=== PATIENT | male | born 1930 | race Caucasian/White ===

== ENCOUNTER 2016-07-13 06:27 | Day surgery (SDC) | payer OTHER ==
[~2016-07-13] VITALS: Ht 175.3 cm; Wt 78.0 kg
[~2016-07-13 06:27] MED LIST: AMLO5TAB96 PO; ASPI81 PO; FIORIC PO; LEVO.025 PO; PRAV80TA PO; VITA100017 PO; VITA10002 PO
[2016-07-13] MEDS ORDERED: NS 1000P @30 MLS/HR (KVO) IV SCH (07:00)
[2016-07-13] MEDS ORDERED: MULTTAB67 PO (07:04)
[2016-07-13 07:10] VITALS: BP 137/78; PULSE 77; RESP 18; TEMP 98.2; O2SAT 97
[2016-07-13 07:28] LABS: AUTOMATED NEUTROPHIL # 3.9 TH/MM3 (1.8-7.7); BASOPHIL % 0.6 % (0.0-2.0); EOSINOPHIL # 0.2 TH/MM3 (0-0.4); EOSINOPHIL % 2.9 % (0.0-4.0); HEMATOCRIT 43.1 % (39.0-51.0); HEMO FLAGS DIFF FINAL; LYMPH % 24.5 % (9.0-44.0); LYMPHOCYTE # 1.5 TH/MM3 (1.0-4.8); MEAN CELL VOLUME 94.3 FL (80.0-100.0); MEAN CORPUSCULAR HGB CONC 33.9 % (32.0-36.0); MONO % 8.1 % (0.0-8.0); NEUT % 63.9 % (16.0-70.0); PLATELET COUNT 183 TH/MM3 (150-450); RED BLOOD COUNT 4.57 MIL/MM3 (4.50-5.90); WHITE BLOOD COUNT 6.1 TH/MM3 (4.0-11.0)
[2016-07-13 07:39] LABS: APTT (PATIENT) 31.3 SEC (24.3-30.1); PROTHROMBIN TIME - PATIENT 10.6 SEC (9.8-11.6)
[2016-07-13 07:51] LABS: POTASSIUM 3.5 MEQ/L (3.5-5.1)
[2016-07-13] MEDS ORDERED: diphenhydrAMINE HCL 50 MG CAP ONE (07:56)
[2016-07-13] MEDS ORDERED: diphenhydrAMINE HCL 50 MG CAP PO SCH (08:30)
[2016-07-13] MEDS ORDERED: HEPARIN-NS/PF INJ 500 ML ONE (08:41)
[2016-07-13] MEDS ORDERED: MIDAZOLAM HCL 2 MG/2 ML VIAL ONE (08:54)
[2016-07-13] MEDS ORDERED: HEPARIN SODIUM - IV 10,000 UNITS/10 ML VIAL ONE (09:32)
[2016-07-13] MEDS ORDERED: IOHEXOL 350 MG/ML 100 ML BTL (for Cath Lab) OTHER ONE (10:00)
[2016-07-13] MEDS ORDERED: ATROPINE SULFATE 1 MG/10 ML SYRINGE ONE (11:49)
--- NOTE | 2016-07-13 13:14 | EC ---
Study Study Date:07/13/2016 STUDY CONCLUSIONS SUMMARY - Procedure narrative: Transthoracic echocardiography. Image quality was adequate. Scanning was performed from the parasternal, apical, and subcostal acoustic windows. - Left ventricle: The cavity size was normal. Wall thickness was at the upper limits of normal. Systolic function was normal. The estimated ejection fraction was 40%, in the range of 40% to 40%, by the Teichholz method. Wall motion was normal; there were no regional wall motion abnormalities. - Aortic valve: Trace regurgitation. Mean gradient:31mm Hg (S), suggesting moderate aortic stenosis. - Tricuspid valve: Trace to mild regurgitation. If LV function is below 40, please consider prescribing an ACEI or ARB or document rationale for non-use. PROCEDURE DATA STUDY STATUS: Elective. Procedure: Transthoracic echocardiography. Image quality was adequate. Scanning was performed from the parasternal, apical, and subcostal acoustic windows. Study completion: The patient tolerated the procedure well. Transthoracic echocardiography. M-mode, complete 2D, complete spectral Doppler, and color Doppler. Height: Height: 69in. Weight: Weight: 170.6lb. Body mass index: BMI: 25.3kg/m^2. Body surface area: BSA: 1.93m^2. Patient status: Inpatient. CARDIAC ANATOMY LEFT VENTRICLE: The cavity size was normal. Wall thickness was at the upper limits of normal. Systolic function was normal. The estimated ejection fraction was 40%, in the range of 40% to 40%, by the Teichholz method. Wall motion was normal; there were no regional wall motion abnormalities. AORTIC VALVE: Trileaflet; moderately thickened, moderately calcified leaflets. Doppler: Trace regurgitation. Valve area: 0.86cm^2 (Vmax). Indexed valve area: 0.45cm^2/m^2 (Vmax). Mean gradient:31mm Hg (S), suggesting moderate aortic stenosis. AORTA: Aortic root: The aortic root was normal in size. MITRAL VALVE: Structurally normal valve. Doppler: Transvalvular velocity was within the normal range. There was no evidence for stenosis. No regurgitation. LEFT ATRIUM: The atrium was normal in size. RIGHT VENTRICLE: The cavity size was normal. Wall thickness was normal. PULMONIC VALVE: Doppler: Transvalvular velocity was within the normal range. There was no evidence for stenosis. No regurgitation. TRICUSPID VALVE: Structurally normal valve. Doppler: Transvalvular velocity was within the normal range. Trace to mild regurgitation. PULMONARY ARTERY: The main pulmonary artery was normal-sized. Systolic pressure was within the normal range. RIGHT ATRIUM: The atrium was normal in size. PERICARDIUM: There was no pericardial effusion. SYSTEMIC VEINS: Inferior vena cava: The vessel was normal in size. Patient weight: 170.6lb _Ejection fraction:_ 65-75% _Fractional shortening:_ 32% up to 5Kg 5-11.5Kg 11.6-22.9Kg 23-45Kg 45-57Kg Aortic Root 7-13 <17 13-22 17-27 17-27 LA diam 6-13 <23 24-38 33-47 37-40 RVID 10-17 7-15 7-15 7-18 8-17 LVIDd 12-22 <32 24-38 33-47 37-40 LVPW 2-4 3-6 5-7 6-8 7-8 IVS 2-4 3-6 5-7 6-8 7-8 BASIC MEASUREMENTS ADULT NORMAL Left ventricle LV internal dimension, ED, chordal 44 mm 43-52 level, PLAX LV internal dimension, ES, chordal 37.4 mm 23-38 level, PLAX Fractional shortening, chordal level, *15 % >29 PLAX LV posterior wall thickness, ED 8.3 mm IVS/LVPW ratio, ED 0.85 <1.3 Ventricular septum Septal thickness, ED 7.03 mm Aortic valve Leaflet separation 15 mm 15-26 BASIC MEASUREMENTS ADULT NORMAL Aortic valve Leaflet separation 15 mm 15-26 Aorta Root diameter, ED 23 mm 20-37 Left atrium Anterior-posterior dimension, ES 29 mm 19-40 Anterior-posterior dimension index, ES 1.5 cm/m^2 <2.2 LA/aortic root ratio 1.26 DOPPLER MEASUREMENTS ADULT NORMAL Main pulmonary artery Pressure, S 23 mm Hg =30 Aortic valve Peak velocity, S 280 cm/s Mean velocity, S 192 cm/s VTI, S 61.9 cm Mean gradient, S 18 mm Hg Valve area, Vmax 0.86 cm^2 Valve area index, Vmax 0.45 cm^2/m^2 Mitral valve Maximal regurgitant velocity 221 cm/s Tricuspid valve Regurgitant peak velocity 195 cm/s Peak RV-RA gradient, S 15 mm Hg Maximal regurgitant velocity 195 cm/s Systemic veins Estimated CVP 10 mm Hg Right ventricle RV pressure, S *37 mm Hg <30 Pulmonic valve Peak velocity, S 186 cm/s LEGEND: Mean values are shown as u=mean value. Asterisk (*) arreola values outside specified normal range. Amended Vern Mcdonough [id number]
--- NOTE | 2016-07-13 13:24 | MA ---
cc: LUZ MARINA TIPTON DATE 07/13/2016 DATE OF 1930 PROCEDURE PERFORMED 1. Left heart catheterization 2. Right heart catheterization 3. Right common femoral artery angiography INDICATIONS Severe symptomatic aortic stenosis. PROCEDURE DESCRIPTION Consent signed. The patient was brought into the cardiac laborer syrup machine in a fasting state. The right groin was prepped and draped in a sterile fashion using 1% lidocaine for local anesthesia. A 6-Sudanese sheath was inserted into the right common femoral artery and an 8-Sudanese sheath was inserted into the right common femoral vein. Common femoral artery angiography was performed to confirm position of the sheath. Fluoroscopy guided a [place]Marielle was floated to wedge. Cardiac blood samples for cardiac outputs were taken followed by recording of pressures in the wedge PA, RV and RA. Then we proceeded to do a left heart catheterization. Then we perfomed selective right and left coronary angiography with JL-5 and a JR-4 diagnostic catheters. Angiography was taken in multiple views. A AL-2 over a straight stiff guidewire was used to cross the aortic valve. Then the catheter was exchanged over a wire with a dual angle lumen pigtail. Simultaneous aortic and LV recordings were taken. The patient tolerated the procedure well without complications. ESTIMATED BLOOD LOSS Less than 30 cc. The right arterial access site was closed with a Perclose device. The vein access site was closed with manual pressure. ANGIOGRAPHIC RESULTS The left ventricular pressure was 141/4 with an LVEDP of 6. The aortic pressure was 170/55 with a mean of 85 which was 20/4 with a mean of 11. RV 22/ 1 with a mean of 2. RA 3/3 with a mean of 1. ANGIOGRAPHIC RESULTS 1. The right coronary artery has anterior takeoff, is a dominant vessel, has minimal luminal irregularities, however, nonobstructive coronary artery disease and TARAS-3 flow. 2. The left main is patent with no obstructive coronary artery disease. 3. The LAD and a transapical vessel. It has a significant 90% lesion after S2. There is one big diagonal that bifurcates. The takeoff is right before the second septal. The lower branch of that diagonal has a 70% lesion. 4. The left circumflex artery is a small vessel. It gave off an OM-1 that is a OM-1 that has two side branches which are patent with nonobstructive coronary artery disease. CONCLUSION 1. Moderate to severe aortic stenosis 2. Two two-vessel coronary artery disease, the diagonal and the LAD. RECOMMENDATIONS Continue aggressive medical management for coronary artery disease. Patient has low EF will need to schedule for Dobutamine Stress Echocardiogram to better assess severity of the Aortic Stenosis (Low Flow Low Gradient ). If severe will coordinate with CT surgery for AVR and bypass evaluation. MD RACHELE Moncada/HAYES /12:49 PM /1:08 PM TOSHIA
--- NOTE | 2016-07-13 22:45 | EKG ---
Date Performed: 07/13/2016 Time Performed: 07:34:14 PTAGE: 86 years EKG: Sinus rhythm with PVC(s) with 1st degree A-V block Leftward axis Right bundle branch block Abnormal ECG PREVIOUS TRACING : 06/27/2015 23.36 DOCTOR: Yaritza Martinez Interpretating Date/Time 07/13/2016 22:44:00
== END 2016-07-13 17:15 | disposition home or self-care (01) ==
LOC: HDOC 06:27 → HDIC 06:28 → HDOC 17:15
PROVIDERS: ATTEND Radiology Vascular & Interventional Radiology
DX: I35.0 Nonrheumatic aortic (valve) stenosis (principal); I25.10 Atherosclerotic heart disease of native coronary artery without angina pectoris; I05.9 Rheumatic mitral valve disease, unspecified; I11.9 Hypertensive heart disease without heart failure; I45.2 Bifascicular block; I47.1 Supraventricular tachycardia; I27.2 Other secondary pulmonary hypertension; E78.5 Hyperlipidemia, unspecified
CPT/HCPCS: 80048; 82810; 85025; 85610; 85730; 93005; 93306; 93308; 93456; C1760; C1769; C1893; G0269; J0461; J1644; J2250; J3010; Q0163; Q9967

== ENCOUNTER 2016-08-15 07:44 | Outpatient (CLI) | payer OTHER ==
[~2016-08-15] VITALS: Ht 175.3 cm; Wt 78.5 kg
[~2016-08-15 07:44] MED LIST changes: -FIORIC PO; +MULTTAB67 PO
[2016-08-15] MEDS ORDERED: DOBUTamine 250 MG/D5W 250 ML PREMIX DRIP IV SCH (09:00)
[2016-08-15] MEDS ORDERED: SODIUM CHLOR 0.9% 1000 ML INJ 1,000 ML IV SCH (09:00)
[2016-08-15 09:02] VITALS: BP 129/81; PULSE 78; RESP 18; TEMP 98.3; O2SAT 96
[2016-08-15] MEDS ORDERED: METOPROLOL TARTRATE 5 MG/5 ML VIAL ONE (09:50)
--- NOTE | 2016-08-15 12:09 | MB ---
cc: MISTY LAFLEUR DATE OF CONSULTATION: 08/15/2016 DATE OF : 1930 HISTORY OF PRESENT ILLNESS This is a very pleasant 86-year-old patient of Dr. Lu, Dr. Goyal and Dr. Bret Vergara, with a history of aortic stenosis, chest pain and hyperlipidemia. He has had symptoms of just feeling tired and fatigued, some occasional shortness of breath with heavy exertion. He had a chest pain episode about 7-8 months ago but then was worked up and found that he had gastroesophageal reflux disease. He also had complained of some nonspecific left arm pain around the antecubital area. He denies any palpitations. No syncope. No edema. He is very active. He is on the treadmill 30 minutes a day. He kayaks. He drives. Denies having any orthopnea, coughing, bleeding or hemoptysis. The patient underwent a heart catheterization back in June and was found to have moderate to severe aortic stenosis. The left main was patent, no disease. There was 90% lesion in the LAD after the ____. There was a 70% lesion in the diagonal. Ejection fraction was 40%. The mean gradient was 31 mmHg by echo on 07/13/2016. There was no evidence of mitral stenosis or regurgitation. There was trace to mild tricuspid valve regurgitation. We were consulted to evaluate for aortic valve replacement, possible coronary artery bypass x2. PAST MEDICAL HISTORY 1. Aortic stenosis with a mean gradient of 31 mmHg, EF of 40%. 2. Benign prostatic hypertrophy. 3. Hyperlipidemia. 4. Hypertension. 5. History of paroxysmal ventricular tachycardia back in 2016 by Holter. They felt it was exacerbated by metoprolol. No need for Eliquis. PAST SURGICAL HISTORY Transurethral resection of the prostate. ALLERGIES PENICILLIN. MEDICATIONS Home meds include: 1. Amlodipine. 2. Aspirin. 3. Levothyroxine. 4. Pravachol. FAMILY HISTORY Mother at 76 from an GA. Father at age 35 with an GA. SOCIAL HISTORY Patient . Remote history of tobacco abuse, quit in 1966. Rare alcohol. Has two children. 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 REVIEW OF SYSTEMS GENERAL: In general no night sweats, fever, heat or cold intolerance. SKIN: No psoriasis, itching or hives. HEENT: No blurred vision, hearing loss. RESPIRATORY: Occasional shortness of breath with heavy exertion. CARDIOVASCULAR: No chest pain. No paroxysmal nocturnal dyspnea. No orthopnea. GASTROINTESTINAL: No diarrhea or vomiting. GENITOURINARY: No burning, frequency, urgency. ELASTIC TAPE INSERTER: No history of TIA, CVA, seizure disorder. ENDOCRINE: Positive for hypothyroidism. PHYSICAL EXAMINATION VITAL SIGNS: Blood pressure 130/80, heart rate 78, afebrile. GENERAL: Patient is awake, alert, in no acute distress. HEENT: Head is normocephalic, atraumatic. Pupils equal and reactive. Oral mucosa pink and moist. NECK: Supple. No JVD. HEART: Heart sounds S1, S2, regular rate and rhythm with a grade 2/6 systolic murmur. LUNGS: Clear to auscultation. No wheezes, rales or rhonchi. ABDOMEN: Soft, nontender. No masses or organomegaly. EXTREMITIES: No cyanosis, clubbing or edema. LABORATORY DATA There is no lab work at this time. Dobutamine stress will be resulted. Echo as above in the HPI. IMPRESSION AND PLAN This is an 86-year-old male fairly active with history of severe aortic stenosis, also two-vessel disease. The coronary films will be evaluated by Dr. Misty Lafleur and evaluation for possible surgery and planning as per Dr. Misty Lafleur. The patient has an outpatient appointment on August 18 at 3:30 p.m. Dictated by: ALIN Phillips MD CHLOE Gonzalez/MYRIAM /11:29 AM /12:09 PM
--- NOTE | 2016-08-16 10:38 | EKG ---
Date Performed: 08/15/2016 Time Performed: 09:55:04 PTAGE: 86 years EKG: Sinus rhythm with frequent PVCs with 1st degree A-V block. Leftward axis Right bundle branch block Abnormal ECG PREVIOUS TRACING : 07/13/2016 07.34 DOCTOR: Vern Mcdonough Interpretating Date/Time 08/16/2016 10:37:53
--- NOTE | 2016-08-16 10:38 | EKG ---
Date Performed: 08/15/2016 Time Performed: 10:20:52 PTAGE: 86 years EKG: Sinus rhythm with 1st degree A-V block. Leftward axis Right bundle branch block Lateral ST-T changes are nonspeci fic Abnormal ECG PREVIOUS TRACING : 08/15/2016 09.55 DOCTOR: Vern Mcdonough Interpretating Date/Time 08/16/2016 10:37:26
--- NOTE | 2016-08-17 10:11 | E2DS ---
Study Study Date:08/15/2016 STUDY CONCLUSIONS SUMMARY - Left ventricle: The cavity size was normal. Wall thickness was normal. Systolic function was mildly to moderately reduced. The estimated ejection fraction was in the range of 40% to 45%. Wall motion was normal; there were no regional wall motion abnormalities. - Aortic valve: Transvalvular velocity was increased more than expected, due to stenosis. There was severe stenosis. Valve area: 0.83cm^2(VTI). Valve area: 0.81cm^2 (Vmax). If LV function is below 40, please consider prescribing an ACEI or ARB or document rationale for non-use. PROCEDURE DATA STUDY STATUS: Elective. Procedure: Transthoracic echocardiography. Image quality was good. Scanning was performed from the parasternal, apical, and subcostal acoustic windows. Study completion: The patient tolerated the procedure well. Transthoracic echocardiography. M-mode, complete 2D, complete spectral Doppler, and color Doppler. Height: Height: 69in. Weight: Weight: 172.6lb. Body mass index: BMI: 25.5kg/m^2. Body surface area: BSA: 1.94m^2. Patient status: Inpatient. CARDIAC ANATOMY LEFT VENTRICLE: The cavity size was normal. Wall thickness was normal. Systolic function was mildly to moderately reduced. The estimated ejection fraction was in the range of 40% to 45%. Wall motion was normal; there were no regional wall motion abnormalities. AORTIC VALVE: Trileaflet; normal thickness leaflets. Doppler: Transvalvular velocity was increased more than expected, due to stenosis. There was severe stenosis. No regurgitation. Valve area: 0.83cm^2(VTI). Indexed valve area: 0.43cm^2/m^2 (VTI). Valve area: 0.81cm^2 (Vmax). Indexed valve area: 0.42cm^2/m^2 (Vmax). Mean gradient: 35mm Hg (S). Peak gradient: 55mm Hg (S). AORTA: Aortic root: The aortic root was normal in size. MITRAL VALVE: Structurally normal valve. Doppler: Transvalvular velocity was within the normal range. There was no evidence for stenosis. No regurgitation. LEFT ATRIUM: The atrium was normal in size. RIGHT VENTRICLE: The cavity size was normal. Wall thickness was normal. PULMONIC VALVE: Doppler: Transvalvular velocity was within the normal range. There was no evidence for stenosis. No regurgitation. TRICUSPID VALVE: Structurally normal valve. Doppler: Transvalvular velocity was within the normal range. No regurgitation. PULMONARY ARTERY: The main pulmonary artery was normal-sized. Systolic pressure was within the normal range. RIGHT ATRIUM: The atrium was normal in size. PERICARDIUM: There was no pericardial effusion. SYSTEMIC VEINS: Inferior vena cava: The vessel was normal in size. Patient weight: 172.6lb _Ejection fraction:_ 65-75% _Fractional shortening:_ 32% up to 5Kg 5-11.5Kg 11.6-22.9Kg 23-45Kg 45-57Kg Aortic Root 7-13 <17 13-22 17-27 17-27 LA diam 6-13 <23 24-38 33-47 37-40 RVID 10-17 7-15 7-15 7-18 8-17 LVIDd 12-22 <32 24-38 33-47 37-40 LVPW 2-4 3-6 5-7 6-8 7-8 IVS 2-4 3-6 5-7 6-8 7-8 BASIC MEASUREMENTS ADULT NORMAL Left ventricle Volume, ED, MOD, 1-plane 128 ml Volume, ES, MOD, 1-plane 67 ml Ejection fraction, MOD, 1-plane 48 % Stroke volume, MOD, 1-plane 61 ml Volume index, ED, MOD, 1-plane 66 ml/m^2 Volume index, ES, MOD, 1-plane 35 ml/m^2 Stroke index, MOD, 1-plane 31.4 ml/m^2 Volume, ED, MOD, 2-plane 117 ml Volume, ES, MOD, 2-plane 66 ml Ejection fraction, MOD, 2-plane 44 % Stroke volume, MOD, 2-plane 51 ml Volume index, ED, MOD, 2-plane 60 ml/m^2 Volume index, ES, MOD, 2-plane 34 ml/m^2 Stroke index, MOD, 2-plane 26.3 ml/m^2 Aorta Root diameter, ED 36 mm DOPPLER MEASUREMENTS ADULT NORMAL Aortic valve Peak velocity, S 370 cm/s Mean velocity, S 276 cm/s VTI, S 84.9 cm Mean gradient, S 35 mm Hg Peak gradient, S 55 mm Hg Valve area, VTI 0.83 cm^2 Valve area index, VTI 0.43 cm^2/m^2 Valve area, Vmax 0.81 cm^2 Valve area index, Vmax 0.42 cm^2/m^2 LEGEND: Mean values are shown as u=mean value. Asterisk (*) arreola values outside specified normal range. Prepared and signed by Vern Mcdonough [id number]
== END 2016-08-15 11:30 | disposition home or self-care (01) ==
LOC: HCAV 07:44 → HDIC 07:51 → HCAV 11:30
PROVIDERS: ATTEND Radiology Vascular & Interventional Radiology
DX: I11.9 Hypertensive heart disease without heart failure (principal); I35.0 Nonrheumatic aortic (valve) stenosis; I44.1 Atrioventricular block, second degree; I45.10 Unspecified right bundle-branch block
CPT/HCPCS: 93005; 93350

== ENCOUNTER 2016-08-23 13:15 | Inpatient (IN) | payer OTHER, MEDICARE ==
[~2016-08-23] VITALS: Ht 175.3 cm; Wt 80.6 kg
[~2016-08-23 13:15] MED LIST changes: -AMLO5TAB96 PO; -ASPI81 PO; -LEVO.025 PO; -PRAV80TA PO; -VITA100017 PO; -VITA10002 PO
[2016-09-06] MEDS ORDERED: LEVO25TA4 PO (11:33)
[2016-09-06] MEDS ORDERED: PRAV80TA2 PO (11:33)
[2016-09-06] MEDS ORDERED: AMLO10TA2 PO (11:33)
[2016-09-06] MEDS ORDERED: ASPI1TAB69 PO (11:33)
[2016-09-06] MEDS ORDERED: VITA500T PO (11:33)
[2016-09-06] MEDS ORDERED: VITA10002 PO (11:33)
[2016-09-08] VITALS (15 sets, daily range): BP systolic 76–131; BP diastolic 42–87; PULSE 57–75; RESP 10–24; TEMP 96.6–98; O2SAT 94–98
[2016-09-08] MEDS ORDERED: HEPARIN SODIUM - SQ 10,000 UNITS/ML VIAL SQ ONE (05:00)
[2016-09-08] MEDS ORDERED: PROTAMINE SULFATE 250 MG/25 ML VIAL IV ONE (05:00)
[2016-09-08] MEDS ORDERED: MAGNESIUM SULFATE 1000 MG/2 ML VIAL (PED) IV ONE (05:00)
[2016-09-08] MEDS ORDERED: DEXMEDETOMIDINE INJ 50 ML IV ONE (05:00)
[2016-09-08] MEDS ORDERED: CALCIUM CHLORIDE 10% SOLN 1 GRAM/10 ML SYR IV ONE (05:00)
[2016-09-08] MEDS ORDERED: NITROGLYCERIN-DEXTROSE INJ 250 ML IV ONE (05:00)
[2016-09-08] MEDS ORDERED: VECURONIUM BROMIDE 10 MG VIAL IV ONE (05:00)
[2016-09-08] MEDS ORDERED: ESMOLOL HCL 100 MG/10 ML VIAL IV ONE (05:00)
[2016-09-08] MEDS ORDERED: AMINOCAPROIC ACID INJ 250 MG/ML 20 ML VIAL IV ONE (05:00)
[2016-09-08] MEDS ORDERED: ACETAMINOPHEN 1000 MG/100 ML VIAL IV ONE (05:00)
[2016-09-08] MEDS ORDERED: PHENYLEPHRINE HCL 10 MG/ML VIAL IV ONE (05:00)
[2016-09-08] MEDS ORDERED: GLYCOPYRROLATE 0.2 MG/ML VIAL IV ONE (05:00)
[2016-09-08] MEDS ORDERED: CHLORHEXIDINE GLUCONATE 2 % 1 PACK (2 CLOTHS) TOPICAL PRN (06:15)
[2016-09-08] MEDS ORDERED: POVIDONE IODINE 5% (ANTISEPSIS KIT) 4 APPLICATIONS EACH NARE PRN (06:15)
[2016-09-08] MEDS ORDERED: LACTATED RINGER'S 1000 ML IV PRN (06:15)
[2016-09-08] MEDS ORDERED: SODIUM CHLORID 0.9% 500 ML IV PRN (06:15)
[2016-09-08] MEDS ORDERED: INSULIN HUMAN REGULAR 1,000 UNITS/10 ML VIAL SQ PRN (06:15)
[2016-09-08] MEDS ORDERED: METOPROLOL TARTRATE 25 MG TAB PO PRN (06:15)
[2016-09-08] MEDS ORDERED: SODIUM CHLORIDE 0.9% FLUSH 10 ML FLUSH IV FLUSH PRN (06:15)
[2016-09-08] MEDS ORDERED: VANCOMYCIN 1000 MG in NS IRR BTL 1000 ML IRRIGATION SCH (06:30)
[2016-09-08] MEDS ORDERED: CHLORHEXIDINE GLUCONATE 4% SOLN 120 ML BTL TOPICAL SCH (06:30)
[2016-09-08] MEDS ORDERED: VANCOMYCIN 1000 MG/NS 250 ML IV SCH ×2 (06:30)
[2016-09-08] MEDS ORDERED: INSULIN REGULAR 100 UNITS in NS 100 ML IV SCH (06:30)
[2016-09-08] MEDS ORDERED: METOPROLOL TARTRATE 25 MG TAB PO SCH (06:30)
[2016-09-08] MEDS ORDERED: PAPAVERINE 60 MG-NITROGLYCERIN 100 MCG-DILTIAZEM 100 MG in NS 100 ML IRRIGATION SCH ×4 (06:30)
[2016-09-08] MEDS ORDERED: HEPARIN SODIUM - SQ 10,000 UNITS/ML VIAL ONE (06:35)
[2016-09-08] MEDS ORDERED: VANCOMYCIN HCL 1000 MG VIAL ONE ×2 (06:35→11:52)
[2016-09-08] MEDS ORDERED: methylPREDNISolone SOD SUCC 125 MG/2 ML VIAL ONE (06:36)
[2016-09-08] MEDS ORDERED: CUSTODIOL HTK IRR SOLN 1,000 ML ONE (07:44)
[2016-09-08] MEDS ORDERED: POTASSIUM CHLORIDE 20 MEQ/10 ML VIAL ONE (07:44)
[2016-09-08] MEDS ORDERED: ALBUMIN HUMAN 25% 12.5 GM/50 ML BAGP IV ONE (07:44)
[2016-09-08] MEDS ORDERED: SODIUM BICARBONATE 8.4% INJ 50 ML ONE (07:45)
[2016-09-08] MEDS ORDERED: MANNITOL INJ 50 ML ONE (07:46)
[2016-09-08] MEDS ORDERED: HEPARIN SODIUM - IV 10,000 UNITS/10 ML VIAL ONE (07:46)
[2016-09-08] MEDS: MUPIROCIN 2% OINT 22 GM TUBE EACH NARE SCH ×2 (09:00→22:29)
[2016-09-08] MEDS ORDERED: DEXTROSE 5% IN WATER INJ 500 ML IV ONE (09:24)
[2016-09-08] MEDS ORDERED: LACTATED RINGER'S 1000 ML INJ 2,000 ML IV ONE (09:25)
[2016-09-08] MEDS ORDERED: NORMOSOL R INJ 1,000 ML IV ONE (09:25)
[2016-09-08] MEDS ORDERED: SODIUM CHLORID 0.9% 500 ML INJ 500 ML IV ONE (09:25)
[2016-09-08] MEDS ORDERED: LACTATED RINGER'S 1000 ML INJ 500 ML IV PRN (12:12)
[2016-09-08] MEDS ORDERED: oxyCODONE/ACETAMINOPHEN 5 MG/325 MG TAB PO PRN (12:15)
[2016-09-08] MEDS ORDERED: DEXTROSE 50% IN WATER 50 ML VIAL(D50) IV PUSH PRN (12:15)
[2016-09-08] MEDS ORDERED: MAGNESIUM SULFATE INJ 2 GM in SODIUM CHLORIDE 0.9% INJ 100 ML IV PRN ×4 (12:15)
[2016-09-08] MEDS ORDERED: POTASSIUM CHLOR 20 MEQ PREMIX 100 ML IV PRN ×3 (12:15)
[2016-09-08] MEDS ORDERED: ACETAMINOPHEN 325 MG TAB PO PRN (12:15)
[2016-09-08] MEDS ORDERED: METOPROLOL TARTRATE 5 MG/5 ML VIAL IV PUSH PRN (12:15)
[2016-09-08] MEDS ORDERED: CALCIUM CHLORIDE 10% 1 GRAM/10 ML VIAL IV PRN (12:15)
[2016-09-08] MEDS ORDERED: ACETAMINOPHEN 650 MG SUPP RECTAL PRN (12:15)
[2016-09-08] MEDS ORDERED: hydrALAZINE HCL 20 MG/ML VIAL IV PRN (12:15)
--- NOTE | 2016-09-08 12:28 | PD.OP ---
cc: Vern Mcdonough MD; Misty Lafleur MD Operative Report Date of Surgery: Sep 08, 2016 Preoperative Diagnosis: (1) Aortic stenosis (2) CAD (coronary artery disease) (3) Diastolic heart failure Postoperative Diagnosis: same Procedure: AVR with a 25 Intuity tissue valve CABG x 1 BORRERO to LAD - good JANETTE Anesthesia: Dr. Ryan Surgeon: Misty Lafleur Manager Of Business(s): Jose Maria Ko Operation and Findings: Cross-clamp time 54 minutes Cardiopulmonary bypass time 76 minutes Drains 36 Portuguese mediastinum and 32 Portuguese left pleural chest tubes Findings: The patient had a moderately calcified trileaflet aortic valve with fusion of the right and left cusps. The LAD target was good. At the conclusion of the procedure, intraoperative JANETTE showed a well-seated aortic valve with no perivalvular leaks. Left ventricular function was normal. Disposition: The patient was transferred to the CVICU in stable, but guarded condition. Operation in detail: After adequate general anesthesia, the patient was prepped and draped in the usual manner. A median sternotomy was performed and electrocautery was used to obtain hemostasis. Left internal mammary artery was procured as a pedicle from the 7th ribs to the 1st rib in the usual manner. The pericardium was opened and the distal mammary artery was instrumented for anastomosis after adequate heparinization for cardiopulmonary bypass. The heart was instrumented for cardiopulmonary bypass in the usual manner. Antegrade Custodiol cardioplegia were used. The left ventricle was vented through the right superior pulmonary vein. The patient was placed on cardiopulmonary bypass and target vessel was identified. An aortic cross-clamp was applied and the heart was arrest is using cold antegrade cardioplegia. After adequate arrest, the distal LAD was opened with a [place] blade and found to be a 1-1/2 millimeters good target. The left internal mammary artery was approximated to the LAD using a running 7 0 Prolene suture. The pedicle was tacked to the epicardium using interrupted 5 0 silk suture. Antegrade cardioplegia was administered following which the aorta was vented and opened above the sinotubular ridge. The valve was found to be trileaflet with partial fusion of the right and left coronary cusp. There was moderate calcification. Aortic valve was excised sharply and the annulus was decalcified using rongeurs. The LV was copiously irrigated with cold saline. The annulus was sized to a 25 Intuity bioprosthetic valve which was seated using 3 2-0 Tycron sutures. After seating the valve and deploying it with the balloon at 5 YASMANI, the aorta was repaired in 2 layers using running 4-0 Prolene suture. The patient was placed in steep Trendelenburg. The aorta and left ventricle were vented and the aortic cross-clamp was removed for a total cross-clamp time of 54 minutes. The heart resumed a bradycardic rhythm which eventually converted to a sinus rhythm after several minutes. The heart was filled allowed to eject. The aortic valve replacement was then assessed by intraoperative JANETTE. The valve was found to be well seated with no perivalvular leak. Left ventricular function was noted to be normal. The patient was weaned from cardiopulmonary bypass for total bypass run of 76 minutes. Protamine was administered to reverse the heparin and all cannulae were removed without incident. A 36 Portuguese mediastinal/ 32 Portuguese left pleural chest tubes were positioned and each was secured to the skin with a 0 silk suture. The operative field was then examined again for hemostasis which was obtained using electrocautery. The wound was then closed in layers by approximating the sternal tables with interrupted number 6 stainless steel wires following which the presternal fashion was approximately around a 1. PDS suture. The wound was copiously irrigated. The subcutaneous tissue was approximated using a running 2-0 Vicryl suture and the skin was approximated with running 4-0 Monocryl subcuticular stitch. All sponge and instrument counts were correct at the close of the procedure and the patient was transported the CVICU in stable, but guarded condition. Misty Lafleur M.D., F.A.C.C., F.A.C.S. Misty Lafleur MD Sep 08, 2016 12:28
[2016-09-08] MEDS ORDERED: Post-op Orders (for Pharmacy) MISC OTHER ONE (12:55)
[2016-09-08] MEDS ORDERED: MIDAZOLAM HCL 5 MG/5 ML VIAL ONE (13:52)
[2016-09-08] MEDS ORDERED: fentaNYL CITRATE 250 MCG/5 ML AMP ONE (13:52)
[2016-09-08] MEDS ORDERED: fentaNYL CITRATE 1000 MCG/20 ML VIAL ONE (13:52)
[2016-09-08] MEDS ORDERED: CLEVIDIPINE INJ 50 ML IV SCH (14:00)
[2016-09-08] MEDS ORDERED: INSULIN REGULAR (IV INFUSION) 100 UNITS in SODIUM CHLORIDE 0.9% INJ 99 ML IV SCH (14:00)
[2016-09-08] MEDS ORDERED: POTASSIUM CHLORIDE 20 MEQ CONTROLLED RELEASE TAB PO PRN ×2 (14:00)
[2016-09-08] MEDS: CALCIUM CHLORIDE INJ 1 GM in SODIUM CHLORIDE 0.9% INJ 100 ML IV PRN ×2 (14:05→18:42)
--- NOTE | 2016-09-08 14:32 | RADRPT ---
EXAM DATE/TIME: 09/08/2016 13:11 [facility] COMPARISON: No previous studies available for comparison. INDICATIONS : Post CABG. MEDICAL HISTORY : Hypertension. Aortic stenosis. SURGICAL HISTORY : Cardiac cauterization. TURP. ENCOUNTER: Initial ACUITY: 1 day PAIN SCORE: Non-responsive. LOCATION: Bilateral chest FINDINGS: Single view of the chest demonstrates the patient has an endotracheal tube, left chest tube and left subclavian central line all in good position. There is no visible pneumothorax. No significant infi ltrate or mass. Mediastinal drain is in place. CONCLUSION: Tubes and catheters as described above. The lungs are grossly clear. Jerome Connor MD on September 08, 2016 at 14:11 Board Certified Radiologist. This report was verified electronically.
[2016-09-08] MEDS ORDERED: ACETAMINOPHEN 1000 MG/100 ML VIAL IV SCH (15:00)
[2016-09-08] MEDS ORDERED: RESP: RACEPINEPHRINE 2.25% 0.5 ML NEB NEB PRN (18:15)
[2016-09-08] MEDS ORDERED: RESP: ALBUTEROL 2.5 MG/IPRATROPIUM 0.5 MG NEB (PRN) NEB (18:15)
[2016-09-08] MEDS: ACETAMINOPHEN 1000 MG/100 ML VIAL IV SCH ×2 (18:38→23:44)
[2016-09-08] MEDS: ONDANSETRON HCL 4 MG/2 ML VIAL IV PUSH PRN (18:52)
[2016-09-08] MEDS: RESP: ALBUTEROL 2.5 MG/IPRATROPIUM 0.5 MG NEB (SCH) NEB (21:40)
[2016-09-08] MEDS: VANCOMYCIN INJ 1,000 MG in SODIUM CHLOR 0.9% 250 ML INJ 250 ML IV SCH (22:31)
[2016-09-08] MEDS: AMIODARONE 200 MG TAB PO SCH (22:32)
[2016-09-08] MEDS: PRAVASTATIN SOD 80 MG TAB PO SCH (22:32)
[2016-09-09] VITALS (10 sets, daily range): BP systolic 87–150; BP diastolic 41–85; PULSE 63–90; RESP 18–26; TEMP 98–98.9; O2SAT 90–98
[2016-09-09] MEDS: RESP: ALBUTEROL 2.5 MG/IPRATROPIUM 0.5 MG NEB (SCH) NEB ×2 (04:19→14:28)
[2016-09-09] MEDS: ONDANSETRON HCL 4 MG/2 ML VIAL IV PUSH PRN (04:32)
[2016-09-09 05:59] LABS: MEAN CELL VOLUME 94.5 FL (80.0-100.0); MEAN CORPUSCULAR HEMOGLOBIN 32.1 PG (27.0-34.0); MEAN CORPUSCULAR HGB CONC 33.9 % (32.0-36.0); PLATELET COUNT 103 TH/MM3 (150-450); RED CELL DISTRIBUTION WIDTH 13.1 % (11.6-17.2); REVIEW FLAG FINAL; WHITE BLOOD COUNT 13.1 TH/MM3 (4.0-11.0)
[2016-09-09] MEDS: PANTOPRAZOLE SOD 40 MG DELAYED RELEASE TAB PO SCH (06:04)
[2016-09-09] MEDS: ACETAMINOPHEN 1000 MG/100 ML VIAL IV SCH ×2 (06:04→13:09)
[2016-09-09] MEDS: LEVOTHYROXINE SODIUM 25 MCG TAB PO SCH (06:04)
[2016-09-09 06:40] LABS: BICARBONATE 23.2 MEQ/L (21.0-32.0); MAGNESIUM 2.2 MG/DL (1.5-2.5); POTASSIUM 4.2 MEQ/L (3.5-5.1)
--- NOTE | 2016-09-09 07:02 | RADRPT ---
EXAM DATE/TIME: 09/09/2016 04:33 [facility] COMPARISON: CHEST SINGLE AP, September 08, 2016, 13:11. INDICATIONS : Post CABG. MEDICAL HISTORY : Hypertension. Aortic stenosis. SURGICAL HISTORY : None. Cardiac cath. ENCOUNTER: Subsequent ACUITY: 4 - 6 days PAIN SCORE: Non-responsive. LOCATION: Bilateral chest FINDINGS: The ET tube has been removed. There is no pneumothorax. Left chest tube remains in place. There is so me atelectasis in the lung bases, left greater than right. Otherwise no significant changes compared to the prior study. CONCLUSION: Bibasilar atelectasis, left greater than right. Gurinder German MD on September 09, 2016 at 6:59 Board Certified Radiologist. This report was verified electronically.
[2016-09-09] MEDS ORDERED: ALBUMIN HUMAN 5% 12.5 GM/250 ML BOTTLE IV ONE (08:47)
[2016-09-09] MEDS: CYANOCOBALAMIN 1,000 MCG TAB PO SCH (08:49)
[2016-09-09] MEDS: VANCOMYCIN INJ 1,000 MG in SODIUM CHLOR 0.9% 250 ML INJ 250 ML IV SCH ×2 (08:49→21:38)
[2016-09-09] MEDS: AMIODARONE 200 MG TAB PO SCH (08:49)
[2016-09-09] MEDS: ASCORBIC ACID 500 MG TAB PO SCH (08:49)
[2016-09-09] MEDS: ASPIRIN 81 MG CHEW TAB PO SCH (08:49)
[2016-09-09] MEDS: MUPIROCIN 2% OINT 22 GM TUBE EACH NARE SCH ×2 (08:49→21:00)
[2016-09-09] MEDS ORDERED: MULTIVITAMIN TAB PO SCH (09:00)
[2016-09-09] MEDS ORDERED: GLUCAGON 1 MG/ML VIAL OTHER PRN (09:15)
[2016-09-09] MEDS ORDERED: DEXTROSE 50% IN WATER 50 ML VIAL(D50) IV PRN (09:15)
[2016-09-09] MEDS ORDERED: BISACODYL 10 MG SUPP RECTAL PRN (09:15)
[2016-09-09] MEDS ORDERED: KETOROLAC TROMETHAMINE 30 MG/ML (IVP) VIAL IV PUSH ONE (09:15)
[2016-09-09] MEDS ORDERED: SOD PHOSPHATE/SOD BIPHOSPHATE (ADULT) ENEMA 133ML RECTAL PRN (09:15)
--- NOTE | 2016-09-09 09:37 | EKG ---
Date Performed: 09/09/2016 Time Performed: 04:32:40 PTAGE: 86 years EKG: Sinus rhythm with borderline 1st degree A-V block Right bundle branch block Abnormal ECG PREVIOUS TRACING : 08/15/2016 10.20 Compared to previous tracing, PVCs are no longer present. DOCTOR: Lizandro Vargas Interpretating Date/Time 09/09/2016 09:36:56
[2016-09-09] MEDS: MAGNESIUM HYDROXIDE SUSP 30 ML CUP PO SCH (10:07)
[2016-09-09] MEDS: INSULIN ASPART SUPPLEMENTAL SCALE SQ SCH ×4 (10:15→21:41)
--- NOTE | 2016-09-09 15:06 | PD.CAR.PN ---
CVT Progress Note Subjective/Hospital Course: 86/ m hx of Aortic stenosis , chest pain / underwent elective cath by Dr Goyal/ found to have moderate to sever , 2 vessel CAD diagonal and LAD / EF 40% PMH: , BPH, HLP, CAD, HTN, RBBB, SVT, Wenckebach block, surgery : 09/08 AVR with a 25 Intuity tissue valve, CABG x 1, BORRERO to LAD - good + steroid intraop, 1500cc crystalloid, 1000cc cellsaver, EBL 2000 09/09 extubated after surgery, BP on labile side, HX of preop wenkebach, will dc amiodarone will need low dose TIANA when BP tolerates no pressors, weaned off insulin gtt stable for transfer to stepdown unit Objective: GENERAL: SKIN: Warm and dry.prevena to chest HEAD: Normocephalic. EYES: No scleral icterus. No injection or drainage. NECK: Supple, trachea midline. No JVD or lymphadenopathy. CARDIOVASCULAR: slightly irregular rhythm without murmurs, + rubs. RESPIRATORY: diminished in bases/ chest tube to wall suction/ drained 360cc/ 12 hours, no air leak Breath sounds equal bilaterally. No accessory muscle use. GASTROINTESTINAL: Abdomen soft, non-tender, nondistended. MUSCULOSKELETAL: No cyanosis, or edema. BACK: Nontender without obvious deformity. No CVA tenderness. Vital Signs Date Time Temp Pulse Resp B/P Pulse Ox O2 Delivery O2 Flow Rate FiO2 09/09/16 12:00 98.4 77 18 96/56 94 Arterial Line 09/09/16 12:00 76 09/09/16 10:48 16 09/09/16 08:10 95 Nasal Cannula 4.00 09/09/16 07:00 76 09/09/16 07:00 95 Nasal Cannula 4.00 09/09/16 07:00 98.4 76 18 87/48 95 109/52 09/09/16 04:00 98.4 74 20 104/57 98 126/56 09/09/16 04:00 66 09/09/16 00:15 20 09/09/16 00:15 20 09/09/16 00:00 66 09/09/16 00:00 98.7 66 20 87/51 95 99/41 09/08/16 22:02 97 Nasal Cannula 4.00 09/08/16 22:00 96 Nasal Cannula 4.00 09/08/16 21:45 95 09/08/16 21:45 96 Nasal Cannula 4 09/08/16 21:35 97.3 09/08/16 21:22 96 30 09/08/16 20:00 30 09/08/16 20:00 95 Mechanical Ventilator 30 09/08/16 20:00 97.0 61 16 97/58 95 108/46 09/08/16 19:45 96 Mechanical Ventilator 30 09/08/16 19:40 59 09/08/16 19:34 96 30 09/08/16 18:08 96.8 09/08/16 16:25 98 40 09/08/16 16:19 96.6 09/08/16 16:00 40 09/08/16 15:00 57 09/08/16 15:00 97.4 57 12 94/49 98 96/42 Labs: Laboratory Tests Test 09/09/16 05:40 White Blood Count 13.1 TH/MM3 (4.0-11.0) Red Blood Count 3.50 MIL/MM3 (4.50-5.90) Hemoglobin 11.2 GM/DL (13.0-17.0) Hematocrit 33.0 % (39.0-51.0) Mean Corpuscular Volume 94.5 FL (80.0-100.0) Mean Corpuscular Hemoglobin 32.1 PG (27.0-34.0) Mean Corpuscular Hemoglobin 33.9 % Concent (32.0-36.0) Red Cell Distribution Width 13.1 % (11.6-17.2) Platelet Count 103 TH/MM3 (150-450) Mean Platelet Volume 8.8 FL (7.0-11.0) Sodium Level 143 MEQ/L (136-145) Potassium Level 4.2 MEQ/L (3.5-5.1) Chloride Level 111 MEQ/L (98-107) Carbon Dioxide Level 23.2 MEQ/L (21.0-32.0) Anion Gap 9 MEQ/L (5-15) Blood Urea Nitrogen 18 MG/DL (7-18) Creatinine 0.68 MG/DL (0.60-1.30) Estimat Glomerular Filtration 111 ML/MIN Rate (>89) Random Glucose 141 MG/DL (74-106) Calcium Level 8.1 MG/DL (8.5-10.1) Magnesium Level 2.2 MG/DL (1.5-2.5) Result Diagram: 09/09/16 0540 09/09/1640 Telemetry: Sinus arrhythmia, some evidence 2 degree HB (1) Aortic stenosis (2) CAD (coronary artery disease) Plan: start BB in am , on statin and ASA stop amiodarone consider diuresis OOB/ pulm toileting (3) S/P AVR (aortic valve replacement) (4) AV block Plan: stop amiodarone (5) S/P CABG x 1 (6) HTN (hypertension) Plan: BP labile (7) Diastolic heart failure Plan: start TIANA when BP allows Karen Redman Sep 09, 2016 15:06
--- NOTE | 2016-09-09 15:08 | HHI.FF ---
Face to Face Verification Diagnosis: (1) Aortic stenosis (2) CAD (coronary artery disease) (3) S/P AVR (aortic valve replacement) (4) S/P CABG x 1 (5) Diastolic heart failure (6) AV block (7) HTN (hypertension) Physical Therapy Order: Evaluate and Treat Home Health Nursing Order: Signs/symptoms of disease process CHF education Wound care and dressing changes Nursing assessment with vital signs Instructions: PREVENA Single Use Negative Wound Therapy System Caregiver Instruction Sheet 1. A Prevena dressing system was applied to the chest incision during surgery , to promote wound healing. It works via a suction device (negative pressure wound therapy) to remove low to moderate levels of exudate (drainage) and infectious materials. We recommend that the device stay in place for up to seven days, from day of surgery. 2. Day of Surgery_09/08/16 Day of Removal ____/ 3. The dressing should only be removed by a health career resource specialist. Please arrange removal of device to coincide with Home Health visit and or with Nursing staff at Rehab 4. If skin reddening or irritation of skin occurs, or excessive drainage, please notify the Cardiovascular Surgeons office at [phone]. 5. Light showering is permissible; however the pump should be disconnected and placed in safe location, where it will not get wet. The dressing should not be exposed to direct spray or submerged in water. No bath tub / shower only. Ensure the end of the tubing attached to the dressing is facing down so that water does not enter the top of the tube. 6. To remove Prevena dressing: press purple button to turn off device / remove the suction. Then disconnect the tubing from the pump. The fixation strips should be stretched away from the skin and the dressing lifted at one corner and peeled back until it has been fully removed. 7. After removal, it is ok to shower daily using liquid dial soap and clean wash cloth, rinse and pat dry, and leave incision open to air dry. For any concerns regarding Prevena dressing, and or wounds, please contact Calli Burns, patient navigator at [phone] or notify the Cardiovascular Surgeons office at [phone]. Heart and Vascular Surgery patients *Special attention to sternal dressing Mandatory frequency Assess and evaluation, 4 days in a row The next week 3X week 2 times a week for 4 weeks 1 time a week for 5 weeks Schedule Heart and Vascular patients for full 60 day certification period Initial visit Review Open Heart Surgery Discharge Instructions (Sternal precautions, Activity, Elastic hose, Incision care, Driving, Incentive spirometry, Smoking, Adell, Work and other) Need Betadine to paint incision Medication reconciliation Importance of follow up care/ check on appointments Make calendar record temperature daily When to call [facility] at Home nurse, review instructions, phone list Incentive Spirometry, demonstration Visit 1- Begin discharge instruction for patient family and/ or caregiver using teach back method- Signs and symptoms of infection Disease characteristics Medicines and side effects Foods and nutrition/ appetite Infection control/ hand washing/ hygiene Visit 2- Continue teaching Discharge instructions- include additional information on smoking cessation , sternal dressing (sternal vac) Visit 3- Continue teaching- Cough and deep breathing, incision monitoring. Choose my plate Visit 4- Continue teaching- Discuss limitations Discuss how they are feeling Discuss progress toward goals Remaining visits- continue teaching and monitoring Incentive spirometry Q1 hr x 10, while awake, also use acapella device hourly whole awake Sternal Breast Bone Precautions: NO pushing or pulling, ( pt must use sternal pillow to support chest with all activities and with coughing ( takes up to 3 months breast bone to heal ) Daily incision care: ok to shower daily, no tub bath. Wash all incisions with liquid dial soap, clean wash cloth to each site, rinse and pat dry. Observe for any signs of infection, such as drainage which is dark yellow, stewart, green or foul smelling. Immediately report to the surgeon any drainage from the chest incision, or legs, and for any abnormal drainage from the chest tube sites. Notify surgeon if any temp >101.5 degrees F. When specialty dressing removed/ or if you do not have one, continue to shower daily as above, then rinse and pat incision dry and paint with betadine daily x 5 days. Allow steri strips to fall off if you have any. Avoid lotions, creams, salves, oils, etc. for the first month Please see attached forms for additional instructions regarding post Open Heart specialty wound vacuum dressings. ROMULO or Prevena , Dressing to be removed by Nursing staff on _09/15/[address] Lafleur patients , please obtain CBC, BMP, PA & Lat CXR in 2 weeks, results to Dr. Lafleur ( prescription will be given) ( ) (Tele: [phone]) , Valve replacement pts will need 2decho in 2 weeks with results to Dr. Lafleur . Please obtain 2 d echo at your laborer electroplating office if possible F/U appointment: as per DC instructions: PCP in 2 weeks, CV surgeon 2 weeks, Real Estate Operations Manager 3-4 weeks For any questions regarding incisions/ dressing / meds / post op care or above Symptoms, Monday 8am-5pm Heart & Vascular Surgery Office ( Dr. Erazo & Dr. Lafleur), After Hours / Nights (5pm -8am) Weekends and Holidays Please call [facility] ([facility]) Charge Nurse I have seen patient Raymundo Tanner on 09/09/16. My clinical findings support the need for the requested home health care services because: Deconditioned w/ increased weakness I certify that my clinical findings support that this patient is homebound because: Post-op weakness Karen Redman Sep 09, 2016 15:08
[2016-09-09] MEDS ORDERED: PILL SPLITTER OTHER PRN (15:30)
[2016-09-09] MEDS: ACETAMINOPHEN/HYDROcodone 325 MG/5 MG TAB PO PRN ×2 (17:21→23:56)
[2016-09-09] MEDS ORDERED: METOPROLOL TARTRATE 25 MG TAB PO SCH (21:00)
[2016-09-09] MEDS: PRAVASTATIN SOD 80 MG TAB PO SCH (21:37)
[2016-09-09] MEDS: DOCUSATE SODIUM 100 MG CAP PO SCH (21:37)
[2016-09-09] MEDS: SENNOSIDES 8.6 MG TAB PO SCH (21:37)
[2016-09-10] VITALS (26 sets, daily range): BP systolic 102–137; BP diastolic 57–69; PULSE 62–93; RESP 22–26; TEMP 98–99.6; O2SAT 90–94
[2016-09-10] MEDS: INSULIN ASPART SUPPLEMENTAL SCALE SQ SCH ×6 (03:56→21:00)
[2016-09-10] MEDS: LEVOTHYROXINE SODIUM 25 MCG TAB PO SCH (06:05)
[2016-09-10] MEDS: PANTOPRAZOLE SOD 40 MG DELAYED RELEASE TAB PO SCH (06:05)
[2016-09-10 06:53] LABS: HEMATOCRIT 29.6 % (39.0-51.0); LYMPH % 6.1 % (9.0-44.0); LYMPHOCYTE # 0.9 TH/MM3 (1.0-4.8); MEAN CELL VOLUME 94.5 FL (80.0-100.0); MEAN CORPUSCULAR HEMOGLOBIN 32.7 PG (27.0-34.0); MEAN CORPUSCULAR HGB CONC 34.5 % (32.0-36.0); MONO % 8.6 % (0.0-8.0); NEUT % 85.3 % (16.0-70.0); PLATELET COUNT 78 TH/MM3 (150-450); RED BLOOD COUNT 3.13 MIL/MM3 (4.50-5.90); RED CELL DISTRIBUTION WIDTH 13.4 % (11.6-17.2); WHITE BLOOD COUNT 14.1 TH/MM3 (4.0-11.0)
[2016-09-10 06:59] LABS: HEMO FLAGS AUTO DIFF
[2016-09-10 07:20] LABS: BICARBONATE 28.8 MEQ/L (21.0-32.0); MAGNESIUM 2.6 MG/DL (1.5-2.5); POTASSIUM 4.7 MEQ/L (3.5-5.1)
[2016-09-10] MEDS: RESP: ALBUTEROL 2.5 MG/IPRATROPIUM 0.5 MG NEB (SCH) NEB ×3 (08:09→20:44)
[2016-09-10 08:34] LABS: PLATELET ESTIMATE SMEAR LOW (NORMAL); PLATELET MORPHOLOGY NORMAL (NORMAL); SCAN/DIFF AUTO DIFF CONFIRMED
[2016-09-10] MEDS: ASPIRIN 81 MG CHEW TAB PO SCH (09:00)
[2016-09-10] MEDS: MUPIROCIN 2% OINT 22 GM TUBE EACH NARE SCH ×2 (09:00→21:00)
[2016-09-10] MEDS: DOCUSATE SODIUM 100 MG CAP PO SCH ×2 (09:46→21:00)
[2016-09-10] MEDS: ASCORBIC ACID 500 MG TAB PO SCH (09:46)
[2016-09-10] MEDS: MULTIVITAMINS/MINERALS THERAPEUTIC TAB PO SCH (09:46)
[2016-09-10] MEDS: MAGNESIUM HYDROXIDE SUSP 30 ML CUP PO SCH (09:46)
[2016-09-10] MEDS: POLYETHYLENE GLYCOL 17 GM PKG PO SCH (09:46)
[2016-09-10] MEDS: CYANOCOBALAMIN 1,000 MCG TAB PO SCH (09:47)
[2016-09-10] MEDS: METOPROLOL TARTRATE 25 MG TAB PO SCH ×2 (09:47→21:00)
[2016-09-10] MEDS: ONDANSETRON HCL 4 MG/2 ML VIAL IV PUSH PRN (10:33)
[2016-09-10] MEDS: ACETAMINOPHEN/HYDROcodone 325 MG/5 MG TAB PO PRN ×2 (11:17→21:15)
--- NOTE | 2016-09-10 12:35 | PD.CAR.PN ---
CVT Progress Note CVT: POD #: 2 Subjective/Hospital Course: 86/ m hx of Aortic stenosis , chest pain / underwent elective cath by Dr Goyal/ found to have moderate to sever , 2 vessel CAD diagonal and LAD / EF 40% PMH: , BPH, HLP, CAD, HTN, RBBB, SVT, Wenckebach block, surgery : 09/08 AVR with a 25 Intuity tissue valve, CABG x 1, BORRERO to LAD - good + steroid intraop, 1500cc crystalloid, 1000cc cellsaver, EBL 2000 09/09 extubated after surgery, BP on labile side, HX of preop wenkebach, will dc amiodarone will need low dose TIANA when BP tolerates no pressors, weaned off insulin gtt stable for transfer to stepdown unit 09/10/16 doing well, c/o incisional pain Objective: Vital Signs Date Time Temp Pulse Resp B/P Pulse Ox O2 Delivery O2 Flow Rate FiO2 09/10/16 12:00 72 09/10/16 10:00 80 09/10/16 09:00 88 09/10/16 09:00 98.5 88 26 109/66 93 09/10/16 09:00 93 Nasal Cannula 4.00 09/10/16 08:14 92 Nasal Cannula 4.00 09/10/16 08:00 80 09/10/16 07:10 71 09/10/16 06:00 72 09/10/16 05:00 81 09/10/16 04:00 82 09/10/16 04:00 98.0 91 24 137/69 90 09/10/16 03:00 88 09/10/16 02:00 88 09/10/16 01:00 90 09/10/16 00:00 98.5 78 22 117/68 90 09/10/16 00:00 79 09/09/16 23:00 85 09/09/16 22:00 88 09/09/16 21:00 88 09/09/16 20:00 98.7 90 26 119/67 90 09/09/16 20:00 90 09/09/16 19:00 90 Nasal Cannula 4.00 09/09/16 16:00 76 09/09/16 16:00 98.9 84 18 97/85 95 Labs: Laboratory Tests Test 09/10/16 05:00 White Blood Count 14.1 TH/MM3 (4.0-11.0) Red Blood Count 3.13 MIL/MM3 (4.50-5.90) Hemoglobin 10.2 GM/DL (13.0-17.0) Hematocrit 29.6 % (39.0-51.0) Mean Corpuscular Volume 94.5 FL (80.0-100.0) Mean Corpuscular Hemoglobin 32.7 PG (27.0-34.0) Mean Corpuscular Hemoglobin 34.5 % Concent (32.0-36.0) Red Cell Distribution Width 13.4 % (11.6-17.2) Platelet Count 78 TH/MM3 (150-450) Mean Platelet Volume 9.3 FL (7.0-11.0) Neutrophils (%) (Auto) 85.3 % (16.0-70.0) Lymphocytes (%) (Auto) 6.1 % (9.0-44.0) Monocytes (%) (Auto) 8.6 % (0.0-8.0) Eosinophils (%) (Auto) 0.0 % (0.0-4.0) Basophils (%) (Auto) 0.0 % (0.0-2.0) Neutrophils # (Auto) 12.0 TH/MM3 (1.8-7.7) Lymphocytes # (Auto) 0.9 TH/MM3 (1.0-4.8) Monocytes # (Auto) 1.2 TH/MM3 (0-0.9) Eosinophils # (Auto) 0.0 TH/MM3 (0-0.4) Basophils # (Auto) 0.0 TH/MM3 (0-0.2) CBC Comment AUTO DIFF Differential Comment AUTO DIFF CONFIRMED Platelet Estimate LOW (NORMAL) Platelet Morphology Comment NORMAL (NORMAL) Sodium Level 143 MEQ/L (136-145) Potassium Level 4.7 MEQ/L (3.5-5.1) Chloride Level 108 MEQ/L (98-107) Carbon Dioxide Level 28.8 MEQ/L (21.0-32.0) Anion Gap 6 MEQ/L (5-15) Blood Urea Nitrogen 26 MG/DL (7-18) Creatinine 0.76 MG/DL (0.60-1.30) Estimat Glomerular Filtration 98 ML/MIN (>89) Rate Random Glucose 113 MG/DL (74-106) Calcium Level 8.0 MG/DL (8.5-10.1) Magnesium Level 2.6 MG/DL (1.5-2.5) Result Diagram: 09/10/16 0500 09/10/16 0500 Cardiovascular: RRR Telemetry: NSR Pulmonary: CTA GI/: NABS, NT Incision: dry and intact CT: ~350ml/12 hrs Plan: Progressing well. chest tube output too much to remove today. Encourage ambulation, PO intake. Will hold BB secondary to low BP. (1) Aortic stenosis (2) CAD (coronary artery disease) Plan: start BB in am , on statin and ASA stop amiodarone consider diuresis OOB/ pulm toileting (3) S/P AVR (aortic valve replacement) (4) AV block Plan: stop amiodarone (5) S/P CABG x 1 (6) HTN (hypertension) Plan: BP labile (7) Diastolic heart failure Plan: start TIANA when BP allows Misty Lafleur MD Sep 10, 2016 12:35
[2016-09-10] MEDS: PRAVASTATIN SOD 80 MG TAB PO SCH (21:00)
[2016-09-10] MEDS: SENNOSIDES 8.6 MG TAB PO SCH (21:00)
[2016-09-11] VITALS (28 sets, daily range): BP systolic 101–126; BP diastolic 56–69; PULSE 57–85; RESP 16–22; TEMP 97.8–99.1; O2SAT 90–97
[2016-09-11] MEDS: LEVOTHYROXINE SODIUM 25 MCG TAB PO SCH (06:00)
[2016-09-11] MEDS: PANTOPRAZOLE SOD 40 MG DELAYED RELEASE TAB PO SCH (06:14)
[2016-09-11] MEDS: INSULIN ASPART SUPPLEMENTAL SCALE SQ SCH ×4 (06:14→21:00)
[2016-09-11] MEDS: RESP: ALBUTEROL 2.5 MG/IPRATROPIUM 0.5 MG NEB (SCH) NEB (08:22)
[2016-09-11] MEDS: MUPIROCIN 2% OINT 22 GM TUBE EACH NARE SCH ×2 (08:51→21:00)
[2016-09-11] MEDS: MULTIVITAMINS/MINERALS THERAPEUTIC TAB PO SCH (08:53)
[2016-09-11] MEDS: DOCUSATE SODIUM 100 MG CAP PO SCH ×2 (08:53→21:54)
[2016-09-11] MEDS: ASPIRIN 81 MG CHEW TAB PO SCH (08:53)
[2016-09-11] MEDS: METOPROLOL TARTRATE 25 MG TAB PO SCH ×2 (08:53→21:54)
[2016-09-11] MEDS: ASCORBIC ACID 500 MG TAB PO SCH (08:53)
[2016-09-11] MEDS: MAGNESIUM HYDROXIDE SUSP 30 ML CUP PO SCH (08:54)
[2016-09-11] MEDS: POLYETHYLENE GLYCOL 17 GM PKG PO SCH (08:54)
[2016-09-11] MEDS: SODIUM CHLORIDE 0.9% FLUSH 10 ML FLUSH IV FLUSH PRN ×2 (08:54→21:56)
[2016-09-11] MEDS: ACETAMINOPHEN/HYDROcodone 325 MG/5 MG TAB PO PRN (08:58)
[2016-09-11] MEDS: CYANOCOBALAMIN 1,000 MCG TAB PO SCH (09:00)
--- NOTE | 2016-09-11 10:16 | PD.CAR.PN ---
CVT Progress Note CVT: POD #: 3 Subjective/Hospital Course: 86/ m hx of Aortic stenosis , chest pain / underwent elective cath by Dr Goyal/ found to have moderate to sever , 2 vessel CAD diagonal and LAD / EF 40% PMH: , BPH, HLP, CAD, HTN, RBBB, SVT, Wenckebach block, surgery : 09/08 AVR with a 25 Intuity tissue valve, CABG x 1, BORRERO to LAD - good + steroid intraop, 1500cc crystalloid, 1000cc cellsaver, EBL 2000 09/09 extubated after surgery, BP on labile side, HX of preop wenkebach, will dc amiodarone will need low dose TIANA when BP tolerates no pressors, weaned off insulin gtt stable for transfer to stepdown unit 09/10/16 doing well, c/o incisional pain 09/11/16 No complaints, doing well Objective: Vital Signs Date Time Temp Pulse Resp B/P Pulse Ox O2 Delivery O2 Flow Rate FiO2 09/11/16 08:28 90 Nasal Cannula 4.00 09/11/16 08:00 97.8 85 18 126/56 94 09/11/16 08:00 61 09/11/16 07:29 Nasal Cannula 4.00 09/11/16 06:00 66 09/11/16 05:00 64 09/11/16 04:00 97.9 57 20 104/69 91 09/11/16 04:00 63 09/11/16 03:00 64 09/11/16 02:00 62 09/11/16 01:00 60 09/11/16 00:00 66 09/11/16 00:00 98.9 80 22 101/58 90 09/10/16 23:00 64 09/10/16 22:00 62 09/10/16 21:00 74 09/10/16 20:44 94 Nasal Cannula 4.00 09/10/16 20:00 98.7 73 22 106/57 93 09/10/16 20:00 65 09/10/16 20:00 Nasal Cannula 4.00 09/10/16 19:00 72 09/10/16 18:00 72 09/10/16 17:00 70 09/10/16 16:00 68 09/10/16 15:00 94 Nasal Cannula 4.00 09/10/16 15:00 99.6 93 22 102/60 94 09/10/16 14:00 65 09/10/16 13:00 74 09/10/16 12:00 72 09/10/16 11:00 99.6 80 26 107/64 94 09/10/16 11:00 94 Nasal Cannula 4.00 Result Diagram: 09/10/16 0500 09/10/16 0500 Cardiovascular: IRR, Wenckebach Pulmonary: CTA GI/: NABS, NT Incision: dry and intact CT: 40ml/12 hrs Plan: Remove chest tubes Diurese encourage ambulation x 6 wean oxygen Possible d/c tomorrow. (1) Aortic stenosis (2) CAD (coronary artery disease) Plan: start BB in am , on statin and ASA stop amiodarone consider diuresis OOB/ pulm toileting (3) S/P AVR (aortic valve replacement) (4) AV block Plan: stop amiodarone (5) S/P CABG x 1 (6) HTN (hypertension) Plan: BP labile (7) Diastolic heart failure Plan: start TIANA when BP allows Misty Lafleur MD Sep 11, 2016 10:16
[2016-09-11] MEDS: FUROSEMIDE 40 MG/4 ML VIAL IV PUSH SCH (11:27)
[2016-09-11] MEDS: SENNOSIDES 8.6 MG TAB PO SCH (21:54)
[2016-09-11] MEDS: PRAVASTATIN SOD 80 MG TAB PO SCH (21:54)
[2016-09-12] VITALS (28 sets, daily range): BP systolic 101–122; BP diastolic 58–79; PULSE 63–84; RESP 16–18; TEMP 98.5–99.7; O2SAT 91–95
[2016-09-12] MEDS: INSULIN ASPART SUPPLEMENTAL SCALE SQ SCH ×4 (05:43→20:44)
[2016-09-12] MEDS: LEVOTHYROXINE SODIUM 25 MCG TAB PO SCH (06:08)
[2016-09-12] MEDS: PANTOPRAZOLE SOD 40 MG DELAYED RELEASE TAB PO SCH (06:08)
[2016-09-12] MEDS: ASPIRIN 81 MG CHEW TAB PO SCH (09:00)
[2016-09-12] MEDS: ASCORBIC ACID 500 MG TAB PO SCH (10:30)
[2016-09-12] MEDS: CYANOCOBALAMIN 1,000 MCG TAB PO SCH (10:30)
[2016-09-12] MEDS: MULTIVITAMINS/MINERALS THERAPEUTIC TAB PO SCH (10:30)
[2016-09-12] MEDS: METOPROLOL TARTRATE 25 MG TAB PO SCH ×2 (10:30→20:41)
[2016-09-12] MEDS: DOCUSATE SODIUM 100 MG CAP PO SCH ×2 (10:30→20:41)
[2016-09-12] MEDS: MAGNESIUM HYDROXIDE SUSP 30 ML CUP PO SCH (10:31)
[2016-09-12] MEDS: POLYETHYLENE GLYCOL 17 GM PKG PO SCH (10:31)
[2016-09-12] MEDS: FUROSEMIDE 40 MG/4 ML VIAL IV PUSH SCH (10:31)
[2016-09-12] MEDS ORDERED: POTASSIUM CHLORIDE 8 MEQ CONTROLLED RELEASE TAB PO ONE (11:30)
[2016-09-12] MEDS ORDERED: FUROSEMIDE 40 MG/4 ML VIAL IV PUSH ONE (11:30)
--- NOTE | 2016-09-12 11:33 | PD.CAR.PN ---
CVT Progress Note Subjective/Hospital Course: 86/ m hx of Aortic stenosis , chest pain / underwent elective cath by Dr Goyal/ found to have moderate to sever , 2 vessel CAD diagonal and LAD / EF 40% PMH: , BPH, HLP, CAD, HTN, RBBB, SVT, Wenckebach block, surgery : 09/08 AVR with a 25 Intuity tissue valve, CABG x 1, BORRERO to LAD - good + steroid intraop, 1500cc crystalloid, 1000cc cellsaver, EBL 2000 09/09 extubated after surgery, BP on labile side, HX of preop wenkebach, will dc amiodarone will need low dose TIANA when BP tolerates no pressors, weaned off insulin gtt stable for transfer to stepdown unit 09/10/16 doing well, c/o incisional pain 09/11/16 No complaints, doing well 09/12 pt still requiring 2 liters 02 lives alone, will need rehab placement continue diuresis SR with occasional arrhythmia/ 1st degree AV block Objective: GENERAL: SKIN: Warm and dry.prevena dressing to chest HEAD: Normocephalic. EYES: No scleral icterus. No injection or drainage. NECK: Supple, trachea midline. No JVD or lymphadenopathy. CARDIOVASCULAR: slightly irregular Regular rate and rhythm without murmurs, gallops, or rubs. RESPIRATORY:Bibasiliar crackles Breath sounds equal bilaterally. No accessory muscle use. GASTROINTESTINAL: Abdomen soft, non-tender, nondistended. MUSCULOSKELETAL: No cyanosis, or edema. BACK: Nontender without obvious deformity. No CVA tenderness. Vital Signs Date Time Temp Pulse Resp B/P Pulse Ox O2 Delivery O2 Flow Rate FiO2 09/12/16 10:00 74 09/12/16 09:00 74 09/12/16 08:00 74 09/12/16 07:50 95 Nasal Cannula 3.00 09/12/16 07:45 99.5 76 18 103/64 95 09/12/16 07:45 95 Nasal Cannula 4.00 09/12/16 07:00 80 09/12/16 06:00 76 09/12/16 05:00 68 09/12/16 04:17 93 Nasal Cannula 4.00 09/12/16 04:15 72 18 101/58 93 09/12/16 04:00 70 09/12/16 03:00 74 09/12/16 02:00 68 09/12/16 01:00 74 09/12/16 00:00 70 09/11/16 23:44 93 Nasal Cannula 4.00 09/11/16 23:42 98.7 66 18 102/56 93 09/11/16 23:00 76 09/11/16 22:00 76 09/11/16 21:00 74 09/11/16 20:14 92 Nasal Cannula 3.50 09/11/16 20:00 68 09/11/16 19:30 94 Nasal Cannula 4.00 09/11/16 19:30 99.1 71 18 103/59 94 09/11/16 19:00 75 09/11/16 18:00 70 09/11/16 17:00 58 09/11/16 16:00 98.4 58 16 107/56 97 09/11/16 16:00 59 09/11/16 15:00 62 09/11/16 14:00 62 09/11/16 13:00 68 09/11/16 12:00 98.6 76 16 101/60 93 09/11/16 12:00 57 Result Diagram: 09/10/16 0500 09/10/16 0500 (1) Aortic stenosis (2) CAD (coronary artery disease) Plan: BB in , on statin and ASA stop amiodarone continue diuresis OOB/ pulm toileting additional GI motility meds (3) S/P AVR (aortic valve replacement) (4) AV block Plan: stop amiodarone (5) S/P CABG x 1 (6) HTN (hypertension) Plan: BP labile (7) Diastolic heart failure Plan: start TIANA when BP allows still labile Karen Redman Sep 12, 2016 11:33
[2016-09-12] MEDS ORDERED: BISACODYL 10 MG SUPP RECTAL ONE (12:00)
--- NOTE | 2016-09-12 12:06 | RADRPT ---
EXAM DATE/TIME: 09/12/2016 11:30 [facility] COMPARISON: CHEST SINGLE AP, September 09, 2016, 4:33. INDICATIONS : Post chest tube removal. MEDICAL HISTORY : Hypertension. Aortic stenosis SURGICAL HISTORY : CABG. Cardiac catherization ENCOUNTER: Subsequent ACUITY: 1 week PAIN SCORE: 0/10 LOCATION: Bilateral chest FINDINGS: Bibasilar consolidation and probable pleural effusion are present slightly worse on the right and not changed on the left. The rest of the examination has not changed. CONCLUSION: Slight worsening of right basilar opacity and the left side has not changed. Nicole Stein MD on September 12, 2016 at 12:03 Board Certified Radiologist. This report was verified electronically.
[2016-09-12] MEDS ORDERED: DOCU1CAP39 PO (15:40)
[2016-09-12] MEDS ORDERED: METO25TA3 PO (15:40)
[2016-09-12] MEDS ORDERED: FURO1TAB60 PO (15:44)
[2016-09-12] MEDS ORDERED: POTA-163 PO (15:44)
--- NOTE | 2016-09-12 15:48 | HHI.DS ---
Discharge Summary Admission Date Sep 08, 2016 at 05:51 Discharge Date: Sep 12, 2016 Admitting Diagnosis dyspnea, aortic stenosis (1) Aortic stenosis Diagnosis: Principal (2) CAD (coronary artery disease) Diagnosis: Principal (3) Diastolic heart failure Diagnosis: Secondary (4) AV block Diagnosis: Secondary (5) HTN (hypertension) Diagnosis: Principal (6) S/P AVR (aortic valve replacement) Diagnosis: Secondary (7) S/P CABG x 1 Diagnosis: Secondary Procedures AVR with a 25 Intuity tissue valve 09/08 CABG x 1 BORRERO to LAD - good JANETTE Brief History 86/ m hx of Aortic stenosis , chest pain / underwent elective cath by Dr Goyal/ found to have moderate to sever , 2 vessel CAD diagonal and LAD / EF 40% PMH: , BPH, HLP, CAD, HTN, RBBB, SVT, Wenckebach block, surgery : 09/08 AVR with a 25 Intuity tissue valve, CABG x 1, BORRERO to LAD - good + steroid intraop, 1500cc crystalloid, 1000cc cellsaver, EBL 2000 CBC/BMP: 09/10/16 0500 09/10/16 0500 Significant Findings Laboratory Tests Test 09/10/16 05:00 White Blood Count 14.1 TH/MM3 (4.0-11.0) Red Blood Count 3.13 MIL/MM3 (4.50-5.90) Hemoglobin 10.2 GM/DL (13.0-17.0) Hematocrit 29.6 % (39.0-51.0) Platelet Count 78 TH/MM3 (150-450) Neutrophils (%) (Auto) 85.3 % (16.0-70.0) Lymphocytes (%) (Auto) 6.1 % (9.0-44.0) Monocytes (%) (Auto) 8.6 % (0.0-8.0) Neutrophils # (Auto) 12.0 TH/MM3 (1.8-7.7) Lymphocytes # (Auto) 0.9 TH/MM3 (1.0-4.8) Monocytes # (Auto) 1.2 TH/MM3 (0-0.9) Platelet Estimate LOW (NORMAL) Chloride Level 108 MEQ/L (98-107) Blood Urea Nitrogen 26 MG/DL (7-18) Random Glucose 113 MG/DL (74-106) Calcium Level 8.0 MG/DL (8.5-10.1) Magnesium Level 2.6 MG/DL (1.5-2.5) Imaging Last Impressions Chest X-Ray 09/12/16 0000 Signed Impressions: Service Date/Time: Monday, September 12, 2016 11:30 - CONCLUSION: Slight worsening of right basilar opacity and the left side has not changed. Nicole Stein MD PE at Discharge GENERAL: SKIN: Warm and dry.prevena to chest HEAD: Normocephalic. EYES: No scleral icterus. No injection or drainage. NECK: Supple, trachea midline. No JVD or lymphadenopathy. CARDIOVASCULAR: Regular rate and rhythm without murmurs, gallops, or rubs. +1 edema lower ext RESPIRATORY: Breath sounds equal bilaterally. No accessory muscle use. diminished in bases GASTROINTESTINAL: Abdomen soft, non-tender, nondistended. MUSCULOSKELETAL: No cyanosis, or edema. BACK: Nontender without obvious deformity. No CVA tenderness. Pt Condition on Discharge: Good Discharge Disposition: Discharge to SNF Discharge Instructions DIET: Follow Instructions for: Heart Healthy Diet Additional Diet Instructions: Incentive spirometry Q1 hr x 10, while awake, also use acapella device hourly whole awake Sternal Breast Bone Precautions: NO pushing or pulling, ( pt must use sternal pillow to support chest with all activities and with coughing ( takes up to 3 months breast bone to heal ) Daily incision care: ok to shower daily, no tub bath. Wash all incisions with liquid dial soap, clean wash cloth to each site, rinse and pat dry. Observe for any signs of infection, such as drainage which is dark yellow, stewart, green or foul smelling. Immediately report to the surgeon any drainage from the chest incision, or legs, and for any abnormal drainage from the chest tube sites. Notify surgeon if any temp >101.5 degrees F. When specialty dressing removed/ or if you do not have one, continue to shower daily as above, then rinse and pat incision dry and paint with betadine daily x 5 days. Allow steri strips to fall off if you have any. Avoid lotions, creams, salves, oils, etc. for the first month Please see attached forms for additional instructions regarding post Open Heart specialty wound vacuum dressings. ROMULO or Prevena , Dressing to be removed by Nursing staff on ___09/15/16____ For Dr. Lafleur patients , please obtain CBC, BMP, PA & Lat CXR in 2 weeks, results to Dr. Lafleur ( prescription will be given) ( ) (Tele: [phone]) , Valve replacement pts will need 2decho in 2 weeks with results to Dr. Lafleur . Please obtain 2 d echo at your drum maker office if possible F/U appointment: as per DC instructions: PCP in 2 weeks, CV surgeon 2 weeks, Mental Health Program Manager 3-4 weeks For any questions regarding incisions/ dressing / meds / post op care or above Symptoms, Monday -Monday 8am-5pm Heart & Vascular Surgery Office ( Dr. Erazo & Dr. Lafleur), [phone] After Hours / Nights (5pm -8am) Weekends and Holidays Please call [facility] Cardiac Intermediate Care Unit (CIC) Charge Nurse Activities you can perform: Full Weight Bearing, Shower Only-No Bath Activities to avoid: Lifting/Bending, Strenuous Activity, Driving Additional Activity Instructio: PREVENA Single Use Negative Wound Therapy System Caregiver Instruction Sheet 1. A Prevena dressing system was applied to the chest incision during surgery, to promote wound healing. It works via a suction device (negative pressure wound therapy) to remove low to moderate levels of exudate (drainage) and infectious materials. We recommend that the device stay in place for up to seven days, from day of surgery. 2. Day of Surgery__09/08/16 Day of Removal __09/15/16 3. The dressing should only be removed by a health assistant child care teacher. Please arrange removal of device to coincide with Home Health visit and or with Nursing staff at Rehab 4. If skin reddening or irritation of skin occurs, or excessive drainage, please notify the Cardiovascular Surgeons office at [phone]. 5. Light showering is permissible; however the pump should be disconnected and placed in safe location, where it will not get wet. The dressing should not be exposed to direct spray or submerged in water. No bath tub / shower only. Ensure the end of the tubing attached to the dressing is facing down so that water does not enter the top of the tube. 6. To remove Prevena dressing: press purple button to turn off device / remove the suction. Then disconnect the tubing from the pump. The fixation strips should be stretched away from the skin and the dressing lifted at one corner and peeled back until it has been fully removed. 7. After removal, it is ok to shower daily using liquid dial soap and clean wash cloth, rinse and pat dry, and leave incision open to air dry. For any concerns regarding Prevena dressing, and or wounds, please contact Calli Burns, patient navigator at [phone] or notify the Cardiovascular Surgeons office at [phone]. Follow up Referrals: Cardiology with Vern Mcdonough MD PCP Follow-up with Bret Vergara MD PCP Follow-up Surgical with Misty Lafleur MD New Orders: 2D ECHO - 2 Weeks BASIC METABOLIC PROF - 2 Weeks CBC NO DIFF - 2 Weeks X-RAY CHEST PA & LAT - 2 Weeks New Medications: Furosemide (Lasix) 40 Mg Tab 40 MG PO DAILY edema #14 Ref 0 TAB Potassium Chloride ER (Potassium Chloride ER) 20 Meq Tab 20 MEQ PO DAILY Electrolyte Replacement #14 Ref 0 TAB Docusate Sodium (Dok) 100 Mg Cap 100 MG PO BID Constipation #60 CAP Metoprolol Tartrate (Metoprolol Tartrate) 25 Mg Tab 12.5 MG PO BID Blood Pressure Management #60 Ref 2 TAB Continued Medications: Ascorbic Acid (Vitamin C) 500 Mg Tab 500 MG PO DAILY Nutritional Supplement Ref 0 TAB Aspirin (Aspirin) 81 Mg Tabdr 81 MG PO DAILY TAB Cyanocobalamin (Vitamin B-12) 1,000 Mcg Tab 1000 MCG PO DAILY Nutritional Supplement #1 Ref 0 BOTTLE Levothyroxine (Levothyroxine) 25 Mcg Tab 25 MCG PO MON, THUR Thyroid #30 Ref 0 TAB Multiple Vitamin (Multiple Vitamin) 1 Tab 1 TAB PO DAILY Nutritional Supplement Ref 0 TAB Pravastatin (Pravastatin) 80 Mg Tab 80 MG PO HS Cholesterol Management #30 Ref 0 TAB Discontinued Medications: Amlodipine (Amlodipine) 10 Mg Tab 10 MG PO DAILY Blood Pressure Management #30 Ref 0 TAB Karen Redman Sep 12, 2016 15:48
[2016-09-12] MEDS: SENNOSIDES 8.6 MG TAB PO SCH (20:42)
[2016-09-12] MEDS: PRAVASTATIN SOD 80 MG TAB PO SCH (20:42)
[2016-09-13] VITALS (21 sets, daily range): BP systolic 102–129; BP diastolic 62–71; PULSE 59–78; RESP 16–18; TEMP 98.3–98.9; O2SAT 75–94
[2016-09-13] MEDS: PANTOPRAZOLE SOD 40 MG DELAYED RELEASE TAB PO SCH (06:05)
[2016-09-13] MEDS: INSULIN ASPART SUPPLEMENTAL SCALE SQ SCH ×3 (06:05→16:47)
[2016-09-13] MEDS: LEVOTHYROXINE SODIUM 25 MCG TAB PO SCH (06:05)
[2016-09-13] MEDS: ASCORBIC ACID 500 MG TAB PO SCH (08:08)
[2016-09-13] MEDS: ASPIRIN 81 MG CHEW TAB PO SCH (08:08)
[2016-09-13] MEDS: CYANOCOBALAMIN 1,000 MCG TAB PO SCH (08:08)
[2016-09-13] MEDS: MULTIVITAMINS/MINERALS THERAPEUTIC TAB PO SCH (08:08)
[2016-09-13] MEDS: FUROSEMIDE 40 MG/4 ML VIAL IV PUSH SCH (08:09)
[2016-09-13] MEDS: DOCUSATE SODIUM 100 MG CAP PO SCH (08:09)
[2016-09-13] MEDS: METOPROLOL TARTRATE 25 MG TAB PO SCH (08:10)
[2016-09-13] MEDS: POLYETHYLENE GLYCOL 17 GM PKG PO SCH (08:10)
[2016-09-13] MEDS: MAGNESIUM HYDROXIDE SUSP 30 ML CUP PO SCH (08:10)
--- NOTE | 2016-09-13 17:59 | PD.CAR.PN ---
CVT Progress Note Subjective/Hospital Course: 86/ m hx of Aortic stenosis , chest pain / underwent elective cath by Dr Goyal/ found to have moderate to sever , 2 vessel CAD diagonal and LAD / EF 40% PMH: , BPH, HLP, CAD, HTN, RBBB, SVT, Wenckebach block, surgery : 09/08 AVR with a 25 Intuity tissue valve, CABG x 1, BORRERO to LAD - good + steroid intraop, 1500cc crystalloid, 1000cc cellsaver, EBL 2000 09/09 extubated after surgery, BP on labile side, HX of preop wenkebach, will dc amiodarone will need low dose TIANA when BP tolerates no pressors, weaned off insulin gtt stable for transfer to stepdown unit 09/10/16 doing well, c/o incisional pain 09/11/16 No complaints, doing well 09/12 pt still requiring 2 liters 02 lives alone, will need rehab placement continue diuresis SR with occasional arrhythmia/ 1st degree AV block 09/13 waiting on rehab bed, on room air , doing well Objective: GENERAL: SKIN: Warm and dry.sternal incision intact and healing well HEAD: Normocephalic. EYES: No scleral icterus. No injection or drainage. NECK: Supple, trachea midline. No JVD or lymphadenopathy. CARDIOVASCULAR: Regular rate and rhythm without murmurs, gallops, or rubs. RESPIRATORY: slightly diminsihed left lower lobe Breath sounds equal bilaterally. No accessory muscle use. GASTROINTESTINAL: Abdomen soft, non-tender, nondistended. MUSCULOSKELETAL: No cyanosis, or edema. BACK: Nontender without obvious deformity. No CVA tenderness. Vital Signs Date Time Temp Pulse Resp B/P Pulse Ox O2 Delivery O2 Flow Rate FiO2 09/13/16 16:00 98.3 64 18 129/62 92 09/13/16 16:00 93 Nasal Cannula 2.00 09/13/16 13:00 69 09/13/16 12:00 67 09/13/16 11:00 66 09/13/16 11:00 92 Room Air 09/13/16 11:00 98.9 75 16 102/65 75 09/13/16 10:14 94 21 09/13/16 10:00 64 09/13/16 09:46 74 09/13/16 08:01 68 09/13/16 07:57 94 Nasal Cannula 3.00 09/13/16 07:56 98.4 64 18 119/71 94 09/13/16 07:36 59 09/13/16 06:21 74 09/13/16 05:27 59 09/13/16 04:03 62 09/13/16 03:30 91 Nasal Cannula 3.00 09/13/16 03:30 98.8 72 18 119/66 91 09/13/16 03:14 66 09/13/16 02:13 78 09/13/16 01:02 76 09/13/16 00:06 70 09/12/16 23:15 98.6 74 18 109/67 92 09/12/16 23:15 92 Nasal Cannula 3.00 09/12/16 23:15 83 09/12/16 22:08 77 09/12/16 21:52 93 Nasal Cannula 2.00 09/12/16 21:13 63 09/12/16 20:00 68 09/12/16 19:30 91 Nasal Cannula 2.00 09/12/16 19:30 98.5 81 18 116/79 91 09/12/16 19:30 76 09/12/16 18:00 76 Result Diagram: 09/10/16 0500 09/10/16 0500 (1) Aortic stenosis (2) CAD (coronary artery disease) Plan: BB in , on statin and ASA stop amiodarone continue diuresis OOB/ pulm toileting additional GI motility meds dc to rehab (3) S/P AVR (aortic valve replacement) (4) AV block Plan: stop amiodarone (5) S/P CABG x 1 (6) HTN (hypertension) Plan: BP labile (7) Diastolic heart failure Plan: start TIANA when BP allows still labile Karen Redman Sep 13, 2016 17:59
== END 2016-09-13 21:00 | DRG 220 ==
LOC: HSDI 09-08 05:51 → HCVR 09-08 13:04 → HCIN 09-09 14:47
PROVIDERS: ADMIT Thoracic Surgery (Cardiothoracic Vascular Surgery); ATTEND Thoracic Surgery (Cardiothoracic Vascular Surgery)
PROC: B246ZZ4 Ultrasonography of Right and Left Heart, Transesophageal (ICD-10-PCS; 2016-09-08)
PROC: 5A1221Z Performance of Cardiac Output, Continuous (ICD-10-PCS; 2016-09-08)
PROC: 02RF08Z Replacement of Aortic Valve with Zooplastic Tissue, Open Approach (ICD-10-PCS; principal; 2016-09-08 08:34)
PROC: 02100Z9 Bypass Coronary Artery, One Artery from Left Internal Mammary, Open Approach (ICD-10-PCS; 2016-09-08 08:34)
DX: I35.0 Nonrheumatic aortic (valve) stenosis (principal); I50.30 Unspecified diastolic (congestive) heart failure; I11.0 Hypertensive heart disease with heart failure; I45.10 Unspecified right bundle-branch block; I47.1 Supraventricular tachycardia; I25.10 Atherosclerotic heart disease of native coronary artery without angina pectoris; E78.5 Hyperlipidemia, unspecified; N40.0 Benign prostatic hyperplasia without lower urinary tract symptoms; I44.1 Atrioventricular block, second degree; I44.30 Unspecified atrioventricular block; Z87.891 Personal history of nicotine dependence
CPT/HCPCS: 36415; 71010; 71020; 76937; 80048; 81001; 82948; 83735; 85014; 85025; 85027; 85610; 85730; 86850; 86900; 86901; 86920; 87640; 87641; 88305; 88311; 93005; 93318; 93880; 93970; 93998; 94002; 94010; 94150; 94640; 94664; 94667; 94668; C9399; J0131; J1644; J1815; J1885; J1940; J2150; J2250; J2370; J2405; J2720; J2930; J3010; J3370; J3475; J3480; J7040; J7050; J7060; J7120; P9045; P9047

== ENCOUNTER → 2016-09-06 | Outpatient (CLI) | payer OTHER ==
[~2016-09-06] MED LIST changes: +AMLO10TA2 PO; +AMLO5TAB96 PO; +ASPI1TAB69 PO; +ASPI81 PO; +ASPI81CH CHEW; +BUTA1CAP PO; +DOCU1CAP39 PO; +FURO1TAB60 PO; +LEVO.025 PO; +LEVO25TA4 PO; +METO25TA3 PO; +POTA-163 PO; +PRAV80TA PO; +PRAV80TA2 PO; +VITA100017 PO; +VITA10002 PO; +VITA250C3 CHEW; +VITA500T PO
[2016-09-06 12:23] LABS: BASOPHIL % 0.4 % (0.0-2.0); EOSINOPHIL # 0.1 TH/MM3 (0-0.4); HEMATOCRIT 43.1 % (39.0-51.0); HEMO FLAGS DIFF FINAL; LYMPH % 24.7 % (9.0-44.0); LYMPHOCYTE # 1.5 TH/MM3 (1.0-4.8); MEAN CELL VOLUME 95.1 FL (80.0-100.0); MEAN CORPUSCULAR HEMOGLOBIN 31.5 PG (27.0-34.0); MEAN CORPUSCULAR HGB CONC 33.1 % (32.0-36.0); MONO % 8.6 % (0.0-8.0); NEUT % 64.3 % (16.0-70.0); PLATELET COUNT 176 TH/MM3 (150-450); RED BLOOD COUNT 4.53 MIL/MM3 (4.50-5.90); RED CELL DISTRIBUTION WIDTH 13.2 % (11.6-17.2); WHITE BLOOD COUNT 6.3 TH/MM3 (4.0-11.0)
[2016-09-06 12:29] LABS: APTT (PATIENT) 29.2 SEC (24.3-30.1); PROTHROMBIN TIME - PATIENT 10.6 SEC (9.8-11.6)
[2016-09-06 12:45] LABS: BICARBONATE 32.9 MEQ/L (21.0-32.0); POTASSIUM 4.7 MEQ/L (3.5-5.1)
[2016-09-06 12:55] LABS: BLOOD, URINE NEG (NEG); GLUCOSE,URINE NEG (NEG); KETONE, URINE NEG (NEG); NITRITE,URINE NEG (NEG); URINE COLOR LIGHT-YELLOW (YELLW/STRAW)
[2016-09-06 13:06] LABS: COMMENT (UR) CULT NOT INDICATED; CULTURE IF INDICATED CULT NOT INDICATED
--- NOTE | 2016-09-06 14:27 | RADRPT ---
EXAM DATE/TIME: 09/06/2016 13:02 [facility] COMPARISON: No previous studies available for comparison. INDICATIONS : Pre op CABG. MEDICAL HISTORY : Hypercholesterolemia. Hypertension.Aortic stenosis SURGICAL HISTORY : TURP surgery. Heart cath. ENCOUNTER: Initial ACUITY: 1 day PAIN SCORE: 0/10 LOCATION: Bilateral legs. TECHNIQUE: Venous ultrasound of the left and right leg was performed from the inguinal ligament to the proximal calf. Real-time, color Doppler and spectral tracing, compression and augmentation techniques were us ed. FINDINGS: RIGHT LEG: There is normal compressibility of the deep venous system from the inguinal region to the proximal ca lf. No echogenic clot is seen in the lumen of the common femoral, femoral, popliteal, and posterior tibial veins. There is a normal response of the venous system to proximal and distal augmentation an d respiration. LEFT LEG: There is normal compressibility of the deep venous system from the inguinal region to the proximal ca lf. No echogenic clot is seen in the lumen of the common femoral, femoral, popliteal, and posterior tibial veins. There is a normal response of the venous system to proximal and distal augmentation an d respiration. CONCLUSION: Normal examination. Joseph De Oliveira MD on September 06, 2016 at 14:25 Board Certified Radiologist. This report was verified electronically.
--- NOTE | 2016-09-06 14:36 | RADRPT ---
EXAM DATE/TIME: 09/06/2016 13:22 [facility] COMPARISON: No previous studies available for comparison. INDICATIONS : Pre op CABG. MEDICAL HISTORY : Hypercholesterolemia. Hypertension.Aortic stenosis. SURGICAL HISTORY : TURP surgery. Heart cath. ENCOUNTER: Initial ACUITY: 1 day PAIN SCORE: 0/10 LOCATION: Bilateral Legs. GREATER SAPHENOUS VEIN THIGH: PROXIMAL: Right 4 mm Left 3 mm MID: Right 3 mm Left 3 mm DISTAL: Right 3 mm Left 3 mm CALF: PROXIMAL: Right 2 mm Left 3 mm MID: Right 2 mm Left 1 mm DISTAL: Right 1 mm Left 2 mm FINDINGS: The venous system of the lower extremities are patent by color Doppler imaging. Measurements of the leg veins (in mm) are listed above. CONCLUSION: Venous mapping as above. Mild wall thickening of the saphenous vein is identified bilaterally. Joseph De Oliveira MD on September 06, 2016 at 14:34 Board Certified Radiologist. This report was verified electronically.
--- NOTE | 2016-09-06 14:46 | RADRPT ---
EXAM DATE/TIME: 09/06/2016 14:32 [facility] COMPARISON: No previous studies available for comparison. INDICATIONS : Evaluate for pneumothorax, pneumonia or communicable disease. Preop chest for CABG MEDICAL HISTORY : Hypertension. aortic stenosis SURGICAL HISTORY : cardiac cath, TURP surgery ENCOUNTER: Initial ACUITY: 1 day PAIN SCORE: 0/10 LOCATION: Bilateral chest FINDINGS: Aorta is tortuous. Mild interstitial prominence. No evidence for consolidation or pneumothorax. Heart size upper limits normal. Degenerative changes of the spine. CONCLUSION: Mild interstitial prominence again seen. Joseph De Oliveira MD on September 06, 2016 at 14:45 Board Certified Radiologist. This report was verified electronically.
--- NOTE | 2016-09-06 14:57 | RADRPT ---
EXAM DATE/TIME: 09/06/2016 12:43 [facility] COMPARISON: No previous studies available for comparison. INDICATIONS : Pre op CABG. MEDICAL HISTORY : Hypercholesterolemia. Hypertension.Aortic stenosis. SURGICAL HISTORY : TURP surgery. Heart cath. ENCOUNTER: Initial ACUITY: 1 day PAIN SCORE: 0/10 LOCATION: Bilateral neck PEAK SYSTOLIC VELOCITIES (cm/sec): ICA/CCA RATIO: Right: 0.7 Left: 1.0 ICA: Right: 45.5 Left: 49.6 CCA: Right: 66.1 Left: 48.8 ECA: Right: 42.6 Left: 40.5 VERTEBRAL: Right: 28.4 antegrade Left: 34.8 antegrade Elevated flow velocities and ICA/CCA ratios have been found to correlate with increased degrees of vessel stenosis, calculated as percentage of diameter relative to a normal segment of distal ICA/CCA FINDINGS: RIGHT CAROTID: No significant stenosis is visualized. The waveforms are within normal limits. LEFT CAROTID: There is mild noncalcified plaque in the carotid bulb. No significant stenosis is visualized. The wa veforms are within normal limits. VERTEBRAL ARTERIES: Antegrade flow is seen in both vertebral arteries. MISCELLANEOUS: None. CONCLUSION: 1. Mild atherosclerotic disease. No significant stenosis is identified within either internal carotid artery. 2. There is antegrade flow in both vertebral arteries. Bishop Barnhart MD on September 06, 2016 at 14:55 Board Certified Radiologist. This report was verified electronically.
[2016-09-06 15:20] LABS: MRSA PCR NEGATIVE (NEGATIVE); STAPH AUREUS PCR NEGATIVE (NEGATIVE)
--- NOTE | 2016-09-23 17:13 | PD.CAR.PN ---
CVT Progress Note Subjective/Hospital Course: sts data discussed with pt3 RISK SCORES About the STS Risk Calculator Procedure: AV Replacement + CAB Risk of Mortality: 2.525% Morbidity or Mortality: 17.79% Long Length of Stay: 7.894% Short Length of Stay: 26.837% Permanent Stroke: 1.929% Prolonged Ventilation: 9.802% DSW Infection: 0.329% Renal Failure: 4.421% Reoperation: 9.087% Karen Redman Sep 23, 2016 17:13
--- NOTE | 2016-10-21 08:50 | RSPPFT ---
DATE OF PROCEDURE: 09/06/16 COMMENTS: Spirometry is within the predicted range with FVC of 3.9 predicted 3.7, FEV1 of 3.1 predicted 2.8. There is some flattening of the flow volume loop and, if clinically indicated, variable extrathoracic obstruction should be evaluated. IMPRESSION:
== END ==
LOC: CPRE 11:01
PROVIDERS: ATTEND Thoracic Surgery (Cardiothoracic Vascular Surgery)
DX: Z01.812 Encounter for preprocedural laboratory examination (principal); Z01.811 Encounter for preprocedural respiratory examination
CPT/HCPCS: 36415; 71020; 80048; 81001; 85025; 85610; 85730; 86850; 86900; 86901; 87640; 87641; 93880; 93970; 93998; 94010

== ENCOUNTER 2016-10-29 11:50 | Emergency (ER) | payer OTHER ==
[~2016-10-29] VITALS: Ht 175.3 cm; Wt 76.0 kg
[~2016-10-29 11:50] MED LIST changes: -AMLO10TA2 PO; -AMLO5TAB96 PO; -ASPI81 PO; -ASPI81CH CHEW; -BUTA1CAP PO; -LEVO.025 PO; -PRAV80TA PO; -VITA100017 PO; -VITA250C3 CHEW
[2016-10-29 11:57] VITALS: BP 131/88; PULSE 82; RESP 15; TEMP 98; O2SAT 98
[2016-10-29] MEDS ORDERED: VITA250C3 CHEW (12:11)
[2016-10-29] MEDS ORDERED: AMLO10TA2 PO (12:11)
[2016-10-29] MEDS ORDERED: ASPI81CH CHEW (12:11)
--- NOTE | 2016-10-29 12:49 | PD ---
HPI Chief Complaint: Headache Time Seen by Provider: 12:20 Travel History International Travel<30 days: No Contact w/Intl Traveler<30days: No Traveled to known affect area: No History of Present Illness HPI 86-year-old male presents to emergency department for evaluation of headache. He reports he sustained a mechanical trip and fall hitting his forehead approximately 2 weeks ago. No loss of consciousness. Not anticoagulated. He reports he's had a frontal tension type headache for the last 4 days. He has a history of such. He reports the headache onset was gradual in nature he can't specifically recall when it started. The pain is throbbing, nonradiating, intermittent, slightly improved with [id number] Motrin. He reports he came in today for evaluation of the headache because Motrin did not improve it. He denies nausea, vomiting, fever, visual changes. EMR reviewed patient was seen last year for similar complaint. PFSH Past Medical History Heart Rhythm Problems: Yes Cancer: No Cardiac Catheterization: No Cardiovascular Problems: Yes (CO, hyperlipidemia, SEVERE AORTIC STENOSIS) High Cholesterol: Yes Congestive Heart Failure: No Diabetes: No Diminished Hearing: Yes Endocrine: Yes Gastrointestinal Disorders: Yes (GERD) GERD: Yes Genitourinary: Yes (ENLARGED PROSTATE) Hepatitis: No Hiatal Hernia: No Hypertension: Yes Immune Disorder: No Musculoskeletal: No Neurologic: No Psychiatric: No Respiratory: No Immunizations Current: Yes Myocardial Infarction: No Thyroid Disease: Yes Ulcer: No ?: Not Past Surgical History Abdominal Surgery: No AICD: No Cardiac Surgery: Yes (HEART CATH) Coronary Artery Bypass Graft: No Ear Surgery: No Endocrine Surgery: No Eye Surgery: No Genitourinary Surgery: Yes (TURP) Joint Replacement: No Oral Surgery: No Pacemaker: No Thoracic Surgery: No Other Surgery: Yes Family History Family Myocardial Infarction: Yes Social History Alcohol Use: Yes (3-4 DRINKS A WEEK WINE) Tobacco Use: No (QUIT 1966) Substance Use: No Allergies-Medications (Allergen,Severity, Reaction): Coded Allergies: Penicillin (Verified Allergy, Severe, Swelling, 10/29/16) Reported Meds & Prescriptions Reported Meds & Active Scripts Active Fioricet (Isqrnoaafa-Ijpubzbfrgxfy-Lkbnxbfd) 50-300-40 Mg Cap 1 Cap PO Q4H PRN Metoprolol Tartrate 25 Mg Tab 12.5 Mg PO BID Reported Vitamin C (Ascorbic Acid) 250 Mg Chew 500 Mg CHEW DAILY Aspirin 81 Mg Chew 81 Mg CHEW DAILY Amlodipine (Amlodipine Besylate) 10 Mg Tab 10 Mg PO DAILY Vitamin C (Ascorbic Acid) 500 Mg Tab 500 Mg PO DAILY Vitamin B-12 (Cyanocobalamin) 1,000 Mcg Tab 1,000 Mcg PO DAILY Levothyroxine (Levothyroxine Sodium) 25 Mcg Tab 25 Mcg PO MON, THUR Aspirin 81 Mg Tabdr 81 Mg PO DAILY Pravastatin 80 Mg Tab 80 Mg PO HS Multiple Vitamin 1 Tab 1 Tab PO DAILY Review of Systems Except as stated in HPI: all other systems reviewed are Neg Physical Exam Narrative GENERAL: Alert, well-appearing elderly male. No acute distress. Appears comfortable. SKIN: Focused skin assessment warm/dry. HEAD: Atraumatic. Normocephalic. EYES: Pupils equal and round. No scleral icterus. No injection or drainage. No nystagmus. ENT: No nasal bleeding or discharge. Mucous membranes pink and moist. NECK: Trachea midline. No JVD. No meningismus. No cervical spine tenderness. CARDIOVASCULAR: Regular rate and rhythm. No murmur appreciated. RESPIRATORY: No accessory muscle use. Clear to auscultation. Breath sounds equal bilaterally. GASTROINTESTINAL: Abdomen soft, non-tender, nondistended. Hepatic and splenic margins not palpable. MUSCULOSKELETAL: No obvious deformities. No clubbing. No cyanosis. No edema. NEUROLOGICAL: Awake and alert. No obvious cranial nerve deficits. Motor grossly within normal limits. Normal speech. PSYCHIATRIC: Appropriate mood and affect; insight and judgment normal. Data Data Last Documented VS Vital Signs Date Time Temp Pulse Resp B/P Pulse Ox O2 Delivery O2 Flow Rate FiO2 10/29/16 11:57 98.0 82 15 131/[address] Brain W/O Iv Contrast(Rout) (10/29/16 ) Ketorolac Inj (Toradol Inj) (10/29/16 13:30) MDM Medical Decision Making Medical Screen Exam Complete: Yes Emergency Medical Condition: Yes Medical Record Reviewed: Yes Differential Diagnosis Tension Headache, subdural hematoma, migraine Narrative Course 86-year-old male presents to the emergency department for evaluation of a gradual onset headache for the last 4 days. He reports a history of headaches similar to this one. He does report that he sustained a mechanical fall hitting his forehead 2 weeks ago. There was no loss of consciousness. Patient appears well and reports the pain is actually relieved at the time of the exam. Brain CT pending. CT of the brain: No acute intracranial findings. Findings discussed with patient. Patient reports headache remains to be mild to 10 severity. He reports that he has used Fioricet for headaches in the past. Patient will be discharged home with a prescription. Patient was instructed to return to the emergency department if he developed increasing severe headache, change in vision, confusion, nausea or vomiting. He agrees to this plan Diagnosis Primary Impression: Headache Qualified Code: R51 - Nonintractable headache, unspecified chronicity pattern , unspecified headache type Referrals: Primary Care Physician Scripts Pfmizxeqna-Wqapuloczyenf-Xaekebgu (Fioricet)50-300-40 Mg Cap1 Cap PO Q4H PRN ( HEADACHE) #12 CAP Ref 0 Prov:Rosemary Rhodes 10/29/16 Disposition: 01 DISCHARGE HOME Condition: Stable Rosemary Rhodes Oct 29, 2016 12:49
--- NOTE | 2016-10-29 13:16 | RADHPO ---
EXAM DATE/TIME: 10/29/2016 12:17 [facility] COMPARISON: CT BRAIN W/O CONTRAST, June 20, 2015, 20:15. INDICATIONS : Patient has a headache that won't go away and some dizziness. RADIATION DOSE: 67.35 CTDIvol (mGy) MEDICAL HISTORY : Cardiovascular disease. Hyperlipedema, Aortic stenosis SURGICAL HISTORY : None. ENCOUNTER: Initial ACUITY: 3 days PAIN SCALE: 5/10 LOCATION: cranial TECHNIQUE: Multiple contiguous axial images were obtained of the head. Using automated exposure control and adj ustment of the mA and/or kV according to patient size, radiation dose was kept as low as reasonably a chievable to obtain optimal diagnostic quality images. FINDINGS: CEREBRUM: The ventricles are normal for age. No evidence of midline shift, mass lesion, hemorrhage or acute in farction. No extra-axial fluid collections are seen. POSTERIOR FOSSA: The cerebellum and brainstem are intact. The 4th ventricle is midline. The cerebellopontine angle i s unremarkable. EXTRACRANIAL: The visualized portion of the orbits is intact. SKULL: The calvaria is intact. No evidence of skull fracture. CONCLUSION: No acute intracranial findings. Arie Chisholm MD on October 29, 2016 at 13:13 Board Certified Radiologist. This report was verified electronically.
[2016-10-29] MEDS ORDERED: KETOROLAC TROMETHAMINE 60 MG/2 ML (IM) VIAL IM ONE (13:30)
[2016-10-29] MEDS ORDERED: BUTA1CAP PO (13:35)
== END 2016-10-29 13:43 | disposition home or self-care (01) ==
LOC: PHEFT 11:50
DX: R51 Headache (principal); E78.00 Pure hypercholesterolemia, unspecified; K21.9 Gastro-esophageal reflux disease without esophagitis; I10 Essential (primary) hypertension; N40.0 Benign prostatic hyperplasia without lower urinary tract symptoms; Z87.891 Personal history of nicotine dependence; E07.9 Disorder of thyroid, unspecified; E78.5 Hyperlipidemia, unspecified; W18.09XA Striking against other object with subsequent fall, initial encounter; Y93.9 Activity, unspecified; Y92.9 Unspecified place or not applicable; Y99.8 Other external cause status
CPT/HCPCS: 70450; 96372; 99284; J1885

== ENCOUNTER 2017-06-14 18:30 | Observation (INO) | payer OTHER ==
[~2017-06-14] VITALS: Ht 172.7 cm; Wt 75.0 kg
[~2017-06-14 18:30] MED LIST changes: +AMLO10TA2 PO; +ASPI-516 CHEW; +BUTA1CAP PO; -DOCU1CAP39 PO; -FURO1TAB60 PO; -POTA-163 PO; +VITA250C3 CHEW
[2017-06-14 18:33] VITALS: BP 188/90; PULSE 99; RESP 14; TEMP 98.4; O2SAT 96
[2017-06-14] MEDS ORDERED: SODIUM CHLORIDE 0.9% FLUSH 10 ML FLUSH IVF PRN (19:15)
[2017-06-14 20:21] LABS: AUTOMATED NEUTROPHIL # 4.2 TH/MM3 (1.8-7.7); BASOPHIL % 0.4 % (0.0-2.0); EOSINOPHIL # 0.1 TH/MM3 (0-0.4); EOSINOPHIL % 1.8 % (0.0-4.0); HEMATOCRIT 43.3 % (39.0-51.0); HEMOGLOBIN 14.7 GM/DL (13.0-17.0); LYMPH % 18.2 % (9.0-44.0); LYMPHOCYTE # 1.1 TH/MM3 (1.0-4.8); MEAN CELL VOLUME 95.2 FL (80.0-100.0); MEAN CORPUSCULAR HEMOGLOBIN 32.3 PG (27.0-34.0); MEAN CORPUSCULAR HGB CONC 33.9 % (32.0-36.0); MEAN PLATELET VOLUME 8.3 FL (7.0-11.0); MONO % 7.6 % (0.0-8.0); MONOCYTE # 0.4 TH/MM3 (0-0.9); PLATELET COUNT 178 TH/MM3 (150-450); RED BLOOD COUNT 4.55 MIL/MM3 (4.50-5.90); RED CELL DISTRIBUTION WIDTH 13.2 % (11.6-17.2); WHITE BLOOD COUNT 5.8 TH/MM3 (4.0-11.0)
[2017-06-14 20:41] LABS: PROTHROMBIN TIME - PATIENT 10.5 SEC (9.8-11.6)
[2017-06-14 20:51] LABS: ALBUMIN 3.9 GM/DL (3.4-5.0); AST (GOT) 16 U/L (15-37); BICARBONATE 27.9 MEQ/L (21.0-32.0); BLOOD UREA NITROGEN 14 MG/DL (7-18); CALCIUM 8.8 MG/DL (8.5-10.1); CHLORIDE 104 MEQ/L (98-107); CREATININE 1.12 MG/DL (0.60-1.30); GLOMERULAR FILTRATION RATE 62 ML/MIN (>89); GLUCOSE,RANDOM 102 MG/DL (74-106); MAGNESIUM 2.3 MG/DL (1.5-2.5); SODIUM (NA) 139 MEQ/L (136-145)
[2017-06-14 20:52] LABS: ALT (GPT) 19 U/L (12-78)
[2017-06-14 20:56] LABS: ALKALINE PHOSPHATASE 81 U/L (45-117); TOTAL BILIRUBIN ADULT 0.5 MG/DL (0.2-1.0); TOTAL PROTEIN 7.7 GM/DL (6.4-8.2); TROPONIN I LESS THAN 0.02 NG/ML (0.02-0.05)
--- NOTE | 2017-06-14 20:57 | RADRPT ---
EXAM DATE/TIME: 06/14/2017 20:11 [facility] COMPARISON: CHEST PA & LAT, September 06, 2016, 14:32. INDICATIONS : Chest pain on and off for several days. MEDICAL HISTORY : Cardiovascular disease. Hyperlipedema. Aortic stenosis. SURGICAL HISTORY : Aortic valve replacement. ENCOUNTER: Initial ACUITY: 4 - 6 days PAIN SCORE: 5/10 LOCATION: Bilateral chest FINDINGS: PA and lateral views of the chest demonstrate the lungs to be symmetrically aerated without evidence of mass, infiltrate or effusion. The cardiomediastinal contours are unremarkable. Prosthetic heart v alve. Median sternotomy wires. Osseous structures are intact. CONCLUSION: No acute disease. Adolfo Martínez Jr., MD on June 14, 2017 at 20:54 Board Certified Radiologist. This report was verified electronically.
[2017-06-14] MEDS ORDERED: ACETAMINOPHEN 500 MG CPLT PO PRN (21:15)
[2017-06-14] MEDS ORDERED: ONDANSETRON HCL 4 MG/2 ML VIAL IV PUSH PRN (21:15)
[2017-06-14] MEDS ORDERED: SODIUM CHLORIDE 0.9% FLUSH 10 ML FLUSH IV FLUSH PRN (21:15)
[2017-06-14] MEDS ORDERED: NITROGLYCERIN 0.4 MG SL 25 TABS/BTL SL PRN (21:15)
[2017-06-14] MEDS ORDERED: MORPHINE SULFATE 4 MG/ML INJ IV PUSH PRN (21:15)
--- NOTE | 2017-06-14 21:27 | PD ---
HPI Chief Complaint: Chest Pain Time Seen by Provider: 18:57 Travel History International Travel<30 days: No Contact w/Intl Traveler<30days: No Traveled to known affect area: No History of Present Illness HPI Patient is a 87-year-old male presenting to emergency for evaluation of chest pain. Patient states it started last night, it radiates from the right anterior chest to the left and down his left arm. Patient states the pain is intermittent and sharp in nature. Initially it started out as a 1 out of 10, it had gotten progressively worse throughout the night and he rated his pain a 4 out of 10 on arrival. The pain is not related to any activity. He denies any shortness of breath, nausea, headache, abdominal pain. He does state that he gets dizzy when he changes positions. Pain is not alleviated or exacerbated by anything. Patient is followed by Dr. Barbie Lu. [facility] Past Medical History Heart Rhythm Problems: Yes Cardiovascular Problems: Yes (CABG, HTN) High Cholesterol: Yes Diabetes: Yes Diminished Hearing: Yes Endocrine: Yes Gastrointestinal Disorders: Yes (GERD) GERD: Yes Genitourinary: Yes (ENLARGED PROSTATE) Hypertension: Yes Immunizations Current: Yes Thyroid Disease: Yes Ulcer: No Past Surgical History Abdominal Surgery: No AICD: No Cardiac Surgery: Yes (HEART CATH) Coronary Artery Bypass Graft: No Ear Surgery: No Endocrine Surgery: No Eye Surgery: No Genitourinary Surgery: Yes (TURP) Joint Replacement: No Oral Surgery: No Pacemaker: No Thoracic Surgery: No Other Surgery: Yes Social History Alcohol Use: Yes (3-4 DRINKS A WEEK WINE) Tobacco Use: No (QUIT 1966) Substance Use: No Allergies-Medications (Allergen,Severity, Reaction): Coded Allergies: penicillin G (Unverified Allergy, Severe, Swelling, 01/10/17) Reported Meds & Prescriptions Reported Meds & Active Scripts Active Fioricet (Serimjoufs-Ieekoqpgbkdji-Dnqllqhu) 50-300-40 Mg Cap 1 Cap PO Q4H PRN Metoprolol Tartrate 25 Mg Tab 12.5 Mg PO BID Reported Vitamin C (Ascorbic Acid) 250 Mg Chew 500 Mg CHEW DAILY Aspirin 81 Mg Chew 81 Mg CHEW DAILY Amlodipine (Amlodipine Besylate) 10 Mg Tab 10 Mg PO DAILY Vitamin C (Ascorbic Acid) 500 Mg Tab 500 Mg PO DAILY Vitamin B-12 (Cyanocobalamin) 1,000 Mcg Tab 1,000 Mcg PO DAILY Levothyroxine (Levothyroxine Sodium) 25 Mcg Tab 25 Mcg PO NICOLE ARCHER Aspirin 81 Mg Tabdr 81 Mg PO DAILY Pravastatin 80 Mg Tab 80 Mg PO HS Multiple Vitamin 1 Tab 1 Tab PO DAILY Review of Systems Except as stated in HPI: all other systems reviewed are Neg Cardiovascular: Positive: Chest Pain or Discomfort Respiratory: Positive: Cough Neurologic: Positive: Dizziness Physical Exam Narrative GENERAL: Well-developed, well-nourished, alert elderly [place]. Resting comfortably in no acute distress. SKIN: Warm and dry. HEAD: Atraumatic. Normocephalic. EYES: Pupils equal and round. No scleral icterus. No injection or drainage. ENT: No nasal bleeding or discharge. Mucous membranes pink and moist. NECK: Trachea midline. No JVD. CARDIOVASCULAR: Regular rate and rhythm. RESPIRATORY: No accessory muscle use. Clear to auscultation. Breath sounds equal bilaterally. GASTROINTESTINAL: Abdomen soft, non-tender, nondistended. Hepatic and splenic margins not palpable. MUSCULOSKELETAL: Extremities without clubbing, cyanosis, or edema. No obvious deformities. NEUROLOGICAL: Awake and alert. No obvious cranial nerve deficits. Motor grossly within normal limits. Five out of 5 muscle strength in the arms and legs. Normal speech. PSYCHIATRIC: Appropriate mood and affect; insight and judgment normal. Data Data Last Documented VS Vital Signs Date Time Temp Pulse Resp B/P (MAP) Pulse Ox O2 Delivery O2 Flow Rate FiO2 06/14/17 18:33 98.4 99 14 188/90 (122) 96 Orders Orders Electrocardiogram (06/14/17 18:39) Ckmb (Isoenzyme) Profile (06/14/17 18:39) Complete Blood Count With Diff (06/14/17 18:39) Magnesium (Mg) (06/14/17 18:39) Prothrombin Time / Inr (Pt) (06/14/17 18:39) Act Partial Throm Time (Ptt) (06/14/17 18:39) Troponin I (06/14/17 18:39) Chest, Pa & Lat (06/14/17 18:39) Ecg Monitoring (06/14/17 19:07) Iv Access Insert/Monitor (06/14/17 19:07) Oximetry (06/14/17 19:07) Oxygen Administration (06/14/17 19:07) Sodium Chloride 0.9% Flush (Ns Flush) (06/14/17 19:15) Comprehensive Metabolic Panel (06/14/17 19:15) Activity Bed Rest With Brp (06/14/17 21:04) Vital Signs (Adult) Q4H (06/14/17 21:04) Cardiac Rhythm .As Directed (06/14/17 21:04) Notify Dr: Other .PRN (06/14/17 21:04) Notify Dr. Parameters (06/14/17 21:04) Resp Oxygen Nasal Cannula (06/14/17 ) Diet Npo (06/15/17 Breakfast) Ckmb (Isoenzyme) Profile (06/14/17 21:04) Ckmb (Isoenzyme) Profile (06/15/17 00:04) Troponin I (06/14/17 21:04) Troponin I (06/15/17 00:04) Electrocardiogram (06/14/17 21:04) Electrocardiogram (06/15/17 00:04) ^ Obtain (06/14/17 21:04) Sodium Chloride 0.9% Flush (Ns Flush) (06/14/17 21:15) Sodium Chloride 0.9% Flush (Ns Flush) (06/15/17 09:00) Acetaminophen (Tylenol) (06/14/17 21:15) Morphine Inj (Morphine Inj) (06/14/17 21:15) Ondansetron Inj (Zofran Inj) (06/14/17 21:15) Nitroglycerin Sl (Nitrostat Sl) (06/14/17 21:15) Cardboard Inserter / Telemetry ALL.Q8H (06/14/17 21:04) Admit Order (Ed Use Only) (06/14/17 21:04) Labs Laboratory Tests Test 06/14/17 19:15 White Blood Count 5.8 TH/MM3 Red Blood Count 4.55 MIL/MM3 Hemoglobin 14.7 GM/DL Hematocrit 43.3 % Mean Corpuscular Volume 95.2 FL Mean Corpuscular Hemoglobin 32.3 PG Mean Corpuscular Hemoglobin Concent 33.9 % Red Cell Distribution Width 13.2 % Platelet Count 178 TH/MM3 Mean Platelet Volume 8.3 FL Neutrophils (%) (Auto) 72.0 % Lymphocytes (%) (Auto) 18.2 % Monocytes (%) (Auto) 7.6 % Eosinophils (%) (Auto) 1.8 % Basophils (%) (Auto) 0.4 % Neutrophils # (Auto) 4.2 TH/MM3 Lymphocytes # (Auto) 1.1 TH/MM3 Monocytes # (Auto) 0.4 TH/MM3 Eosinophils # (Auto) 0.1 TH/MM3 Basophils # (Auto) 0.0 TH/MM3 CBC Comment DIFF FINAL Differential Comment Prothrombin Time 10.5 SEC Prothromb Time International Ratio 1.0 RATIO Activated Partial Thromboplast Time 28.2 SEC Blood Urea Nitrogen 14 MG/DL Creatinine 1.12 MG/DL Random Glucose 102 MG/DL Total Protein 7.7 GM/DL Albumin 3.9 GM/DL Calcium Level 8.8 MG/DL Magnesium Level 2.3 MG/DL Alkaline Phosphatase 81 U/L Aspartate Amino Transf (AST/SGOT) 16 U/L Alanine Aminotransferase (ALT/SGPT) 19 U/L Total Bilirubin 0.5 MG/DL Sodium Level 139 MEQ/L Potassium Level 4.3 MEQ/L Chloride Level 104 MEQ/L Carbon Dioxide Level 27.9 MEQ/L Anion Gap 7 MEQ/L Estimat Glomerular Filtration Rate 62 ML/MIN Total Creatine Kinase 77 U/L Troponin I LESS THAN 0.02 NG/ML MDM Medical Decision Making Medical Screen Exam Complete: Yes Emergency Medical Condition: Yes Medical Record Reviewed: Yes Interpretation(s) Vital Signs Date Time Temp Pulse Resp B/P (MAP) Pulse Ox O2 Delivery O2 Flow Rate FiO2 06/14/17 18:33 98.4 99 14 188/90 (122) 96 Differential Diagnosis ACS vs USA vs NSTEMI VS OTHER Narrative Course Patient is a 87-year-old male presenting to the evaluation of chest pain and started approximately 24 hours prior to arrival. Patient is well-appearing, his blood pressure is slightly elevated on arrival. Labs and imaging ordered and pending. EKG shows sinus rhythm with first-degree AV block, this was reviewed by Dr. Marcano. CBC, chemistry, cardiac enzymes reviewed, no acute findings identified. Chest x -ray shows no acute disease. Patient is resting comfortably, due to patient's prior cardiac history and presenting complaint he will be placed in the chest pain Center overnight for further evaluation and management. Patient is agreeable to plan. Admit orders placed. Diagnosis Primary Impression: Chest pain Qualified Codes: R07.9 - Chest pain, unspecified Admitting Information Admitting Physician Requests: Observation Condition: Stable Nitza Funez Jun 14, 2017 21:27
[2017-06-14 21:41] VITALS: BP 134/74; PULSE 71; RESP 16; O2SAT 95
[2017-06-14 22:11] VITALS: BP 134/74
[2017-06-14] MEDS ORDERED: ALEN1TAB48 PO (22:16)
[2017-06-14 22:54] VITALS: BP 131/79; PULSE 66; RESP 18; TEMP 98; O2SAT 95
[2017-06-14 23:44] LABS: TROPONIN I 0.02 NG/ML (0.02-0.05)
[2017-06-15] VITALS: BP 135/63; PULSE 70; RESP 20; TEMP 98.2; O2SAT 94
[2017-06-15 02:41] LABS: TROPONIN I 0.02 NG/ML (0.02-0.05)
[2017-06-15 04:00] VITALS: BP 120/74; PULSE 74; RESP 20; TEMP 98.4; O2SAT 94
[2017-06-15 04:52] VITALS: PULSE 63
[2017-06-15 07:37] VITALS: PULSE 71
[2017-06-15 08:08] VITALS: BP 125/73; PULSE 75; RESP 18; TEMP 96.3; O2SAT 93
[2017-06-15] MEDS ORDERED: SODIUM CHLORIDE 0.9% FLUSH 10 ML FLUSH IV FLUSH SCH (09:00)
[2017-06-15] MEDS ORDERED: METO25TA3 PO (09:08)
--- NOTE | 2017-06-15 09:31 | HHI.HP ---
HPI Service [facility] Primary Care Physician Unknown Chief Complaint Chest pain History of Present Illness Chest pain in a patient with known CAD S/P CABG and AVR Aug 2016. Onset yesterday new pain unlike any prior. Pain is mid low chest with radiation to both upper arms in the bicipital area. The pain was episodic lasting 1-3 minutes with about twelve episodes described as sharp up to 4/10 severity. There were no precipitating or relieving factors and no associated symptoms other than one very mild episode of nausea. He is pain free now and has been since arrival in ED. "Is I had known this was going away i would've have come. " He is followed by Dr. Lu and I contacted her after evaluation to discuss this patient. Past Family Social History Allergies: Coded Allergies: penicillin G (Unverified Allergy, Severe, Swelling, 01/10/17) Past Medical History Thyroid (Dr. Vergara) Hyperlipidemia Hx GERD HTN Past Surgical History TURP (Natalie) AVR AND CABG (Ciarra) Reported Medications Reported Meds & Active Scripts Active Fioricet (Lnadtsjwar-Iprcgulflryzr-Gscchvtl) 50-300-40 Mg Cap 1 Cap PO Q4H PRN Metoprolol Tartrate 25 Mg Tab 12.5 Mg PO BID Reported Alendronate (Alendronate Sodium) 70 Mg Tab 70 Mg PO Q7D Vitamin C (Ascorbic Acid) 250 Mg Chew 500 Mg CHEW DAILY Aspirin 81 Mg Chew 81 Mg CHEW DAILY Amlodipine (Amlodipine Besylate) 10 Mg Tab 10 Mg PO DAILY Vitamin B-12 (Cyanocobalamin) 1,000 Mcg Tab 1,000 Mcg PO DAILY Levothyroxine (Levothyroxine Sodium) 25 Mcg Tab 25 Mcg PO Pravastatin 80 Mg Tab 80 Mg PO HS Multiple Vitamin 1 Tab 1 Tab PO DAILY Active Ordered Medications Current Medications Medications (Trade) Dose Ordered Sig/Mandie Route Start Time Stop Time Status Last Admin (NS Flush) 2 ml UNSCH PRN IVF 06/14/17 19:15 (NS Flush) 2 ml UNSCH PRN IV FLUSH 06/14/17 21:15 (NS Flush) 2 ml BID IV FLUSH 06/15/17 09:00 (Tylenol) 500 mg Q4H PRN PO 06/14/17 21:15 (Morphine Inj) 2 mg Q4H PRN IV PUSH 06/14/17 21:15 (Zofran Inj) 4 mg Q6H PRN IV PUSH 06/14/17 21:15 (Nitrostat Sl) 0.4 mg Q5M PRN SL 06/14/17 21:15 (Norvasc) 10 mg DAILY PO 06/15/17 09:15 UNV (Pravachol) 80 mg HS PO 06/15/17 21:00 UNV Family History Not contributory at age 87 Social History Stopped smoking '67 ETOH wine probably about 4 times a week No illicit substances Independent living and remains active. [place] with a friend several times a week. Physical Exam Vital Signs Vital Signs Date Time Temp Pulse Resp B/P (MAP) Pulse Ox O2 Delivery O2 Flow Rate FiO2 06/15/17 08:08 96.3 75 18 125/73 (90) 93 06/15/17 07:37 71 06/15/17 04:52 63 06/15/17 04:00 98.4 74 20 120/74 (89) 94 06/15/17 00:00 98.2 70 20 135/63 (87) 94 06/14/17 22:54 98.0 66 18 131/79 (96) 95 06/14/17 22:11 68 16 134/74 (94) 95 06/14/17 22:07 74 06/14/17 21:41 71 16 134/74 (94) 95 Room Air 06/14/17 18:33 98.4 99 14 188/90 (122) 96 Physical Exam WNWD white male resting comfortably in bed. Head NCAT balding with some actinic changes Eyes CHOCO EOMI mild cataracts Mouth MM moist, upper plate, no lesions, tongue midline Neck No JVD, masses nodes or bruits Chest Clear to auscultation with fine bibasilar crackles that clear mostly with coughing CV Midline sternal scar, RSR, no gallop, 2/6 systolic M radiating along aortic distribution Abd Non tender, no GR or masses Ext No CCE Neuro Cranial intact, motor equal Psych Alert oriented with good affect Laboratory Laboratory Tests Test 06/14/17 19:15 06/14/17 22:45 06/15/17 01:45 White Blood Count 5.8 Red Blood Count 4.55 Hemoglobin 14.7 Hematocrit 43.3 Mean Corpuscular Volume 95.2 Mean Corpuscular Hemoglobin 32.3 Mean Corpuscular Hemoglobin Concent 33.9 Red Cell Distribution Width 13.2 Platelet Count 178 Mean Platelet Volume 8.3 Neutrophils (%) (Auto) 72.0 Lymphocytes (%) (Auto) 18.2 Monocytes (%) (Auto) 7.6 Eosinophils (%) (Auto) 1.8 Basophils (%) (Auto) 0.4 Neutrophils # (Auto) 4.2 Lymphocytes # (Auto) 1.1 Monocytes # (Auto) 0.4 Eosinophils # (Auto) 0.1 Basophils # (Auto) 0.0 CBC Comment DIFF FINAL Differential Comment Prothrombin Time 10.5 Prothromb Time International Ratio 1.0 Activated Partial Thromboplast Time 28.2 Blood Urea Nitrogen 14 Creatinine 1.12 Random Glucose 102 Total Protein 7.7 Albumin 3.9 Calcium Level 8.8 Magnesium Level 2.3 Alkaline Phosphatase 81 Aspartate Amino Transf (AST/SGOT) 16 Alanine Aminotransferase (ALT/SGPT) 19 Total Bilirubin 0.5 Sodium Level 139 Potassium Level 4.3 Chloride Level 104 Carbon Dioxide Level 27.9 Anion Gap 7 Estimat Glomerular Filtration Rate 62 Total Creatine Kinase 77 67 58 Troponin I LESS THAN 0.02 0.02 0.02 Result Diagram: 06/14/17191406/14/171914 Imaging Unremarkable Course Remains pain free. Has RO for ACS. After discussion with Dr. Lu will obtain nuclear stress test (RBBB on resting EKG). If negative will discharge to follow as OP with Dr. Tabitha Campos VTE Risk Assessment Andres VTE Risk Assessment: No/Low Risk (score <= 1) Caprini Risk Assessment Model Point Value = 1 Point Value = 2 Point Value = 3 Point Value = 5 Age 41-60 Minor surgery BMI > 25 kg/m2 Swollen legs Varicose veins or History of unexplained or recurrent spontaneous Oral contraceptives or hormone replacement Sepsis (< 1 month) Serious lung disease, including pneumonia (< 1 month) Abnormal pulmonary function Acute myocardial infarction Congestive heart failure (< 1 month) History of inflammatory bowel disease Medical patient at bed rest Age 61-74 Arthroscopic surgery Major open surgery (> 45 min) Laparoscopic surgery (> 45 min) Malignancy Confined to bed (> 72 hours) Immobilizing plaster cast Central venous access Age >= 75 History of VTE Family history of VTE Factor V Leiden Prothrombin [id number] Lupus anticoagulant Anticardiolipin antibodies Elevated serum homocysteine Heparin-induced thrombocytopenia Other congenital or acquired thrombophilia Stroke (< 1 month) Elective arthroplasty Hip, pelvis, or leg fracture Acute spinal cord injury (< 1 month) Prophylaxis Regimen Total Risk Factor Score Risk Level Prophylaxis Regimen 0-1 Low Early ambulation 2 Moderate Order ONE of the following: *Sequential Compression Device (SCD) *Heparin 5000 units SQ BID 3-4 Higher Order ONE of the following medications: *Heparin 5000 units SQ TID *Enoxaparin/Lovenox 40 mg SQ daily (WT < 150 kg, CrCl > 30 mL/min) *Enoxaparin/Lovenox 30 mg SQ daily (WT < 150 kg, CrCl > 10-29 mL/min) *Enoxaparin/Lovenox 30 mg SQ BID (WT < 150 kg, CrCl > 30 mL/min) AND/OR *Sequential Compression Device (SCD) 5 or more Highest Order ONE of the following medications: *Heparin 5000 units SQ TID (Preferred with Epidurals) *Enoxaparin/Lovenox 40 mg SQ daily (WT < 150 kg, CrCl > 30 mL/min) *Enoxaparin/Lovenox 30 mg SQ daily (WT < 150 kg, CrCl > 10-29 mL/min) *Enoxaparin/Lovenox 30 mg SQ BID (WT < 150 kg, CrCl > 30 mL/min) AND *Sequential Compression Device (SCD) Assessment and Plan Problem List: (1) Thyroid condition ICD Codes: E07.9 - Disorder of thyroid, unspecified Status: Chronic (2) AV block, Mobitz 1 ICD Codes: I44.1 - Atrioventricular block, second degree Status: Chronic (3) Aortic stenosis ICD Codes: Q25.3 - Supravalvular aortic stenosis Status: Acute (4) CAD (coronary artery disease) ICD Codes: I25.10 - Atherosclerotic heart disease of viejas coronary artery without angina pectoris Status: Acute (5) HTN (hypertension) ICD Codes: I10 - Essential (primary) hypertension Status: Acute (6) Chest pain ICD Codes: R07.9 - Chest pain, unspecified Status: Acute (7) S/P AVR (aortic valve replacement) ICD Codes: Z95.2 - Presence of prosthetic heart valve Status: Acute (8) S/P CABG x 1 ICD Codes: Z95.1 - Presence of aortocoronary bypass graft Status: Acute Problem Qualifiers (1) Chest pain: Qualified Codes: R07.9 - Chest pain, unspecified Jarocho Lincoln MD Jun 15, 2017 09:31
[2017-06-15 10:20] VITALS: O2SAT 94
[2017-06-15] MEDS ORDERED: REGADENOSON INJ 0.4 MG/5 ML SYR ONE (11:04)
--- NOTE | 2017-06-15 12:20 | RADRPT ---
EXAM DATE/TIME: 06/15/2017 10:56 [place] COMPARISON: No previous studies available for comparison. INDICATIONS : Anterior chest pain for one day. Angina. DOSE: 25.7 mCi Tc99m Myoview at stress. 8.4 mCi Tc99m Myoview at rest. 0.4 mg Lexiscan STRESS SYMPTOMS: Chest pressure, facial flush. EJECTION FRACTION: 52% MEDICAL HISTORY : Cardiovascular disease. Hypertension. Diabetes mellitus type 2. SURGICAL HISTORY : CABG ENCOUNTER: Initial ACUITY: 1 day PAIN SCALE: 4/10 LOCATION: Midsternal chest TECHNIQUE: The patient underwent pharmacologic stress with infusion of prescribed dose. Continuous ECG tracing was monitored during stress. Gated SPECT imaging was performed after stress and conventional SPECT i maging was performed at rest. The examination was performed on a SPECT/CT scanner, both attenuation and non-corrected datasets were reviewed. FINDINGS: DISTRIBUTION: The maximum perfused segment at stress is in the anterior wall. PERFUSION STUDY: There is a summed stress score of 9. There is a moderate size fixed inferior septal wall defect with no definite reversibility. GATED STUDY: There is intact wall motion and thickening without hypokinetic or dyskinetic segments. CONCLUSION: 1. Moderate-sized fixed inferior lateral wall defect with no definite wall motion abnormality in this region. No evidence of ischemia. 2. Normal calculated ejection fraction of 52%. RISK CATEGORY: Intermediate (1-3% Annual Mortality Rate) Omar William MD on June 15, 2017 at 12:06 Board Certified Radiologist. This report was verified electronically.
--- NOTE | 2017-06-15 12:55 | EKG ---
Date Performed: 06/15/2017 Time Performed: 01:29:50 PTAGE: 87 years EKG: SINUS BRADYCARDIA WITH 2ND DEGREE AV BLOCK, MOBITZ TYPE II BORDERLINE LEFT AXIS DEVIATION R IGHT BUNDLE BRANCH BLOCK ABNORMAL ECG NO SIG CHANGE PREVIOUS TRACING : 06/14/2017 22.51 DOCTOR: Jarocho Lincoln Interpretating Date/Time 06/15/2017 12:53:54
--- NOTE | 2017-06-15 12:57 | EKG ---
Date Performed: 06/14/2017 Time Performed: 22:51:12 PTAGE: 87 years EKG: Sinus rhythm WITH 2ND DEGREE AV BLOCK, MOBITZ TYPE I (W[place]KEBACH) MARKED LEFT AXIS DEVIATION RIGHT BUNDLE BRANCH BLOCK ABNORMAL ECG NO SIG CHANGE PREVIOUS TRACING : 06/14/2017 19.02 DOCTOR: Jarocho Lincoln Interpretating Date/Time 06/15/2017 12:55:55
--- NOTE | 2017-06-15 13:00 | EKG ---
Date Performed: 06/14/2017 Time Performed: 19:02:40 PTAGE: 87 years EKG: Sinus rhythm WITH FIRST DEGREE AV BLOCK WITH MARKED RHYTHM IRREGULARITY, POSSIBLE NON-CONDUCTED PAC, SA BLOCK, AV BLOCK, OR SINUS PAUSE BORDERLINE LEFT AXIS DEVIATION RIGHT BUNDLE BRANCH BLOCK ABNORMAL ECG ANTERIOR ST DEPRESSION IS NEW PREVIOUS TRACING : 09/09/2016 04.32 DOCTOR: Jarocho Lincoln Interpretating Date/Time 06/15/2017 12:58:27
--- NOTE | 2017-06-15 13:03 | TR ---
Date Performed: 06/15/2017 Time Performed: 11:17:51 DOCTOR: Jarocho Lincoln DRUG LIST: CLINICAL HISTORY: ANGINA REASON FOR TEST: REASON FOR ENDING: OBSERVATION: CONCLUSION: Lexiscan stress test was performed under standard four minute protocol. Radionuclide was injected one minute prior to ending the test. No electrocardiographic abormalities were present to suggest ischemia. Nuclear imaging and interpretation are pending. COMMENTS:
--- NOTE | 2017-06-15 13:07 | HHI.DCPOC ---
Discharge Care Plan Diagnosis: (1) Chest pain (2) HTN (hypertension) (3) CAD (coronary artery disease) (4) S/P CABG x 1 (5) Aortic stenosis (6) S/P AVR (aortic valve replacement) (7) AV block, Mobitz 1 Goals to Promote Your Health * To prevent worsening of your condition and complications * To maintain your health at the optimal level Directions to Meet Your Goals Take your medications as prescribed Follow your dietary instruction Follow activity as directed Keep your appointments as scheduled Take your immunizations and boosters as scheduled If your symptoms worsen call your PCP, if no PCP go to Urgent Care Center or Emergency Room Smoking is Dangerous to Your Health. Avoid second hand smoke Call the 24-hour hour crisis hotline for domestic abuse at Zoltan Miles Jun 15, 2017 13:07
[2017-06-15] MEDS ORDERED: PRAVASTATIN SOD 80 MG TAB PO SCH (21:00)
== END 2017-06-15 14:19 | disposition home or self-care (01) ==
LOC: NEPC 18:30 → NEDA 21:08 → NEPHCDU 22:22
PROVIDERS: ADMIT Internal Medicine Cardiovascular Disease; ATTEND Internal Medicine Cardiovascular Disease
DX: R07.9 Chest pain, unspecified (principal); I10 Essential (primary) hypertension; I25.10 Atherosclerotic heart disease of native coronary artery without angina pectoris; I44.1 Atrioventricular block, second degree; I35.0 Nonrheumatic aortic (valve) stenosis; R42 Dizziness and giddiness; E78.00 Pure hypercholesterolemia, unspecified; E11.9 Type 2 diabetes mellitus without complications; K21.9 Gastro-esophageal reflux disease without esophagitis; N40.0 Benign prostatic hyperplasia without lower urinary tract symptoms; E07.9 Disorder of thyroid, unspecified; R11.0 Nausea; H91.90 Unspecified hearing loss, unspecified ear; Z95.1 Presence of aortocoronary bypass graft; Z95.2 Presence of prosthetic heart valve; Z87.891 Personal history of nicotine dependence
CPT/HCPCS: 71046; 78452; 80053; 82550; 83735; 84484; 85025; 85610; 85730; 93005; 93017; 99285; A9502; G0378; J2785

== ENCOUNTER 2017-07-20 10:06 | Emergency (ER) | payer OTHER ==
[~2017-07-20] VITALS: Ht 172.7 cm; Wt 80.0 kg
[~2017-07-20 10:06] MED LIST changes: +ALEN1TAB48 PO; -ASPI1TAB69 PO; -VITA500T PO
[2017-07-20 10:09] VITALS: BP 181/98; PULSE 96; RESP 18; TEMP 98.8; O2SAT 99
[2017-07-20] MEDS ORDERED: SODIUM CHLORIDE 0.9% FLUSH 10 ML FLUSH IVF PRN (10:30)
--- NOTE | 2017-07-20 10:33 | PD ---
HPI Chief Complaint: Chest Pain Time Seen by Provider: 10:21 Travel History International Travel<30 days: No Contact w/Intl Traveler<30days: No Traveled to known affect area: No History of Present Illness HPI This patient complains of chest pain. Location is left upper chest and right upper chest and also epigastrium. He is getting brief spots of pain in all 3 locations. There is like a sharp stabbing type of pain. Lasts about 3 minutes and resolves. Not exertional. Been going on for 3-4 days. He is currently pain-free. Denies fever cough or shortness of breath. He does have history of CAD and aortic valve replacement. He takes aspirin daily. he had a stress test 1 month ago which was negative for acute ischemia. Symptom severity is moderate. No alleviating factors. No exacerbating factors PFSH Past Medical History Heart Rhythm Problems: Yes Cardiac Catheterization: Yes (2016) Cardiovascular Problems: Yes (CABG (August 2016) ) High Cholesterol: Yes Congestive Heart Failure: No Diabetes: No Diminished Hearing: Yes Endocrine: Yes Gastrointestinal Disorders: Yes (GERD) GERD: Yes Genitourinary: Yes (ENLARGED PROSTATE) Hypertension: Yes Immunizations Current: Yes Thyroid Disease: Yes Ulcer: No Influenza Vaccination: Yes Past Surgical History Abdominal Surgery: No AICD: No Cardiac Surgery: Yes (OPEN HEART, AORTIC VALVE REPLACED) Coronary Artery Bypass Graft: Yes Ear Surgery: No Endocrine Surgery: No Eye Surgery: No Genitourinary Surgery: Yes (TURP) Joint Replacement: No Oral Surgery: No Pacemaker: No Thoracic Surgery: No Other Surgery: Yes (TURP) Social History Alcohol Use: No Tobacco Use: No Substance Use: No Allergies-Medications (Allergen,Severity, Reaction): Coded Allergies: penicillin G (Unverified Allergy, Severe, Swelling, 07/20/17) Reported Meds & Prescriptions Reported Meds & Active Scripts Active Reported Metoprolol Tartrate 25 Mg Tab 12.5 Mg PO HS Vitamin C (Ascorbic Acid) 250 Mg Chew 500 Mg CHEW DAILY Aspirin 81 Mg Chew 81 Mg CHEW DAILY Amlodipine (Amlodipine Besylate) 10 Mg Tab 10 Mg PO DAILY Vitamin B-12 (Cyanocobalamin) 1,000 Mcg Tab 1,000 Mcg PO DAILY Levothyroxine (Levothyroxine Sodium) 25 Mcg Tab 25 Mcg PO MON, Pravastatin 80 Mg Tab 80 Mg PO HS Multiple Vitamin 1 Tab 1 Tab PO DAILY Review of Systems General / Constitutional: No: Fever Eyes: No: Visual changes HENT: No: Headaches Cardiovascular: Positive: Chest Pain or Discomfort Respiratory: No: Shortness of Breath Gastrointestinal: No: Abdominal Pain Genitourinary: No: Dysuria Musculoskeletal: No: Pain Skin: No Rash Neurologic: No: Weakness Psychiatric: No: Depression Endocrine: No: Polydipsia Hematologic/Lymphatic: No: Easy Bruising Physical Exam Narrative GENERAL: Well-nourished, well-developed patient in no apparent distress. SKIN: Focused skin assessment reveals no rash and nodules. Skin is Warm and dry. HEAD: Atraumatic. Normocephalic. EYES: Pupils equal and round. No scleral icterus. No injection or drainage. ENT: No nasal bleeding or discharge. Mucous membranes pink and moist. NECK: Trachea midline. No JVD. CARDIOVASCULAR: Regular rate and rhythm. 2 out of 6 systolic murmur appreciated. RESPIRATORY: No accessory muscle use. Clear to auscultation. Breath sounds equal bilaterally. GASTROINTESTINAL: Abdomen soft, non-tender, nondistended. Hepatic and splenic margins not palpable. MUSCULOSKELETAL: No obvious deformities. No clubbing. No cyanosis. No edema. NEUROLOGICAL: Awake and alert. No obvious cranial nerve deficits. Motor grossly within normal limits. Normal speech. PSYCHIATRIC: Appropriate mood and affect; insight and judgment normal. Data Data Last Documented VS Vital Signs Date Time Temp Pulse Resp B/P (MAP) Pulse Ox O2 Delivery O2 Flow Rate FiO2 07/20/17 11:07 95 Room Air 07/20/17 10:09 98.8 96 18 Orders Orders Electrocardiogram (07/20/17 10:28) Basic Metabolic Panel (Bmp) (07/20/17 10:28) Ckmb (Isoenzyme) Profile (07/20/17 10:28) Complete Blood Count With Diff (07/20/17 10:28) Prothrombin Time / Inr (Pt) (07/20/17 10:28) Act Partial Throm Time (Ptt) (07/20/17 10:28) Troponin I (07/20/17 10:28) Chest, Single Ap (07/20/17 10:28) Ecg Monitoring (07/20/17 10:28) Iv Access Insert/Monitor (07/20/17 10:28) Oximetry (07/20/17 10:28) Sodium Chloride 0.9% Flush (Ns Flush) (07/20/17 10:30) Labs Laboratory Tests Test 07/20/17 11:00 White Blood Count 7.0 TH/MM3 Red Blood Count 4.56 MIL/MM3 Hemoglobin 14.9 GM/DL Hematocrit 43.0 % Mean Corpuscular Volume 94.2 FL Mean Corpuscular Hemoglobin 32.7 PG Mean Corpuscular Hemoglobin Concent 34.7 % Red Cell Distribution Width 13.2 % Platelet Count 161 TH/MM3 Mean Platelet Volume 8.4 FL Neutrophils (%) (Auto) 75.1 % Lymphocytes (%) (Auto) 17.0 % Monocytes (%) (Auto) 6.1 % Eosinophils (%) (Auto) 1.5 % Basophils (%) (Auto) 0.3 % Neutrophils # (Auto) 5.3 TH/MM3 Lymphocytes # (Auto) 1.2 TH/MM3 Monocytes # (Auto) 0.4 TH/MM3 Eosinophils # (Auto) 0.1 TH/MM3 Basophils # (Auto) 0.0 TH/MM3 CBC Comment DIFF FINAL Differential Comment Prothrombin Time 10.5 SEC Prothromb Time International Ratio 1.0 RATIO Activated Partial Thromboplast Time 26.1 SEC Blood Urea Nitrogen 10 MG/DL Creatinine 0.73 MG/DL Random Glucose 99 MG/DL Calcium Level 8.8 MG/DL Sodium Level 137 MEQ/L Potassium Level 4.1 MEQ/L Chloride Level 103 MEQ/L Carbon Dioxide Level 29.1 MEQ/L Anion Gap 5 MEQ/L Estimat Glomerular Filtration Rate 102 ML/MIN Total Creatine Kinase 65 U/L Troponin I LESS THAN 0.02 NG/ML MDM Medical Decision Making Medical Screen Exam Complete: Yes Emergency Medical Condition: Yes Medical Record Reviewed: Yes Differential Diagnosis Differential diagnosis includes NC, angina, pericarditis, pleurisy, GERD, anxiety. Narrative Course I have reviewed the patient's electronic medical record. I reviewed his chest pain center admission from last month including stress testing IV placed I reviewed the EKG which shows no ST elevation I reviewed the chest x-ray which is normal Extended cardiac monitoring shows sinus rhythm without ectopy Cardiac enzymes are normal General blood counts are normal Recheck he is doing well and is pain-free. This pain is noncardiac. 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 Med/Other Pt SpecificInfo: Other Disposition: 01 DISCHARGE HOME Condition: Stable Sunil Burks MD Jul 20, 2017 10:33
[2017-07-20 11:07] VITALS: O2SAT 95
[2017-07-20 11:16] LABS: AUTOMATED NEUTROPHIL # 5.3 TH/MM3 (1.8-7.7); BASOPHIL % 0.3 % (0.0-2.0); EOSINOPHIL # 0.1 TH/MM3 (0-0.4); EOSINOPHIL % 1.5 % (0.0-4.0); HEMOGLOBIN 14.9 GM/DL (13.0-17.0); LYMPHOCYTE # 1.2 TH/MM3 (1.0-4.8); MEAN CELL VOLUME 94.2 FL (80.0-100.0); MEAN CORPUSCULAR HEMOGLOBIN 32.7 PG (27.0-34.0); MEAN CORPUSCULAR HGB CONC 34.7 % (32.0-36.0); MEAN PLATELET VOLUME 8.4 FL (7.0-11.0); MONO % 6.1 % (0.0-8.0); MONOCYTE # 0.4 TH/MM3 (0-0.9); NEUT % 75.1 % (16.0-70.0); PLATELET COUNT 161 TH/MM3 (150-450); RED BLOOD COUNT 4.56 MIL/MM3 (4.50-5.90); RED CELL DISTRIBUTION WIDTH 13.2 % (11.6-17.2)
[2017-07-20 11:22] LABS: PROTHROMBIN TIME - PATIENT 10.5 SEC (9.8-11.6)
[2017-07-20 11:26] LABS: BICARBONATE 29.1 MEQ/L (21.0-32.0); BLOOD UREA NITROGEN 10 MG/DL (7-18); CALCIUM 8.8 MG/DL (8.5-10.1); CHLORIDE 103 MEQ/L (98-107); CREATININE 0.73 MG/DL (0.60-1.30); GLOMERULAR FILTRATION RATE 102 ML/MIN (>89); GLUCOSE,RANDOM 99 MG/DL (74-106); SODIUM (NA) 137 MEQ/L (136-145)
[2017-07-20 11:30] LABS: TROPONIN I LESS THAN 0.02 NG/ML (0.02-0.05)
--- NOTE | 2017-07-20 11:41 | RADRPT ---
EXAM DATE/TIME: 07/20/2017 10:44 [facility] COMPARISON: CHEST SINGLE AP, September 12, 2016, 11:30. INDICATIONS : Chest pain. MEDICAL HISTORY : Cardiovascular disease. Hyperlipedema. Aortic stenosis. SURGICAL HISTORY : Aortic Valve Replacement ENCOUNTER: Initial ACUITY: 1 week PAIN SCORE: 3/10 LOCATION: Bilateral chest FINDINGS: A single view of the chest demonstrates the lungs to be symmetrically aerated without evidence of mas s, infiltrate or effusion. The heart is mildly enlarged, stable from prior. Degenerative changes of the thoracic spine with right-sided paravertebral ossification. Prior median sternotomy and valve r eplacement. CONCLUSION: 1. No infiltrate seen. 2. Stable cardiomegaly. Adolfo Levine MD on July 20, 2017 at 11:38 Board Certified Radiologist. This report was verified electronically.
--- NOTE | 2017-07-21 14:04 | EKG ---
Date Performed: 07/20/2017 Time Performed: 10:53:22 PTAGE: 87 years EKG: Sinus rhythm WITH FIRST DEGREE AV BLOCK BORDERLINE LEFT AXIS DEVIATION RIGHT BUNDLE BRANCH BLOCK ABNORMAL ECG PREVIOUS TRACING : 06/15/2017 01.29 Since the prior tracing, there has been some increase in th e WI interval, but the 2:1 conduction is no longer evident. The electrocardiogram is otherwise withou t significant change, but overall there is some improvement in the AV node conduction defect. DOCTOR: Malaika Samuels Interpretating Date/Time 07/21/2017 14:02:29
== END 2017-07-20 15:43 | disposition home or self-care (01) ==
LOC: NEPC 10:06
DX: R07.89 Other chest pain (principal); I25.10 Atherosclerotic heart disease of native coronary artery without angina pectoris; I25.84 Coronary atherosclerosis due to calcified coronary lesion; E78.00 Pure hypercholesterolemia, unspecified; Z79.82 Long term (current) use of aspirin; Z95.1 Presence of aortocoronary bypass graft
CPT/HCPCS: 71045; 80048; 82550; 84484; 85025; 85610; 85730; 93005; 99285

== ENCOUNTER 2017-08-08 08:02 | Observation (INO) | payer OTHER ==
[2017-08-08] VITALS (8 sets, daily range): BP systolic 125–175; BP diastolic 70–85; PULSE 44–83; RESP 16–20; TEMP 97.5–98.1; O2SAT 95–98
[~2017-08-08] VITALS: Ht 175.3 cm; Wt 80.0 kg
[~2017-08-08 08:02] MED LIST changes: -ALEN1TAB48 PO; -BUTA1CAP PO
[2017-08-08] MEDS ORDERED: ASPIRIN 81 MG CHEW TAB PO ONE (08:45)
[2017-08-08] MEDS ORDERED: SODIUM CHLORIDE 0.9% FLUSH 10 ML FLUSH IVF PRN (08:45)
[2017-08-08 09:11] LABS: AUTOMATED NEUTROPHIL # 5.3 TH/MM3 (1.8-7.7); BASOPHIL % 0.4 % (0.0-2.0); EOSINOPHIL # 0.1 TH/MM3 (0-0.4); EOSINOPHIL % 1.2 % (0.0-4.0); HEMATOCRIT 43.9 % (39.0-51.0); HEMOGLOBIN 15.8 GM/DL (13.0-17.0); LYMPH % 14.4 % (9.0-44.0); MEAN CELL VOLUME 95.4 FL (80.0-100.0); MEAN CORPUSCULAR HEMOGLOBIN 34.3 PG (27.0-34.0); MEAN CORPUSCULAR HGB CONC 35.9 % (32.0-36.0); MEAN PLATELET VOLUME 8.3 FL (7.0-11.0); MONO % 6.7 % (0.0-8.0); MONOCYTE # 0.5 TH/MM3 (0-0.9); NEUT % 77.3 % (16.0-70.0); PLATELET COUNT 182 TH/MM3 (150-450); RED CELL DISTRIBUTION WIDTH 13.2 % (11.6-17.2); WHITE BLOOD COUNT 6.9 TH/MM3 (4.0-11.0)
[2017-08-08 09:21] LABS: PROTHROMBIN TIME - PATIENT 10.1 SEC (9.8-11.6)
[2017-08-08 09:25] LABS: ALBUMIN 4.3 GM/DL (3.4-5.0); AST (GOT) 19 U/L (15-37); BICARBONATE 29.3 MEQ/L (21.0-32.0); BLOOD UREA NITROGEN 10 MG/DL (7-18); CALCIUM 9.1 MG/DL (8.5-10.1); CHLORIDE 103 MEQ/L (98-107); CREATININE 0.83 MG/DL (0.60-1.30); GLOMERULAR FILTRATION RATE 88 ML/MIN (>89); GLUCOSE,RANDOM 74 MG/DL (74-106); SODIUM (NA) 140 MEQ/L (136-145)
[2017-08-08 09:26] LABS: ALT (GPT) 20 U/L (12-78)
[2017-08-08 09:30] LABS: ALKALINE PHOSPHATASE 77 U/L (45-117); TOTAL BILIRUBIN ADULT 0.6 MG/DL (0.2-1.0); TOTAL PROTEIN 8.1 GM/DL (6.4-8.2); TROPONIN I LESS THAN 0.02 NG/ML (0.02-0.05)
--- NOTE | 2017-08-08 09:31 | RADRPT ---
EXAM DATE/TIME: 08/08/2017 09:14 [facility] COMPARISON: No previous studies available for comparison. INDICATIONS : Chest pain on and off for 3 days. MEDICAL HISTORY : Cardiovascular disease. Hypertension. Diabetes mellitus type 2. SURGICAL HISTORY : CABG. Aortic valve replacement. ENCOUNTER: Initial ACUITY: 3 days PAIN SCORE: 7/10 LOCATION: Bilateral chest FINDINGS: No focal consolidation. There is interstitial lung disease at the bases, possibly pulmonary fibrosis. This would be better evaluated with chest CT. Postoperative median sternotomy and aortic valve repla cement. No effusion. No pneumothorax. CONCLUSION: 1. Interstitial lung disease at the bases. Findings may represent pulmonary fibrosis. This would be b warren evaluated with chest CT. 2. Postoperative median sternotomy and aortic valve replacement. No consolidation or effusion. Fermin Goyal MD on August 08, 2017 at 9:28 Board Certified Radiologist. This report was verified electronically.
--- NOTE | 2017-08-08 10:31 | RADRPT ---
EXAM DATE/TIME: 08/08/2017 10:06 [facility] COMPARISON: CHEST PA & LAT, August 08, 2017, 9:14. INDICATIONS : Anterior upper chest pressure. RADIATION DOSE: 9.39 CTDIvol (mGy) MEDICAL HISTORY : Hypertension. SURGICAL HISTORY : CABG Transurethral resection of the prostate. ENCOUNTER: Initial ACUITY: 1 day PAIN SCALE: 4/10 LOCATION: Bilateral upper chest TECHNIQUE: Volumetric scanning of the chest was performed. Using automated exposure control and adjustment of t he mA and/or kV according to patient size, radiation dose was kept as low as reasonably achievable to obtain optimal diagnostic quality images. DICOM format image data is available electronically for r eview and comparison. Follow-up recommendations for detected pulmonary nodules are based at a minimum on nodule size and pa tient risk factors according to Fleischner Society Guidelines. FINDINGS: LUNGS: There is an 8mm indeterminate nodule within the right middle lobe and a second smaller 5 mm indetermi dalila nodule within the right middle lobe. Diffuse increased interstitial markings predominantly withi n the lower lobes are noted consistent with. acute and/or chronic interstitial disease. Biapical pleu ral thickening and scarring is noted. PLEURAE: There is no pleural thickening or pleural effusion. MEDIASTINUM: The heart and great vessels demonstrate no acute abnormality. There is no mediastinal or hilar lymph adenopathy. Cardiomegaly and coronary artery calcifications are noted. Aortic valve replacement is no kamaljit. AXILLAE: Within normal limits. No lymphadenopathy. MUSCULOSKELETAL: Degenerative changes and scoliosis of the thoracolumbar spine are noted. MISCELLANEOUS: The visualized upper abdominal organs demonstrate no acute abnormality. CONCLUSION: 1. 8 mm noncalcified nodule within the right middle lobe and fibroma noncalcified nodule within the r ight middle lobe. 2. Cardiomegaly and coronary artery calcifications. 3. Diffusely increased interstitial markings predominantly within the lower lobes consistent with acu te and/or chronic interstitial disease. 4. Biapical pleural thickening and scarring. 5. Degenerative changes and scoliosis of the thoracolumbar spine. The findings described above include a newly detected solid pulmonary nodule of 6-8 mm average diamet er. Guidelines from the Fleischner Society for the follow-up and management of newly detected indeter minate pulmonary nodules in persons >34 years old depend on nodule size (average of length and width) and underlying risk factors (including smoking and other risk factors). Please consider the followi ng recommendations after clinical assessment of risk factors. For 6-8 mm nodules: In low risk patien ts, initial follow-up CT at 6-12 months, then 18-24 months if no change. In high risk patients, init ial follow-up CT at 3-6 months, then 9-12 and 24 months if no change. Demond Cat MD on August 08, 2017 at 10:19 Board Certified Radiologist. This report was verified electronically.
--- NOTE | 2017-08-08 11:36 | PD ---
HPI Chief Complaint: Chest Pain Time Seen by Provider: 08:25 Travel History International Travel<30 days: No Contact w/Intl Traveler<30days: No Traveled to known affect area: No History of Present Illness HPI Patient is a 87 year old male who comes in complaining of chest pain. He says it started this morning and felt like a pressure in his chest. He says it last a few hours. He has been here multiple times in the past few months with the same thing. He has history of CABG and aortic valve replacement in the past. He has not followed up with his car bracer after each visit for his chest pain. He denies difficulty breathing. He denies nausea or vomiting. He denies cough or cold. Severity is mild to moderate. PFSH Past Medical History Heart Rhythm Problems: Yes Cancer: No Cardiac Catheterization: Yes (2016) Cardiovascular Problems: Yes High Cholesterol: Yes Congestive Heart Failure: No Diabetes: No Diminished Hearing: Yes Endocrine: Yes Gastrointestinal Disorders: Yes (GERD) GERD: Yes Genitourinary: Yes (ENLARGED PROSTATE) Hepatitis: No Hiatal Hernia: No Heparin Induced Thrombocytopen: No Hypertension: Yes Immune Disorder: No Medical other: No Musculoskeletal: No Neurologic: No Psychiatric: No Respiratory: No Immunizations Current: Yes Myocardial Infarction: No Thyroid Disease: Yes Ulcer: No Past Surgical History Abdominal Surgery: No AICD: No Cardiac Surgery: Yes (OPEN HEART, AORTIC VALVE REPLACED) Coronary Artery Bypass Graft: Yes Ear Surgery: No Endocrine Surgery: No Eye Surgery: No Genitourinary Surgery: Yes (TURP) Joint Replacement: No Neurologic Surgery: No Oral Surgery: No Pacemaker: No Thoracic Surgery: No Other Surgery: Yes (TURP) Family History Family Myocardial Infarction: Yes (Grandfather, father, mother ) Social History Alcohol Use: No Tobacco Use: No Substance Use: No Allergies-Medications (Allergen,Severity, Reaction): Coded Allergies: penicillin G (Unverified Allergy, Severe, Swelling, 07/20/17) Reported Meds & Prescriptions Reported Meds & Active Scripts Active Reported Metoprolol Tartrate 25 Mg Tab 12.5 Mg PO HS Vitamin C (Ascorbic Acid) 250 Mg Chew 500 Mg CHEW DAILY Aspirin 81 Mg Chew 81 Mg CHEW DAILY Amlodipine (Amlodipine Besylate) 10 Mg Tab 10 Mg PO DAILY Vitamin B-12 (Cyanocobalamin) 1,000 Mcg Tab 1,000 Mcg PO DAILY Levothyroxine (Levothyroxine Sodium) 25 Mcg Tab 25 Mcg PO NICOLE ARCHER Pravastatin 80 Mg Tab 80 Mg PO HS Multiple Vitamin 1 Tab 1 Tab PO DAILY Review of Systems Except as stated in HPI: all other systems reviewed are Neg General / Constitutional: No: Fever, Chills HENT: No: Headaches, Lightheadedness Cardiovascular: Positive: Chest Pain or Discomfort Respiratory: No: Shortness of Breath Gastrointestinal: No: Nausea, Vomiting Musculoskeletal: Positive: Edema, No: Myalgias Skin: No Rash, No Change in Pigmentation Neurologic: No: Weakness, Dizziness Physical Exam Narrative GENERAL: Awake and alert, in no acute distress. SKIN: Focused skin assessment warm/dry. No wounds or signs of infection. HEAD: Atraumatic. Normocephalic. EYES: Pupils equal and round. No scleral icterus. ENT: Mucous membranes pink and moist. NECK: Trachea midline. No JVD. CARDIOVASCULAR: Regular rate and rhythm. No murmur appreciated. RESPIRATORY: No accessory muscle use. Crackles at both lung bases. Breath sounds equal bilaterally. GASTROINTESTINAL: Abdomen soft, non-tender, nondistended. MUSCULOSKELETAL: No obvious deformities. No clubbing. No cyanosis. No edema. NEUROLOGICAL: Awake and alert. No obvious cranial nerve deficits. Motor grossly within normal limits. Normal speech. PSYCHIATRIC: Appropriate mood and affect; insight and judgment normal. Data Data Last Documented VS Vital Signs Date Time Temp Pulse Resp B/P (MAP) Pulse Ox O2 Delivery O2 Flow Rate FiO2 08/08/17 10:58 44 17 137/70 (92) 98 Room Air 08/08/17 08:16 97.5 Orders Orders Electrocardiogram (08/08/17 ) B-Type Natriuretic Peptide (08/08/17 08:43) Complete Blood Count With Diff (08/08/17 08:43) Comprehensive Metabolic Panel (08/08/17 08:43) Prothrombin Time / Inr (Pt) (08/08/17 08:43) Act Partial Throm Time (Ptt) (08/08/17 08:43) Troponin I (08/08/17 08:43) Ecg Monitoring (08/08/17 08:43) Bilateral Bp Monitoring (08/08/17 08:43) Iv Access Insert/Monitor (08/08/17 08:43) Oximetry (08/08/17 08:43) Oxygen Administration (08/08/17 08:43) Aspirin Chew (Aspirin Chew) (08/08/17 08:45) Sodium Chloride 0.9% Flush (Ns Flush) (08/08/17 08:45) Chest, Pa & Lat (08/08/17 08:43) Ct Thorax/ Chest Wo Iv Contras (08/08/17 ) (Hub Use Only)Inp Phy Cons/Ref (08/08/17 ) Place In Observation (08/08/17 ) Code Status (08/08/17 11:47) Vital Signs (Adult) Q4H (08/08/17 11:47) Activity Oob Ad Natasha (08/08/17 11:47) 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 / Telemetry .CONTINUOUS (08/08/17 11:47) Intake + Output ALL.QSHIFT (08/08/17 11:47) Notify Dr: Other (08/08/17 11:47) Diet Npo (08/08/17 Lunch) Sodium Chlor 0.9% 1000 Ml Inj (Ns 1000 M (08/08/17 11:47) Sodium Chloride 0.9% Flush (Ns Flush) (08/08/17 12:00) Sodium Chloride 0.9% Flush (Ns Flush) (08/08/17 21:00) Acetaminophen (Tylenol) (08/08/17 13:15) Ondansetron Inj (Zofran Inj) (08/08/17 13:15) Basic Metabolic Panel (Bmp) (08/09/17 06:00) Complete Blood Count With Diff (08/09/17 06:00) Creatine Kinase (Cpk) (08/08/17 11:47) Creatine Kinase (Cpk) (08/08/17 17:47) Troponin I (08/08/17 11:47) Troponin I (08/08/17 17:47) Prothrombin Time / Inr (Pt) (08/09/17 06:00) Urinalysis - C+S If Indicated (08/08/17 11:47) Resp Oxygen Jose Manuel C Titrat 1-4 L (08/08/17 ) Pt Request For Service (08/08/17 11:47) Case Management Consult (08/08/17 11:47) Scd Bilateral/Knee High ALL.BID (08/08/17 11:47) Naloxone Inj (Narcan Inj) (08/08/17 12:00) Sennosides (Senokot) (08/08/17 13:15) Bisacodyl Supp (Dulcolax Supp) (08/08/17 13:00) Lactulose Liq (Lactulose Liq) (08/08/17 13:00) Echo 2d Comp With Doppler (08/08/17 ) Amlodipine (Norvasc) (08/09/17 09:00) Aspirin Chew (Aspirin Chew) (08/09/17 09:00) Cyanocobalamin (Vitamin B12) (08/09/17 09:00) Levothyroxine (Synthroid) (08/09/17 06:00) Metoprolol Tartrate (Lopressor) (08/08/17 21:00) Pravastatin (Pravachol) (08/08/17 21:00) Ascorbic Acid (Vitamin C) (08/09/17 09:00) Admit Order (Ed Use Only) (08/08/17 ) Labs Laboratory Tests Test 08/08/17 08:30 White Blood Count 6.9 TH/MM3 Red Blood Count 4.60 MIL/MM3 Hemoglobin 15.8 GM/DL Hematocrit 43.9 % Mean Corpuscular Volume 95.4 FL Mean Corpuscular Hemoglobin 34.3 PG Mean Corpuscular Hemoglobin Concent 35.9 % Red Cell Distribution Width 13.2 % Platelet Count 182 TH/MM3 Mean Platelet Volume 8.3 FL Neutrophils (%) (Auto) 77.3 % Lymphocytes (%) (Auto) 14.4 % Monocytes (%) (Auto) 6.7 % Eosinophils (%) (Auto) 1.2 % Basophils (%) (Auto) 0.4 % Neutrophils # (Auto) 5.3 TH/MM3 Lymphocytes # (Auto) 1.0 TH/MM3 Monocytes # (Auto) 0.5 TH/MM3 Eosinophils # (Auto) 0.1 TH/MM3 Basophils # (Auto) 0.0 TH/MM3 CBC Comment AUTO DIFF Differential Comment AUTO DIFF CONFIRMED Prothrombin Time 10.1 SEC Prothromb Time International Ratio 1.0 RATIO Activated Partial Thromboplast Time 27.0 SEC Blood Urea Nitrogen 10 MG/DL Creatinine 0.83 MG/DL Random Glucose 74 MG/DL Total Protein 8.1 GM/DL Albumin 4.3 GM/DL Calcium Level 9.1 MG/DL Alkaline Phosphatase 77 U/L Aspartate Amino Transf (AST/SGOT) 19 U/L Alanine Aminotransferase (ALT/SGPT) 20 U/L Total Bilirubin 0.6 MG/DL Sodium Level 140 MEQ/L Potassium Level 4.3 MEQ/L Chloride Level 103 MEQ/L Carbon Dioxide Level 29.3 MEQ/L Anion Gap 8 MEQ/L Estimat Glomerular Filtration Rate 88 ML/MIN Troponin I LESS THAN 0.02 NG/ML B-Type Natriuretic Peptide 109 PG/ML MDM Medical Decision Making Medical Screen Exam Complete: Yes Emergency Medical Condition: Yes Medical Record Reviewed: Yes Interpretation(s) ECG shows RBBB, ST depression in V2 and V3, unchanged from previous. Differential Diagnosis ACS vs NSTEMI vs STEMI vs CHF Narrative Course Patient is a 87 year old male who comes in complaining of chest pain. Exam shows crackles at both lung bases and bilateral lower extremity edema. IV established, labs sent. Given Aspirin. Troponin is negative. Last 24 hours Impressions Chest X-Ray 08/08/17 0843 Signed Impressions: Service Date/Time: Tuesday, August 08, 2017 09:14 - CONCLUSION: 1. Interstitial lung disease at the bases. Findings may represent pulmonary fibrosis. This would be better evaluated with chest CT. 2. Postoperative median sternotomy and aortic valve replacement. No consolidation or effusion. Fermin Goyal MD Chest CT 08/08/17 0000 Signed Impressions: Service Date/Time: Tuesday, August 08, 2017 10:06 - CONCLUSION: 1. 8 mm noncalcified nodule within the right middle lobe and fibroma noncalcified nodule within the right middle lobe. 2. Cardiomegaly and coronary artery calcifications. 3. Diffusely increased interstitial markings predominantly within the lower lobes consistent with acute and/or chronic interstitial disease. 4. Biapical pleural thickening and scarring. 5. Degenerative changes and scoliosis of the thoracolumbar spine. The findings described above include a newly detected solid pulmonary nodule of 6-8 mm average diameter. Guidelines from the Fleischner Society for the follow-up and management of newly detected indeterminate pulmonary nodules in persons >34 years old depend on nodule size (average of length and width) and underlying risk factors (including smoking and other risk factors). Please consider the following recommendations after clinical assessment of risk factors. For 6-8 mm nodules: In low risk patients , initial follow-up CT at 6-12 months, then 18-24 months if no change. In high risk patients, initial follow-up CT at 3-6 months, then 9-12 and 24 months if no change. Demond Cat MD I spoke with Dr. Lu who suggests patient be admitted for cardiac cath due to continued chest pain. He will be admitted to medicine. Diagnosis Primary Impression: CAD (coronary artery disease) Qualified Codes: I25.119 - Atherosclerotic heart disease of [place] coronary artery with unspecified angina pectoris Additional Impression: Chest pain Qualified Codes: R07.9 - Chest pain, unspecified Admitting Information Admitting Physician Requests: it Jacki Adhikari MD Aug 08, 2017 11:36
--- NOTE | 2017-08-08 11:51 | HHI.HP ---
HPI Service [facility] Primary Care Physician Marquita Alonso MD Admission Diagnosis Diagnoses: Chief Complaint: Chest pain Travel History International Travel<30 Days: No Contact w/Intl Traveler <30 Da: No Traveled to Known Affected Are: No History of Present Illness This is a pleasant 87 y/o male who complaint of Chest pain, that started early in am today, as an Oppressive sensation, he has multiple evaluations in ER due to the same complaint, He has history of CABG and aortic valve replacement in the past. He has not followed up with his template fitter after each visit for his chest pain. He denies difficulty breathing. He denies nausea or vomiting. He denies cough or cold. Severity is mild to moderate. as per patient he states he is having this precordial pain for months as intermittent pain, oppressive in nature and sometimes on epigastric area. does not worsens with activity. lasts for some minutes, 6/10 in intensity Review of Systems Constitutional: DENIES: Fever, Chills, Change in appetite Endocrine: DENIES: Heat/cold intolerance Eyes: DENIES: Blurred vision, Eye pain Cardiovascular: COMPLAINS OF: Chest pain Except as stated in HPI: all other systems reviewed are Neg Past Family Social History Past Medical History CAD status post Cardiac cath 2016 Hyperlipidemia GERD BPH Hypertension Hypothyroidism. Past Surgical History CABG Aortic Valve replacement CABG TURP Reported Medications Reported Meds & Active Scripts Active Reported Metoprolol Tartrate 25 Mg Tab 12.5 Mg PO HS Vitamin C (Ascorbic Acid) 250 Mg Chew 500 Mg CHEW DAILY Aspirin 81 Mg Chew 81 Mg CHEW DAILY Amlodipine (Amlodipine Besylate) 10 Mg Tab 10 Mg PO DAILY Vitamin B-12 (Cyanocobalamin) 1,000 Mcg Tab 1,000 Mcg PO DAILY Levothyroxine (Levothyroxine Sodium) 25 Mcg Tab 25 Mcg PO MON, Pravastatin 80 Mg Tab 80 Mg PO HS Multiple Vitamin 1 Tab 1 Tab PO DAILY Allergies: Coded Allergies: penicillin G (Unverified Allergy, Severe, Swelling, 07/20/17) Active Ordered Medications Current Medications Medications (Trade) Dose Ordered Sig/Mandie Route Start Time Stop Time Status Last Admin (NS Flush) 2 ml UNSCH PRN IVF 08/08/17 08:45 Sodium Chloride 1,000 ml @ 83 mls/hr Q12H3M IV 08/08/17 11:47 08/08/17 13:18 (NS Flush) 2 ml UNSCH PRN IV FLUSH 08/08/17 12:00 (NS Flush) 2 ml BID IV FLUSH 08/08/17 21:00 (Tylenol) 650 mg Q4H PRN PO 08/08/17 13:15 (Zofran Inj) 4 mg Q6H PRN IVP 08/08/17 13:15 (Narcan Inj) 0.4 mg UNSCH PRN IV PUSH 08/08/17 12:00 (Senokot) 17.2 mg Q12HR PRN PO 08/08/17 13:15 (Dulcolax Supp) 10 mg DAILY PRN RECTAL 08/08/17 13:00 (Lactulose Liq) 30 ml DAILY PRN PO 08/08/17 13:00 (Norvasc) 10 mg DAILY PO 08/09/17 09:00 (Aspirin Chew) 81 mg DAILY CHEW 08/09/17 09:00 (Vitamin B12) 1,000 mcg DAILY PO 08/09/17 09:00 (Synthroid) 25 mcg DAILY@0600 PO 08/09/17 06:00 (Lopressor) 12.5 mg HS PO 08/08/17 21:00 (Pravachol) 80 mg HS PO 08/08/17 21:00 (Vitamin C) 500 mg DAILY PO 08/09/17 09:00 (Pill Splitter) 1 ea UNSCH PRN OTHER 08/08/17 13:15 Family History Mother with CAD Social History Denies any toxic habits. Physical Exam Vital Signs Vital Signs Date Time Temp Pulse Resp B/P (MAP) Pulse Ox O2 Delivery O2 Flow Rate FiO2 08/08/17 10:58 44 17 137/70 (92) 98 Room Air 08/08/17 09:00 96 Room Air 08/08/17 09:00 96 Room Air 08/08/17 08:16 97.5 83 16 156/77 (103) 97 Physical Exam GENERAL: Awake and alert, in no acute distress. SKIN: Focused skin assessment warm/dry. No wounds or signs of infection. HEAD: Atraumatic. Normocephalic. EYES: Pupils equal and round. No scleral icterus. ENT: Mucous membranes pink and moist. NECK: Trachea midline. No JVD. CARDIOVASCULAR: Regular rate and rhythm. No murmur appreciated. RESPIRATORY: No accessory muscle use. Crackles at both lung bases. Breath sounds equal bilaterally. GASTROINTESTINAL: Abdomen soft, non-tender, nondistended. MUSCULOSKELETAL: No obvious deformities. No clubbing. No cyanosis. No edema. NEUROLOGICAL: Awake and alert. No obvious cranial nerve deficits. Motor grossly within normal limits. Normal speech. PSYCHIATRIC: Appropriate mood and affect; insight and judgment normal. Laboratory Laboratory Tests Test 08/08/17 08:30 White Blood Count 6.9 Red Blood Count 4.60 Hemoglobin 15.8 Hematocrit 43.9 Mean Corpuscular Volume 95.4 Mean Corpuscular Hemoglobin 34.3 Mean Corpuscular Hemoglobin Concent 35.9 Red Cell Distribution Width 13.2 Platelet Count 182 Mean Platelet Volume 8.3 Neutrophils (%) (Auto) 77.3 Lymphocytes (%) (Auto) 14.4 Monocytes (%) (Auto) 6.7 Eosinophils (%) (Auto) 1.2 Basophils (%) (Auto) 0.4 Neutrophils # (Auto) 5.3 Lymphocytes # (Auto) 1.0 Monocytes # (Auto) 0.5 Eosinophils # (Auto) 0.1 Basophils # (Auto) 0.0 CBC Comment AUTO DIFF Differential Comment AUTO DIFF CONFIRMED Prothrombin Time 10.1 Prothromb Time International Ratio 1.0 Activated Partial Thromboplast Time 27.0 Blood Urea Nitrogen 10 Creatinine 0.83 Random Glucose 74 Total Protein 8.1 Albumin 4.3 Calcium Level 9.1 Alkaline Phosphatase 77 Aspartate Amino Transf (AST/SGOT) 19 Alanine Aminotransferase (ALT/SGPT) 20 Total Bilirubin 0.6 Sodium Level 140 Potassium Level 4.3 Chloride Level 103 Carbon Dioxide Level 29.3 Anion Gap 8 Estimat Glomerular Filtration Rate 88 Troponin I LESS THAN 0.02 B-Type Natriuretic Peptide 109 Result Diagram: 08/08/1782908/08/17829 Imaging Last Impressions Chest X-Ray 08/08/17 0843 Signed Impressions: Service Date/Time: Tuesday, August 08, 2017 09:14 - CONCLUSION: 1. Interstitial lung disease at the bases. Findings may represent pulmonary fibrosis. This would be better evaluated with chest CT. 2. Postoperative median sternotomy and aortic valve replacement. No consolidation or effusion. Fermin Goyal MD Chest CT 08/08/17 0000 Signed Impressions: Service Date/Time: Tuesday, August 08, 2017 10:06 - CONCLUSION: 1. 8 mm noncalcified nodule within the right middle lobe and fibroma noncalcified nodule within the right middle lobe. 2. Cardiomegaly and coronary artery calcifications. 3. Diffusely increased interstitial markings predominantly within the lower lobes consistent with acute and/or chronic interstitial disease. 4. Biapical pleural thickening and scarring. 5. Degenerative changes and scoliosis of the thoracolumbar spine. The findings described above include a newly detected solid pulmonary nodule of 6-8 mm average diameter. Guidelines from the Fleischner Society for the follow-up and management of newly detected indeterminate pulmonary nodules in persons >34 years old depend on nodule size (average of length and width) and underlying risk factors (including smoking and other risk factors). Please consider the following recommendations after clinical assessment of risk factors. For 6-8 mm nodules: In low risk patients , initial follow-up CT at 6-12 months, then 18-24 months if no change. In high risk patients, initial follow-up CT at 3-6 months, then 9-12 and 24 months if no change. Demond Cat MD Caprini VTE Risk Assessment Caprini VTE Risk Assessment: Mod/High Risk (score >= 2) Caprini Risk Assessment Model Point Value = 1 Point Value = 2 Point Value = 3 Point Value = 5 Age 41-60 Minor surgery BMI > 25 kg/m2 Swollen legs Varicose veins or History of unexplained or recurrent spontaneous Oral contraceptives or hormone replacement Sepsis (< 1 month) Serious lung disease, including pneumonia (< 1 month) Abnormal pulmonary function Acute myocardial infarction Congestive heart failure (< 1 month) History of inflammatory bowel disease Medical patient at bed rest Age 61-74 Arthroscopic surgery Major open surgery (> 45 min) Laparoscopic surgery (> 45 min) Malignancy Confined to bed (> 72 hours) Immobilizing plaster cast Central venous access Age >= 75 History of VTE Family history of VTE Factor V Leiden Prothrombin 50630B Lupus anticoagulant Anticardiolipin antibodies Elevated serum homocysteine Heparin-induced thrombocytopenia Other congenital or acquired thrombophilia Stroke (< 1 month) Elective arthroplasty Hip, pelvis, or leg fracture Acute spinal cord injury (< 1 month) Prophylaxis Regimen Total Risk Factor Score Risk Level Prophylaxis Regimen 0-1 Low Early ambulation 2 Moderate Order ONE of the following: *Sequential Compression Device (SCD) *Heparin 5000 units SQ BID 3-4 Higher Order ONE of the following medications: *Heparin 5000 units SQ TID *Enoxaparin/Lovenox 40 mg SQ daily (WT < 150 kg, CrCl > 30 mL/min) *Enoxaparin/Lovenox 30 mg SQ daily (WT < 150 kg, CrCl > 10-29 mL/min) *Enoxaparin/Lovenox 30 mg SQ BID (WT < 150 kg, CrCl > 30 mL/min) AND/OR *Sequential Compression Device (SCD) 5 or more Highest Order ONE of the following medications: *Heparin 5000 units SQ TID (Preferred with Epidurals) *Enoxaparin/Lovenox 40 mg SQ daily (WT < 150 kg, CrCl > 30 mL/min) *Enoxaparin/Lovenox 30 mg SQ daily (WT < 150 kg, CrCl > 10-29 mL/min) *Enoxaparin/Lovenox 30 mg SQ BID (WT < 150 kg, CrCl > 30 mL/min) AND *Sequential Compression Device (SCD) Assessment and Plan Assessment and Plan 1. Unstable angina in a patient with CAD status post Cardiac Catheterization in 2017, he also had CABG and Aortic Valve replacement, at this time hospitalized, continue Cardiac enzymes, Cardiac monitoring, Aspirin given, Oxygen as needed, Morphine for pain, following outbound sales specialist who will perform Cardiac Catheterization due to multiple ER visits with the same complaint. Cardiac enzymes negative. 2. CAD status post Cardiac Catheterization 2017, CABG, on [facility]IC[facility] RBBB, ST depression in V2 and V3. 3. Hyperlipidemia to continue Statins 4. GERD by history on Famotidine 5. Hypertension to continue Home medicines, 6. Aortic Stenosis status post Aortic Valve replacement. DVT prophylaxis with Famotidine. Code Status Full Code. Discussed Condition With Jacki Adhikari MD Physician Certification 2 Midnight Certification Type: Admission for Inpatient Services Order for Inpatient Services The services are ordered in accordance with Medicare regulations or non- Medicare payer requirements, as applicable. In the case of services not specified as inpatient-only, they are appropriately provided as inpatient services in accordance with the 2-midnight benchmark. Estimated LOS (days): 2 days is the estimated time the patient will need to remain in the hospital, assuming treatment plan goals are met and no additional complications. Post-Hospital Plan: Not yet determined Jonathon Kowalski MD Aug 08, 2017 11:50
[2017-08-08] MEDS ORDERED: SODIUM CHLORIDE 0.9% FLUSH 10 ML FLUSH IV FLUSH PRN (12:00)
[2017-08-08] MEDS ORDERED: NALOXONE HCL 0.4 MG/ML AMP IV PUSH PRN (12:00)
[2017-08-08] MEDS ORDERED: IOHEXOL 350 MG/ML 50 ML BTL (for Cath Lab) OTHER ONE (12:32)
[2017-08-08] MEDS ORDERED: IOHEXOL 350 MG/ML 100 ML BTL (for Cath Lab) OTHER ONE (12:32)
[2017-08-08] MEDS ORDERED: BISACODYL 10 MG SUPP RECTAL PRN (13:00)
[2017-08-08] MEDS ORDERED: LACTULOSE SYRUP 20 GM/30 ML CUP PO PRN (13:00)
[2017-08-08] MEDS ORDERED: ACETAMINOPHEN 325 MG TAB PO PRN (13:15)
[2017-08-08] MEDS ORDERED: SENNOSIDES 8.6 MG TAB PO PRN (13:15)
[2017-08-08] MEDS ORDERED: PILL SPLITTER OTHER PRN (13:15)
[2017-08-08] MEDS ORDERED: ONDANSETRON HCL 4 MG/2 ML VIAL IVP PRN (13:15)
[2017-08-08] MEDS: SODIUM CHLOR 0.9% 1000 ML INJ 1,000 ML IV SCH ×2 (13:18→21:47)
[2017-08-08 14:18] LABS: TROPONIN I LESS THAN 0.02 NG/ML (0.02-0.05)
[2017-08-08] MEDS ORDERED: MORPHINE SULFATE 2 MG/ML INJ IV PUSH PRN (15:00)
[2017-08-08] MEDS: HEPARIN SODIUM - SQ 10,000 UNITS/ML VIAL SQ SCH ×2 (15:00→21:47)
[2017-08-08] MEDS ORDERED: diphenhydrAMINE HCL 25 MG CAP PO SCH (16:30)
[2017-08-08] MEDS ORDERED: DIAZEPAM 5 MG TAB PO SCH (16:30)
--- NOTE | 2017-08-08 17:35 | MB ---
cc: Barak Stephens MD, Vance E MD DATE OF CONSULT: REASON FOR CONSULTATION: Evaluation of chest pain. HISTORY OF PRESENT ILLNESS: Raymundo Tanner is an 87-year-old man who is a patient of Dr. Lu'edward who is admitted to the hospital with chest pain. The patient has known heart disease. He developed aortic stenosis. He had a cardiac catheterization 07/13/[address] Goyal. At that time, his right coronary artery was dominant with only minimal irregularities. The left main was okay. The LAD had an 90% stenosis after the second septal goat driver branch. The diagonal branch had a lower branch with a 70% stenosis. The circumflex artery was non-obstructive. He underwent open-heart surgery by Dr. Lafleur 09/08/2016 and, at that time, he had a #25 Intuity tissue aortic valve replacement and a left internal mammary bypass graft to the LAD via the medium sternotomy. The patient has been having chest pain intermittently for the past 3 months. He describes it as a compression feeling in the upper chest typically lasting 30-60 minutes, occurring intermittently over 2-3 days or up to a half a day. He will go days without it and then he will have days when it bothers him. He came to the hospital with complaints of pain like this 06/15. He underwent a nuclear stress test that same day. A nuclear stress test showed a moderate size fixed inferolateral defect with no definite ischemia, EF of 52%. He was discharged with medical management after that visit. He came back to the ER again with chest pain 07/20/2017. He was discharged home. This is now the third trip to the ER that he has had for these symptoms. It feels like a pressure in his chest lasting a few hours yesterday. He is feeling fine at the present time I am seeing him. 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 He has a tissue aortic valve replacement from 08/2016, benign prostatic hypertrophy, right bundle-branch block, Wenckebach AV block. PAST SURGICAL HISTORY: Includes bypass surgery, prostate surgery. MEDICATIONS: Include amlodipine 10 mg, aspirin, levothyroxine, metoprolol, pravastatin. ALLERGIES: PENICILLIN. FAMILY HISTORY: Positive for CAD and NH. SOCIAL HISTORY: He smoked less than a half a pack per day for about 15 years. Denies any asbestos exposure. PHYSICAL EXAMINATION: GENERAL: Well-developed, well-nourished white male in no acute distress. VITAL SIGNS: Charted. Last blood pressure is 151/85, pulse is 66. HEENT: Unremarkable. NECK: No JVD. No bruits. CHEST: A few basilar crackles consistent with the CT scan findings. CARDIAC: S1 is variable, normal S2. ____ irregular rhythm, 1-2 over 6 systolic ejection murmur. ABDOMEN: Soft, nontender. No masses. EXTREMITIES: No clubbing, no cyanosis, or edema. Pulses are intact. IMAGING STUDIES: Chest CT scan from today shows findings consistent with acute and/or chronic interstitial lung disease. LABORATORY DATA: Hematocrit 43.9, troponins are negative x2, creatinine is 0.83. IMPRESSION: This is the third trip to the hospital for this 87-year-old man who had open-heart surgery last year. He describes a pressure feeling in the upper chest. He has had a nuclear stress test that does not correlate with his anatomy from May. RECOMMENDATIONS: We had a long discussion about workup options. We have decided on a cardiac catheterization to be definitive, particularly since the discomfort is ongoing and this is now his third visit to the hospital this year. The plan is a diagnostic cath first thing tomorrow morning to resolve whether there is an ischemic etiology or not. Informed consent has been obtained. MD ISABEL Pillai//teena , 04:29 PM , 05:01 PM
--- NOTE | 2017-08-08 19:12 | EKG ---
Date Performed: 08/08/2017 Time Performed: 08:38:01 PTAGE: 87 years EKG: Sinus rhythm WITH SECOND DEGREE TYPE 1 AV BLOCK BORDERLINE LEFT AXIS DEVIATION RIGHT BUNDLE BRANCH BLOCK ABNORMAL ECG PREVIOUS TRACING : 07/20/2017 10.53 Since the previous tracing, no significant change noted DOCTOR: Ruperto Lawrence Interpretating Date/Time 08/08/2017 19:11:59
[2017-08-08] MEDS ORDERED: PRAVASTATIN SOD 80 MG TAB PO SCH (21:00)
[2017-08-08] MEDS ORDERED: METOPROLOL TARTRATE 25 MG TAB PO SCH (21:00)
[2017-08-08] MEDS: SODIUM CHLORIDE 0.9% FLUSH 10 ML FLUSH IV FLUSH SCH (21:46)
[2017-08-08 23:02] LABS: TROPONIN I LESS THAN 0.02 NG/ML (0.02-0.05)
[2017-08-09] MEDS: SODIUM CHLOR 0.9% 1000 ML INJ 1,000 ML IV SCH ×2 (02:35→03:48)
[2017-08-09 03:44] VITALS: BP 117/67; PULSE 45; RESP 18; TEMP 98.1; O2SAT 94
[2017-08-09] MEDS: HEPARIN SODIUM - SQ 10,000 UNITS/ML VIAL SQ SCH (05:01)
[2017-08-09 05:27] LABS: BILIRUBIN, URINE NEG (NEG); BLOOD, URINE NEG (NEG); GLUCOSE,URINE NEG (NEG); KETONE, URINE NEG (NEG); NITRITE,URINE NEG (NEG); SQUAMOUS EPITHELIAL CELL URINE <1 /hpf (0-5); URINE COLOR YELLOW (YELLW/STRAW); URINE LEUKOCYTE ESTERASE NEG (NEG)
[2017-08-09] MEDS ORDERED: LEVOTHYROXINE SODIUM 25 MCG TAB PO SCH (06:00)
[2017-08-09] MEDS ORDERED: NITROGLYCERIN INJ 5 ML ONE (07:17)
[2017-08-09] MEDS ORDERED: HEPARIN SODIUM - IV 10,000 UNITS/10 ML VIAL ONE (07:17)
[2017-08-09] MEDS ORDERED: HEPARIN-NS/PF FLUSH BAG 2,000 ML IV FLUSH ONE (07:17)
[2017-08-09] MEDS ORDERED: VERAPAMIL HCL 5 MG/2 ML VIAL ONE (07:17)
[2017-08-09] MEDS ORDERED: MIDAZOLAM HCL 2 MG/2 ML VIAL ONE ×2 (07:41→08:20)
[2017-08-09] MEDS ORDERED: SODIUM CHLOR 0.9% 1000 ML INJ 1,000 ML IV SCH (08:39)
[2017-08-09] MEDS ORDERED: MISC INFORMATION XX ONE (08:45)
--- NOTE | 2017-08-09 08:48 | CATHPROC ---
[employer] HIS Report Study Information Study Number Admission Scheduled Start Study Start [id number] Aug 08 2017 12:31PM 08/09/2017 Aug 09 2017 6:45AM [place] Service Cardiac Catheterization Admit Source Facility Department Emergency department [facility] - Senior Mechanical Technician Physician and Clinical Staff Initial Barak Hernandez Bicycle Inspector Bentley Dowd,JORGE Bicycle Inspector Celio Valle,RN Recorder Lucas PATEL, Alicia Bonilla RT(R) Procedures Performed Procedure Location (Site) Vessel Name Coronary Angiograms LCA Left Coronary Coronary Angiograms RCA Right Coronary Coronary Angiograms BORRERO-LAD Left Coronary L Heart Cath Wire insertion Radial (left) Radial Art. Equipment Time Layboy Operator Description Size Mfg Part Number Used/Scraped TRANSDUCER, TRUWRANDY [id number] 07:29 WHITTAKER DIAZ * Used W/STOCKCOCK *[id number] 534-660T *[id number] 534-520T *[id number] 534-520T *[id number] 534-620T *[id number] 534-642T *[id number] 534-542T *[id number] *[id number] 07:29 MALLINCKRODT SYRINGE, ANGIOMAT 150ML 150ML *[id number] Used 2SUB [id number] 07:29 [employer] INDUSTRIES PACK, CCL CUSTOM * Used *[id number] 07:29 [employer] SUPPORT, ARTERIAL ADULT 95584 *[id number] Used [id number] 07:29 MEDLINE PACER PEN, SKIN DUAL W/ RULER * Used *[id number] 08:11 MEDTRONIC JR 4.0 DXTERITY CATHETER FR 5 Used *[id number] BAND, RADIAL COMPRESSION TR [id number] 08:31 [employer] MEDICAL 29CM Used LARGE 29 *[id number] 07:29 [employer] MEDICAL WIRE, EXCHANGE 260CM 3MMJ 260CM Used *[id number] 07:29 NAMIC MANIFOLD, 4 PORT * Used *[id number] 07:29 NYCOMED OMNIPAQUE, 350 MG, 100ML 100ML [id number] Used [id number] 07:29 REAVES MEDICAL BLANKET,WARM AIR CCL * Used *[id number] 07:29 [employer]res[employer] MEDICAL JELCO NEEDLE 4056 *[id number] Used SHEATH, FR6 TRANSRADIAL RM*[id number] 07:29 Hibernater FR 6 Used SLENDER 10CM *[id number] 08:18 [employer] PRIME WIRE, VERRATA 185CM 185CM 61542 *[id number] Used Equipment Model, Serial, Lot Number and Expiration Data Description Model Number Serial Number Lot Number Expiration Date PRIME WIRE, NAMITARATA 185CM [id number] 06-28-2020 History: Current Medications Medication Dosage/Unit Route Frequency Last Date/Time Taken ASA Beta Idalmis Statins (any) History: Allergies Allergy Reaction PCN History: Risk Factors Family History of Hypertension Dyslipidemia Previous IN Previous Heart Failure Premature CAD Yes Yes No No No Prior Valve Prior PCI Prior CABG Prior CABGDate Surgery Yes No Yes 09/08/2016 Cerebrovascular Peripheral Artery Chronic Lung On Dialysis Diabetes Disease Disease Disease No No No No No History: Stress Tests Stress or Imaging Studies Performed Yes Standard Exercise Stress Test No Stress Echo No Stress Test SPECT Stress Test SPECT Result Stress Test SPECT Ischemia Risk/Extent Yes Positive Intermediate Stress Test CMR No Cardiac CTA Coronary Calcium Score No No History: Other Current Smoker Quit Packs a Day Years Used Pack Years No 52 Years Ago 1 15 15 Labs Hgb (g/dl) Hct (%) WBC (l/cumm) Platelets (thousands) 11.60-17.00 35.00-51.00 4.00-11.00 150.00-450.00 15.8 43.9 6.9 182 BUN (mg/dl) Creatinine (mg/dl) BUN:Creatinine (1:x) 7.00-18.00 0.50-1.30 10.00-20.00 10 0.8 12.5 Na (meq/l) K (meq/l) 136.00-145.00 3.50-5.10 140 4.3 INR (PTT:PT) 0.90-1.10 1 Troponin I (ng/ml) CPK (u/l) CPK-MB (ng/ML) 0.02-0.05 26.00-308.00 0.50-3.60 0.02 48 Not Drawn Medication Medication Total Dose (Bolus/Oral) Medication Total Dosage/Unit 1% XYLOCAINE 3 mL HEPARIN 3100 units NTG (IC) 100 mcg OXYGEN 2 l/min RADIAL COCKTAIL 5 mL (Bolus) VERSED 3 mg Medications (Bolus/Oral) Medication Time Given Dosage/Unit Administered By Reason OXYGEN 08/09/2017 7:41:28 AM 2 l/min Celio Valle 2 l/min OXYGEN given in lab by Celio Valle RN via Nasal. Ordered by Barak Stephens. 1% XYLOCAINE 08/09/2017 7:42:13 AM 3 mL Leonard, Celio 3 mL 1% XYLOCAINE given in lab by Celio Valle RN in Left Radial via Subcutaneous. Ordered by Barak Stephens. VERSED 08/09/2017 7:43:40 AM 2 mg Bentley Dowd 2 mg VERSED given in lab by Bentley Dowd RN via Peripheral IV. Ordered by Barak Stephens. Ntg 200mcg Verapamil 2.5mg Heparin RADIAL COCKTAIL 08/09/2017 7:49:21 AM 5 mL (Bolus) Bentley Dowd 3000U 5 mL (Bolus) RADIAL COCKTAIL given in lab by Bentley Dowd RN in Left Radial via Radial. Using [Anais ution Name]. Ordered by Barak Stephens. Reason: Ntg 200mcg Verapamil 2.5mg Heparin 3000U. NTG (IC) 08/09/2017 8:11:39 AM 100 mcg Barak Stephens 200 mcg NTG given in lab by Barak Stephens via Intra-arterial. Ordered by Barak Stephens. HEPARIN 08/09/2017 8:18:37 AM 3100 units Celio Valle 3100 units HEPARIN given in lab by Celio Valle RN via Peripheral IV. Ordered by Barak Stephens. VERSED 08/09/2017 8:21:16 AM 1 mg Celio Valle 1 mg VERSED given in lab by Celio Valle RN via Peripheral IV. Ordered by Barak Stephens. Initial Case Assessment Cardiovascular HR NIBP 62 109/88 Edema Present Skin color Skin None Normal Warm Dry Neurological State Oriented to time-place- Alert Moves all extremities person Respiration - General Respiration Rate SpO2 (%) (B/min) 16 95 Chronological Log Time Study Chronological Log 7:12:28 Patient arrived via Bed. 7:12:31 Patient Name, D.O.B, / Armband Verified By R.N. 7:12:33 Consent signed by the physician and the patient and verified by the Senior Mechanical Technician staff. 7:12:35 Pre-op and post- op instructions given; patient acknowledges understanding of instructions. 7:12:47 Allens test performed on the left radial and ulnar artery. 7:12:51 Patient has been NPO for More than 6Hrs. 7:16:29 Yobany Prominences Protected Vitals capture started with the following parameters, Patient=Adult, Interval=5 min, Initial Pr ttszii=113 mmHg, 7:19:20 Deflation Rate=5 mmHg, Cuff placed on Left Leg 7:19:48 Skin Breakdown-none reported 7:19:53 NMQL=118/88 mmhg, Pain=0, Ryan=10, Barrientos=2 7:20:07 Patient Warmer Placed on the Table. 7:21:04 A # 20 IV was noted in the Forearm (left). Grade = 0 7:21:26 History and physical on the chart or being dictated. Assessment: Initial Case, HR=62 BPM, MFMG=629/88 mmhg, Edema=None, Color=Normal, Skin = Warm, D ry 7:21:28 Neurological: State=Alert, Ox3, ESTEBAN Respiration: Resp=16 B/min, SpO2=95 % 7:22:41 Left radial and groin(s) prepped with 2% chlorhexidine, and draped after a 3 min. waiting t joshua. 7:25:24 HR=77 bpm, EHMX=679/75 mmhg, SpO2=98.0 %, Resp=20 B/min, Pain=0, Barrientos=2 7:29:57 HR=60 bpm, WSQV=910/81 mmhg, SpO2=95.0 %, Resp=20 B/min, Pain=0, Barrientos=2 7:31:13 MD paged 7:33:33 Pressure channel 1 zeroed. 7:34:56 HR=73 bpm, QRHX=153/85 mmhg, SpO2=93.0 %, Resp=20 B/min, Pain=0, Barrientos=2 7:35:11 MD arrived. 7:35:57 MD arrived. 7:39:55 HR=72 bpm, EVPL=052/89 mmhg, SpO2=94.0 %, Resp=20 B/min, Pain=0, Barrientos=2 7:41:28 2 l/min OXYGEN given in lab by Celio aVlle RN via Nasal. Ordered by Barak Stephens. 7:42:13 3 mL 1% XYLOCAINE given in lab by Celio Valle, RN in Left Radial via Subcutaneous. Ordered by Barak Stephens. Time Out. Correct patient, correct procedure, correct physician, power injector loaded, or not l oaded with contrast with 7:42:41 surgical team present. Time Out Concurred by MD and individual staff in procedure. 7:43:04 Case Start 7:43:40 2 mg VERSED given in lab by Bentley Dowd, RN via Peripheral IV. Ordered by Barak Stephens. 7:44:56 HR=73 bpm, QPKI=749/83 mmhg, SpO2=96.0 %, Resp=12 B/min, Pain=0, Barrientos=2 7:48:42 Access site was Left Radial Artery. A SHEATH, FR6 TRANSRADIAL SLENDER 10CM FR 6 was advanced into the Radial (left) using the Yenifer marie Seldingsher 7:48:57 technique. 5 mL (Bolus) RADIAL COCKTAIL given in lab by Bentley Dowd, JORGE in Left Radial via Radial. Using [Solution Name]. 7:49:21 Ordered by Barak Stephens. Reason: Ntg 200mcg Verapamil 2.5mg Heparin 3000U. 7:50:03 HR=71 bpm, FBDH=237/61 mmhg, SpO2=95.0 %, Resp=10 B/min, Pain=0, Barrientos=4 7:51:32 A CHRISTY INFINITI CATHETER FR 6 was advanced over a wire. Recorded Pressure: Ao, HR=73, Condition=Condition 1 7:53:40 (Aorta) Ao 106/59/81 7:54:58 HR=69 bpm, URUJ=134/52 mmhg, SpO2=97.0 %, Resp=22 B/min, Pain=0, Barrientos=4 7:55:51 The BORRERO-LAD was injected and visualized at various angles. OMNIPAQUE, 350 MG, 100ML 100ML u sed. After removing the current catheter a JL 4.0 INFINITI CATHETER FR 5 was advanced over a WIRE, EX CHANGE 260CM 7:58:59 3MMJ 260CM. 7:59:57 HR=61 bpm, QBWR=936/57 mmhg, SpO2=91.0 %, Resp=12 B/min, Barrientos=4 8:01:36 The LCA was injected and visualized at various angles. OMNIPAQUE, 350 MG, 100ML 100ML used. A MPA-2 INFINITI CATHETER FR 5 was advanced over a wire. OMNIPAQUE, 350 MG, 100ML 100ML was used for 8:03:45 injections. 8:05:00 HR=54 bpm, SQVR=383/52 mmhg, SpO2=90.0 %, Resp=21 B/min, Barrientos=4 8:08:18 The RCA was injected and visualized at various angles. OMNIPAQUE, 350 MG, 100ML 100ML used. 8:09:53 HR=49 bpm, MTDB=261/72 mmhg, SpO2=92.0 %, Resp=21 B/min, Barrientos=4 After removing the current catheter a JR 4.0 DXTERITY CATHETER FR 5 was advanced over a WIRE, EX CHANGE 260CM 8:10:57 3MMJ 260CM. 8:11:39 200 mcg NTG given in lab by Barak Stephens via Intra-arterial. Ordered by Barak Stephens. 8:13:31 The RCA was injected and visualized at various angles. OMNIPAQUE, 350 MG, 100ML 100ML used. 8:14:56 HR=60 bpm, UYRU=545/68 mmhg, SpO2=91.0 %, Resp=13 B/min, Barrientos=4 8:15:16 A Left Heart Cath was performed. After removing the current catheter a XB 3.5 GUIDE CATHETER FR 6 was advanced over a WIRE, EXCHA NGE 260CM 8:15:21 3MMJ 260CM. 8:18:37 3100 units HEPARIN given in lab by Celio Valle RN via Peripheral IV. Ordered by Desi Stephens. 8:19:01 Wire removed 8:19:04 A PRIME WIRE, VERRATA 185CM 185CM was inserted via Radial (left). 8:20:01 HR=57 bpm, SEPG=063/57 mmhg, SpO2=98.0 %, Resp=18 B/min, Pain=0, Barrientos=2 8:20:45 Pressure channel 1 zeroed. 8:21:16 1 mg VERSED given in lab by Celio Valle RN via Peripheral IV. Ordered by Barak Stephens. 8:23:21 Flow Wire was was placed in the CIRC Mid. The FFR measures ~FFR~ percent. The IFR measures 0 .99 Percent. 8:25:00 HR=48 bpm, TNSZ=024/59 mmhg, SpO2=93.0 %, Resp=19 B/min, Barrientos=2 8:27:40 Activated Clotting Time Drawn 8:28:36 Case End 8:30:14 DOCU called. Spoke to Marlene 8:30:32 HR=59 bpm, DERS=892/57 mmhg, SpO2=90.0 %, Resp=19 B/min, Barrientos=2 Radial Compression Device Used. 13 mLs of air placed in BAND, RADIAL COMPRESSION TR LARGE 29 2 9CM. Affected 8:30:50 hand 97 % O2 saturation. 8:32:23 Vitals capture stopped. 8:37:34 Bedside Report will be given. 8:37:46 No case complications noted. 8:37:53 Patient moved to [facility] End Study - Contrast Media Used In Study Contrast Total Opened (mL) Total Used (mL) Total Wasted (mL) Omnipaque 150 150 0 End Study - Maximum Contrast Load Max Contrast Load (mL) 500.0 End Study - Radiation Exposure Fluoro Time (minutes) 12.4 End Study - Patient Disposition Complications Transferred To Interventional Outcome No Senior Mechanical Technician Holding No attempt made
--- NOTE | 2017-08-09 08:56 | MA ---
cc: Barak Stephens MD 08/09/2017 Raymundo Tanner is an 87-year-old man who underwent aortic valve replacement and left internal mammary to LAD bypass surgery last year. He has been admitted with chest pain in May with a fixed defect on his nuclear test. He has had 2 other trips to the hospital and is now admitted for unstable angina. PROCEDURE PERFORMED: Coronary angiography, bypass graft angiography. DESCRIPTION OF THE PROCEDURE: Using 1% lidocaine for local anesthesia, a Terumo slender sheath was inserted in the left radial artery and a standard cocktail administered. Next, I performed angiography of the left internal mammary bypass using an CHRISTY catheter. This was technically difficult to do from the wrist due to angulation and actually would be easier to do in the future from the groin. Coronary angiography was completed using a left 4 Tonya catheter. A right coronary angiography was attempted with the multipurpose, but competed with the right Tonya catheter. I opted to perform IFR of the circumflex artery. A 6 Romanian XB 3.5 guiding catheter was used to engage the left main. IV heparin was administered. IFR was obtained of the circumflex artery with a value of 0.99. The wire was then withdrawn. The guiding catheter was removed. The sheath removed with a Terumo band placed. There were no complications. The patient was sedated during the procedure with Versed. FINDINGS: 1. HEMODYNAMICS: Aortic pressure is 106/59 with a mean of 81. 2. CORONARY ANGIOGRAPHY: The left main coronary artery appears normal. It bifurcates into the LAD and circumflex vessels. The LAD goes off a diagonal branch immediately after that and has a 90% stenosis which is before the first septal workers compensation administrator branch. There is competitive flow in the distal LAD from the mammary bypass. The diagonal branch bifurcates very proximally. There is stenosis right at the bifurcation which is difficult to visualize. In addition, there is a 70% mid anterior branch stenosis of the diagonal branch. It was felt this was best treated medically. The circumflex artery has a hazy 60% proximal stenosis after a tiny marginal branch. IFR of this lesion showed it was not significant. The right coronary artery is a large dominant vessel. The posterolateral branch is huge and has about 20% eccentric stenosis only. 3. BYPASS GRAFTS: The left internal mammary bypass graft is patent to the LAD. Visualization was difficult due to competitive flow, but the graft can be seen to be patent. CONCLUSIONS: This patient has unexplained chest pain is the reason I went ahead to do a cardiac cath. The left internal mammary bypass graft is patent to the LAD. The right coronary artery and circumflex arteries do not have any flow limiting lesions. The diagonal branch, unfortunately, was not bypassed. It has disease where it forks and disease further down into the anterior branch. It does not appear to be critical and this would be challenging to try to do intervention on and I recommend medical management for this. It is not clear if this is actually the source of his chest pain or not. We will add 30 mg of Imdur at discharge and the patient will be followed up by Dr. Lu. Barak Stephens MD VEJeanie/PHI , 08:38 AM , 08:55 AM
[2017-08-09] MEDS ORDERED: ASCORBIC ACID 500 MG TAB PO SCH (09:00)
[2017-08-09] MEDS: SODIUM CHLORIDE 0.9% FLUSH 10 ML FLUSH IV FLUSH SCH (09:00)
[2017-08-09] MEDS ORDERED: CYANOCOBALAMIN 1,000 MCG TAB PO SCH (09:00)
[2017-08-09] MEDS ORDERED: ASPIRIN 81 MG CHEW TAB CHEW SCH (09:00)
--- NOTE | 2017-08-09 09:38 | HHI.PR ---
Subjective Remarks Admission Note: This is a pleasant 87 y/o male who complaint of Chest pain, that started early in am today, as an Oppressive sensation, he has multiple evaluations in ER due to the same complaint, He has history of CABG and aortic valve replacement in the past. He has not followed up with his visual aid expert after each visit for his chest pain. He denies difficulty breathing. He denies nausea or vomiting. He denies cough or cold. Severity is mild to moderate. as per patient he states he is having this precordial pain for months as intermittent pain, oppressive in nature and sometimes on epigastric area. does not worsens with activity. lasts for some minutes, 6/10 in intensity patient status post cardiac Catheterization with diagnosis of unexplained chest pain Left internal mammary bypass graft is patent to the LAD, The right coronary artery and circumflex arteries do not have any flow limiting lesions. The diagonal branch, unfortunately, was not bypassed. It has disease where it forks and disease further down into the anterior branch. It does not appear to be critical and this would be challenging to try to do intervention on recommended Medical management added Imdur 30 mg daily. and follow by Doctor Aly as per Doctor Barak Stephens. Seen Post Cardiac Cath no complaint, okay to discharge and follow with internet marketing specialist. No nausea, vomit or diarrhea. Objective Vital Signs Date Time Temp Pulse Resp B/P (MAP) Pulse Ox O2 Delivery O2 Flow Rate FiO2 08/09/17 08:54 93 Room Air 08/09/17 03:44 98.1 45 18 117/67 (84) 94 08/08/17 22:19 97.8 56 18 125/75 (92) 96 08/08/17 20:00 97 08/08/17 18:00 59 08/08/17 15:21 98.1 66 20 151/85 (107) 95 08/08/17 14:35 54 17 175/76 (109) Room Air 08/08/17 10:58 44 17 137/70 (92) 98 Room Air I/O 08/08/17 08/08/17 08/08/17 08/09/17 08/09/17 08/09/17 07:00 15:00 23:00 07:00 15:00 23:00 Intake Total 200 ml Balance 200 ml Intake Oral 200 ml Result Diagram: 08/08/17 0830 08/08/17 0830 Imaging Last Impressions Chest X-Ray 08/08/17 0843 Signed Impressions: Service Date/Time: Tuesday, August 08, 2017 09:14 - CONCLUSION: 1. Interstitial lung disease at the bases. Findings may represent pulmonary fibrosis. This would be better evaluated with chest CT. 2. Postoperative median sternotomy and aortic valve replacement. No consolidation or effusion. Fermin Goyal MD Chest CT 08/08/17 0000 Signed Impressions: Service Date/Time: Tuesday, August 08, 2017 10:06 - CONCLUSION: 1. 8 mm noncalcified nodule within the right middle lobe and fibroma noncalcified nodule within the right middle lobe. 2. Cardiomegaly and coronary artery calcifications. 3. Diffusely increased interstitial markings predominantly within the lower lobes consistent with acute and/or chronic interstitial disease. 4. Biapical pleural thickening and scarring. 5. Degenerative changes and scoliosis of the thoracolumbar spine. The findings described above include a newly detected solid pulmonary nodule of 6-8 mm average diameter. Guidelines from the Fleischner Society for the follow-up and management of newly detected indeterminate pulmonary nodules in persons >34 years old depend on nodule size (average of length and width) and underlying risk factors (including smoking and other risk factors). Please consider the following recommendations after clinical assessment of risk factors. For 6-8 mm nodules: In low risk patients , initial follow-up CT at 6-12 months, then 18-24 months if no change. In high risk patients, initial follow-up CT at 3-6 months, then 9-12 and 24 months if no change. Demond Cat MD Procedures Cardiac Cath 08/09/17 Left internal mammary bypass graft is patent to the LAD, The right coronary artery and circumflex arteries do not have any flow limiting lesions. The diagonal branch, unfortunately, was not bypassed. It has disease where it forks and disease further down into the anterior branch. It does not appear to be critical and this would be challenging to try to do intervention. Other Results Laboratory Tests Test 08/08/17 08:30 08/08/17 17:13 08/09/17 05:00 White Blood Count 6.9 TH/MM3 Red Blood Count 4.60 MIL/MM3 Hemoglobin 15.8 GM/DL Hematocrit 43.9 % Mean Corpuscular Volume 95.4 FL Mean Corpuscular Hemoglobin 34.3 PG Mean Corpuscular Hemoglobin Concent 35.9 % Red Cell Distribution Width 13.2 % Platelet Count 182 TH/MM3 Mean Platelet Volume 8.3 FL Neutrophils (%) (Auto) 77.3 % Lymphocytes (%) (Auto) 14.4 % Monocytes (%) (Auto) 6.7 % Eosinophils (%) (Auto) 1.2 % Basophils (%) (Auto) 0.4 % Neutrophils # (Auto) 5.3 TH/MM3 Lymphocytes # (Auto) 1.0 TH/MM3 Monocytes # (Auto) 0.5 TH/MM3 Eosinophils # (Auto) 0.1 TH/MM3 Basophils # (Auto) 0.0 TH/MM3 CBC Comment AUTO DIFF Differential Comment AUTO DIFF CONFIRMED Prothrombin Time 10.1 SEC Prothromb Time International Ratio 1.0 RATIO Activated Partial Thromboplast Time 27.0 SEC Blood Urea Nitrogen 10 MG/DL Creatinine 0.83 MG/DL Random Glucose 74 MG/DL Total Protein 8.1 GM/DL Albumin 4.3 GM/DL Calcium Level 9.1 MG/DL Alkaline Phosphatase 77 U/L Aspartate Amino Transf (AST/SGOT) 19 U/L Alanine Aminotransferase (ALT/SGPT) 20 U/L Total Bilirubin 0.6 MG/DL Sodium Level 140 MEQ/L Potassium Level 4.3 MEQ/L Chloride Level 103 MEQ/L Carbon Dioxide Level 29.3 MEQ/L Anion Gap 8 MEQ/L Estimat Glomerular Filtration Rate 88 ML/MIN B-Type Natriuretic Peptide 109 PG/ML Total Creatine Kinase 48 U/L Troponin I LESS THAN 0.02 NG/ML Urine Color YELLOW Urine Turbidity CLEAR Urine pH 7.0 Urine Specific [place] 1.012 Urine Protein NEG mg/dL Urine Glucose (UA) NEG mg/dL Urine Ketones NEG mg/dL Urine Occult Blood NEG Urine Nitrite NEG Urine Bilirubin NEG Urine Urobilinogen LESS THAN 2.0 MG/DL Urine Leukocyte Esterase NEG Urine RBC 1 /hpf Urine WBC LESS THAN 1 /hpf Urine Squamous Epithelial Cells <1 /hpf Microscopic Urinalysis Comment CULT NOT INDICATED Objective Remarks GENERAL: Awake and alert, in no acute distress. SKIN: Focused skin assessment warm/dry. No wounds or signs of infection. HEAD: Atraumatic. Normocephalic. EYES: Pupils equal and round. No scleral icterus. ENT: Mucous membranes pink and moist. NECK: Trachea midline. No JVD. CARDIOVASCULAR: Regular rate and rhythm. No murmur appreciated. RESPIRATORY: No accessory muscle use. Crackles at both lung bases. Breath sounds equal bilaterally. GASTROINTESTINAL: Abdomen soft, non-tender, nondistended. MUSCULOSKELETAL: No obvious deformities. No clubbing. No cyanosis. No edema. NEUROLOGICAL: Awake and alert. No obvious cranial nerve deficits. Motor grossly within normal limits. Normal speech. PSYCHIATRIC: Appropriate mood and affect; insight and judgment normal. Medications and IVs Current Medications Medications (Trade) Dose Ordered Sig/Mandie Route Start Time Stop Time Status Last Admin (NS Flush) 2 ml UNSCH PRN IVF 08/08/17 08:45 (NS Flush) 2 ml UNSCH PRN IV FLUSH 08/08/17 12:00 (NS Flush) 2 ml BID IV FLUSH 08/08/17 21:00 08/09/17 09:00 (Tylenol) 650 mg Q4H PRN PO 08/08/17 13:15 (Zofran Inj) 4 mg Q6H PRN IVP 08/08/17 13:15 (Narcan Inj) 0.4 mg UNSCH PRN IV PUSH 08/08/17 12:00 (Senokot) 17.2 mg Q12HR PRN PO 08/08/17 13:15 (Dulcolax Supp) 10 mg DAILY PRN RECTAL 08/08/17 13:00 (Lactulose Liq) 30 ml DAILY PRN PO 08/08/17 13:00 (Norvasc) 10 mg DAILY PO 08/09/17 09:00 08/09/17 09:00 (Aspirin Chew) 81 mg DAILY CHEW 08/09/17 09:00 (Vitamin B12) 1,000 mcg DAILY PO 08/09/17 09:00 08/09/17 09:00 (Synthroid) 25 mcg DAILY@0600 PO 08/09/17 06:00 08/09/17 05:00 (Lopressor) 12.5 mg HS PO 08/08/17 21:00 08/08/17 21:46 (Pravachol) 80 mg HS PO 08/08/17 21:00 08/08/17 21:46 (Vitamin C) 500 mg DAILY PO 08/09/17 09:00 08/09/17 09:00 (Pill Splitter) 1 ea UNSCH PRN OTHER 08/08/17 13:15 (Heparin Inj) 5,000 units Q8HR SQ 08/08/17 15:00 08/09/17 05:01 (Morphine Inj) 1 mg Q4H PRN IV PUSH 08/08/17 15:00 (Benadryl) 25 mg CERTIFIED DIALYSIS TECHNICIAN PO 08/08/17 16:30 08/12/17 16:29 (Valium) 5 mg CERTIFIED DIALYSIS TECHNICIAN PO 08/08/17 16:30 08/12/17 16:29 (Imdur) 30 mg DAILY@07 PO 08/10/17 07:00 Sodium Chloride 1,000 ml @ 100 mls/hr Q10H IV 08/09/17 08:39 08/09/17 20:38 08/09/17 08:39 A/P Assessment and Plan 1. Unstable angina in a patient with CAD status post Cardiac Catheterization in 2016, he also had CABG and Aortic Valve replacement new Cardiac Cath 08/09/17 Left internal mammary bypass graft is patent to the LAD, The right coronary artery and circumflex arteries do not have any flow limiting lesions. The diagonal branch, unfortunately, was not bypassed. It has disease where it forks and disease further down into the anterior branch. It does not appear to be critical and this would be challenging to try to do intervention. recommended medical management by internet marketing specialist Doctor Barak Stephens, Added Imdur 30 mg daily and follow with internet marketing specialist doctor Barbie Lu. 2. CAD status post Cardiac Catheterization 2017, CABG, on [place] RBBB, ST depression in V2 and V3. 3. Hyperlipidemia to continue Statins 4. GERD by history on Famotidine 5. Hypertension to continue Home medicines, 6. Aortic Stenosis status post Aortic Valve replacement Cardiology following the case DVT prophylaxis with Famotidine. Code Status Full Code. Discussed Condition With patient and nurse. Discharge Planning Discharge Home. Jonathon Kowalski MD Aug 09, 2017 09:38
[2017-08-09] MEDS ORDERED: ISOS30TA3 PO (09:40)
--- NOTE | 2017-08-09 09:51 | HHI.DS ---
Discharge Summary Admission Date Aug 08, 2017 at 12:31 Discharge Date: Aug 09, 2017 Admitting Diagnosis (1) Chest pain ICD Code: R07.9 - Chest pain, unspecified Diagnosis: Principal Status: Acute (2) CAD (coronary artery disease) ICD Code: I25.10 - Atherosclerotic heart disease of [place] coronary artery without angina pectoris Diagnosis: Principal Status: Acute Procedures Cardiac Cath 08/09/17 Left internal mammary bypass graft is patent to the LAD, The right coronary artery and circumflex arteries do not have any flow limiting lesions. The diagonal branch, unfortunately, was not bypassed. It has disease where it forks and disease further down into the anterior branch. It does not appear to be critical and this would be challenging to try to do intervention. Brief History - From Admission This is a pleasant 87 y/o male who complaint of Chest pain, that started early in am today, as an Oppressive sensation, he has multiple evaluations in ER due to the same complaint, He has history of CABG and aortic valve replacement in the past. He has not followed up with his veterinary attendant after each visit for his chest pain. He denies difficulty breathing. He denies nausea or vomiting. He denies cough or cold. Severity is mild to moderate. as per patient he states he is having this precordial pain for months as intermittent pain, oppressive in nature and sometimes on epigastric area. does not worsens with activity. lasts for some minutes, 6/10 in intensity CBC/BMP: 08/08/17 0830 08/08/17 0830 Significant Findings Laboratory Tests Test 08/08/17 08:30 08/08/17 13:26 08/08/17 17:13 08/09/17 05:00 Mean Corpuscular Hemoglobin 34.3 PG (27.0-34.0) Neutrophils (%) (Auto) 77.3 % (16.0-70.0) Estimat Glomerular Filtration Rate 88 ML/MIN (>89) Troponin I LESS THAN 0.02 NG/ML LESS THAN 0.02 NG/ML LESS THAN 0.02 NG/ML B-Type Natriuretic Peptide 109 PG/ML (0-100) PE at Discharge GENERAL: Awake and alert, in no acute distress. SKIN: Focused skin assessment warm/dry. No wounds or signs of infection. HEAD: Atraumatic. Normocephalic. EYES: Pupils equal and round. No scleral icterus. ENT: Mucous membranes pink and moist. NECK: Trachea midline. No JVD. CARDIOVASCULAR: Regular rate and rhythm. No murmur appreciated. RESPIRATORY: No accessory muscle use. Crackles at both lung bases. Breath sounds equal bilaterally. GASTROINTESTINAL: Abdomen soft, non-tender, nondistended. MUSCULOSKELETAL: No obvious deformities. No clubbing. No cyanosis. No edema. NEUROLOGICAL: Awake and alert. No obvious cranial nerve deficits. Motor grossly within normal limits. Normal speech. PSYCHIATRIC: Appropriate mood and affect; insight and judgment normal. Hospital Course Admission Note: This is a pleasant 87 y/o male who complaint of Chest pain, that started early in am today, as an Oppressive sensation, he has multiple evaluations in ER due to the same complaint, He has history of CABG and aortic valve replacement in the past. He has not followed up with his veterinary attendant after each visit for his chest pain. He denies difficulty breathing. He denies nausea or vomiting. He denies cough or cold. Severity is mild to moderate. as per patient he states he is having this precordial pain for months as intermittent pain, oppressive in nature and sometimes on epigastric area. does not worsens with activity. lasts for some minutes, 6/10 in intensity patient status post cardiac Catheterization with diagnosis of unexplained chest pain Left internal mammary bypass graft is patent to the LAD, The right coronary artery and circumflex arteries do not have any flow limiting lesions. The diagonal branch, unfortunately, was not bypassed. It has disease where it forks and disease further down into the anterior branch. It does not appear to be critical and this would be challenging to try to do intervention on recommended Medical management added Imdur 30 mg daily. and follow by Doctor Lu as per Doctor Barak Stephens. Seen Post Cardiac Cath no complaint, okay to discharge and follow with cardiology specialist. No nausea, vomit or diarrhea. Assessment and Plan 1. Unstable angina in a patient with CAD status post Cardiac Catheterization in 2017, he also had CABG and Aortic Valve replacement new Cardiac Cath 08/09/17 Left internal mammary bypass graft is patent to the LAD, The right coronary artery and circumflex arteries do not have any flow limiting lesions. The diagonal branch, unfortunately, was not bypassed. It has disease where it forks and disease further down into the anterior branch. It does not appear to be critical and this would be challenging to try to do intervention. recommended medical management by cardiology specialist Doctor Barak Stephens, Added Imdur 30 mg daily and follow with cardiology specialist doctor Barbie Lu. 2. CAD status post Cardiac Catheterization 2017, CABG, on [place]HO RBBB, ST depression in V2 and V3. 3. Hyperlipidemia to continue Statins 4. GERD by history on Famotidine 5. Hypertension to continue Home medicines, 6. Aortic Stenosis status post Aortic Valve replacement Cardiology following the case DVT prophylaxis with Famotidine. Code Status Full Code. Discussed Condition With patient and nurse. Discharge Planning Discharge Home. Pt Condition on Discharge: Good Discharge Disposition: Discharge Home Discharge Time: <= 30 minutes Discharge Instructions DIET: Follow Instructions for: Heart Healthy Diet Activities you can perform: Regular-No Restrictions Jonathon Kowalski MD Aug 09, 2017 09:51
--- NOTE | 2017-08-09 23:31 | EKG ---
Date Performed: 08/08/2017 Time Performed: 22:25:58 PTAGE: 87 years EKG: Sinus rhythm WITH TYPE 1 SECOND DEGREE AV BLOCK BORDERLINE LEFT AXIS DEVIATION RIGHT BUNDLE BRANCH BLOCK ABNORMAL ECG PREVIOUS TRACING : 08/08/2017 08.38 Since the previous tracing, no significant change noted DOCTOR: Paul Waldron Interpretating Date/Time 08/09/2017 23:29:56
[2017-08-10] MEDS ORDERED: ISOSORBIDE MONONITRATE 30 MG CR TAB (IMDUR) PO SCH (07:00)
== END 2017-08-09 13:00 | disposition home or self-care (01) ==
LOC: NEPE 08:02 → NEDA 12:31 → NEDH 16:54 → NEPGCP 18:20 → HCIS 08-09 07:24
PROVIDERS: ADMIT Internal Medicine; ATTEND Internal Medicine
DX: I25.110 Atherosclerotic heart disease of native coronary artery with unstable angina pectoris (principal); E78.5 Hyperlipidemia, unspecified; I10 Essential (primary) hypertension; I35.0 Nonrheumatic aortic (valve) stenosis; I44.1 Atrioventricular block, second degree; I45.10 Unspecified right bundle-branch block; E78.00 Pure hypercholesterolemia, unspecified; E03.9 Hypothyroidism, unspecified; J84.9 Interstitial pulmonary disease, unspecified; R60.0 Localized edema; R94.31 Abnormal electrocardiogram [ECG] [EKG]; K21.9 Gastro-esophageal reflux disease without esophagitis; R91.8 Other nonspecific abnormal finding of lung field; M41.85 Other forms of scoliosis, thoracolumbar region; N40.0 Benign prostatic hyperplasia without lower urinary tract symptoms; H91.90 Unspecified hearing loss, unspecified ear; Z95.2 Presence of prosthetic heart valve; Z95.1 Presence of aortocoronary bypass graft; Z79.899 Other long term (current) drug therapy; Z79.82 Long term (current) use of aspirin; Z87.891 Personal history of nicotine dependence
CPT/HCPCS: 71046; 71250; 80053; 81001; 82550; 83880; 84484; 85025; 85610; 85730; 93005; 93454; 93571; 96360; 96361; 96372; 97162; 99152; 99153; 99285; C1769; C1887; C1893; G0378; G8987; G8988; J1644; J2250; J7030; Q9967

== ENCOUNTER 2017-10-09 14:44 | Observation (INO) | payer OTHER ==
[~2017-10-09 14:44] MED LIST changes: +ISOS30TA3 PO
[2017-10-09 15:05] VITALS: BP 112/62; PULSE 34; RESP 18; TEMP 98.9; O2SAT 95
--- NOTE | 2017-10-09 15:29 | RADRPT ---
EXAM DATE/TIME: 10/09/2017 15:14 [place] COMPARISON: CT THORAX W/O CONTRAST, August 08, 2017, 10:06. CHEST SINGLE AP, July 20, 2017, 10:44. INDICATIONS : Chest pain. MEDICAL HISTORY : Cardiovascular disease. Hypertension. Diabetes mellitus type 2. SURGICAL HISTORY : CABG. Aortic valve replacement. ENCOUNTER: Initial ACUITY: 1 day PAIN SCORE: 5/10 LOCATION: Bilateral chest FINDINGS: Redemonstration of lower lobe predominance interstitial prominence. No significant new focal pleural or parenchymal opacities. cardiomediastinal contours are stable. Remainder of the exam is unchanged. CONCLUSION: 1. No acute abnormality or significant interval change. Elroy Cardenas MD on October 09, 2017 at 15:22 Board Certified Radiologist. This report was verified electronically.
[2017-10-09 16:15] VITALS: BP 136/68; PULSE 50; RESP 17; O2SAT 95
[2017-10-09] MEDS ORDERED: ATOR20TA15 PO (16:15)
[2017-10-09 16:26] LABS: AUTOMATED NEUTROPHIL # 4.1 TH/MM3 (1.8-7.7); BASOPHIL % 0.4 % (0.0-2.0); EOSINOPHIL # 0.1 TH/MM3 (0-0.4); HEMATOCRIT 38.7 % (39.0-51.0); HEMOGLOBIN 13.3 GM/DL (13.0-17.0); LYMPHOCYTE # 0.9 TH/MM3 (1.0-4.8); MEAN CELL VOLUME 95.9 FL (80.0-100.0); MEAN CORPUSCULAR HEMOGLOBIN 32.9 PG (27.0-34.0); MEAN CORPUSCULAR HGB CONC 34.3 % (32.0-36.0); MEAN PLATELET VOLUME 8.3 FL (7.0-11.0); MONO % 7.4 % (0.0-8.0); MONOCYTE # 0.4 TH/MM3 (0-0.9); NEUT % 74.2 % (16.0-70.0); PLATELET COUNT 165 TH/MM3 (150-450); RED BLOOD COUNT 4.04 MIL/MM3 (4.50-5.90); RED CELL DISTRIBUTION WIDTH 13.1 % (11.6-17.2); WHITE BLOOD COUNT 5.5 TH/MM3 (4.0-11.0)
--- NOTE | 2017-10-09 16:51 | PD ---
HPI Chief Complaint: Dizziness Time Seen by Provider: 16:16 Travel History International Travel<30 days: No Contact w/Intl Traveler<30days: No Traveled to known affect area: No History of Present Illness HPI This is an 87-year-old male with history of aortic valve replacement, LAD bypass in 2017, hypertension, GERD, hypothyroidism, presents via EMS for evaluation of dizziness. For the past 3 days he has had dizziness which is intermittent, worse with activity. He was seen at an urgent care center and sent here for further evaluation. He denies any chest pain, shortness of breath. He is not currently dizzy. Denies palpitations, headache, abdominal pain, nausea or vomiting. No other complaints at this time. Color Television Console Monitor is Dr. Lu. [facility], [facility] Past Medical History Hx Anticoagulant Therapy: Yes Asthma: No Blood Disorders: No Anxiety: No Depression: No Heart Rhythm Problems: No Cancer: No Cardiac Catheterization: Yes (2017) Cardiovascular Problems: Yes (CABG hx, aortic valve replaced) High Cholesterol: No Chemotherapy: No Chest Pain: No Congestive Heart Failure: No COPD: No Diabetes: No Diminished Hearing: Yes Endocrine: No Gastrointestinal Disorders: Yes (GERD) GERD: Yes Genitourinary: No Hepatitis: No Hiatal Hernia: No Heparin Induced Thrombocytopen: No Hypertension: Yes Immune Disorder: No Implanted Vascular Access Dvce: Yes Medical other: No Musculoskeletal: No Neurologic: Yes ([place], chest pain today) Psychiatric: No Reproductive: No Respiratory: No Immunizations Current: Yes Myocardial Infarction: No Radiation Therapy: No Sleep Apnea: No Thyroid Disease: No Ulcer: No ?: Not Past Surgical History Abdominal Surgery: No AICD: No Body Medical Devices: weak and tired, fell a few months ago, uses walker at times Cardiac Surgery: Yes (OPEN HEART, AORTIC VALVE REPLACED) Coronary Artery Bypass Graft: Yes Ear Surgery: No Endocrine Surgery: No Eye Surgery: No Genitourinary Surgery: Yes (TURP) Joint Replacement: No Neurologic Surgery: No Oral Surgery: No Pacemaker: No Thoracic Surgery: No Other Surgery: Yes (TURP) Family History Family Myocardial Infarction: Yes (Grandfather, father, mother ) Social History Alcohol Use: No Tobacco Use: No Substance Use: No Allergies-Medications (Allergen,Severity, Reaction): Coded Allergies: penicillin G (Unverified Allergy, Severe, Swelling, 10/09/17) Reported Meds & Prescriptions Reported Meds & Active Scripts Active Isosorbide Mononitrate ER (Isosorbide Mononitrate) 30 Mg Deejay 30 Mg PO DAILY@07 Reported Atorvastatin (Atorvastatin Calcium) 20 Mg Tab 20 Mg PO HS Metoprolol Tartrate 25 Mg Tab 12.5 Mg PO HS Vitamin C (Ascorbic Acid) 250 Mg Chew 500 Mg CHEW DAILY Aspirin 81 Mg Chew 81 Mg CHEW DAILY Amlodipine (Amlodipine Besylate) 10 Mg Tab 10 Mg PO DAILY Vitamin B-12 (Cyanocobalamin) 1,000 Mcg Tab 1,000 Mcg PO DAILY Levothyroxine (Levothyroxine Sodium) 25 Mcg Tab 25 Mcg PO MON, Multiple Vitamin 1 Tab 1 Tab PO DAILY Review of Systems Except as stated in HPI: all other systems reviewed are Neg Physical Exam Narrative GENERAL: Pleasant well-developed well-nourished male in no acute distress. Heart rate is in the 50s. SKIN: Warm and dry. HEAD: Atraumatic. Normocephalic. EYES: Pupils equal and round. No scleral icterus. No injection or drainage. ENT: No nasal bleeding or discharge. Mucous membranes pink and moist. NECK: Trachea midline. No JVD. CARDIOVASCULAR: Regular rate and rhythm. No murmur appreciated. RESPIRATORY: No accessory muscle use. Clear to auscultation. Breath sounds equal bilaterally. GASTROINTESTINAL: Abdomen soft, non-tender, nondistended. Hepatic and splenic margins not palpable. MUSCULOSKELETAL: No obvious deformities. No clubbing. No cyanosis. No edema. NEUROLOGICAL: Awake and alert. No obvious cranial nerve deficits. Motor grossly within normal limits. Normal speech. PSYCHIATRIC: Appropriate mood and affect; insight and judgment normal. Data Data Last Documented VS Vital Signs Date Time Temp Pulse Resp B/P (MAP) Pulse Ox O2 Delivery O2 Flow Rate FiO2 10/09/17 16:15 50 17 136/68 (90) 95 Room Air 10/09/17 15:05 98.9 Orders Orders Electrocardiogram (10/09/17 15:07) Complete Blood Count With Diff (10/09/17 15:07) Comprehensive Metabolic Panel (10/09/17 15:07) Iv Access Insert/Monitor (10/09/17 15:07) Ckmb (Isoenzyme) Profile (10/09/17 15:07) Troponin I (10/09/17 15:07) Chest, Single Ap (10/09/17 15:07) Act Partial Throm Time (Ptt) (10/09/17 16:28) Prothrombin Time / Inr (Pt) (10/09/17 16:28) Admit Order (Ed Use Only) (10/09/17 17:31) Labs Laboratory Tests Test 10/09/17 15:52 10/09/17 16:20 White Blood Count 5.5 TH/MM3 Red Blood Count 4.04 MIL/MM3 Hemoglobin 13.3 GM/DL Hematocrit 38.7 % Mean Corpuscular Volume 95.9 FL Mean Corpuscular Hemoglobin 32.9 PG Mean Corpuscular Hemoglobin Concent 34.3 % Red Cell Distribution Width 13.1 % Platelet Count 165 TH/MM3 Mean Platelet Volume 8.3 FL Neutrophils (%) (Auto) 74.2 % Lymphocytes (%) (Auto) 17.0 % Monocytes (%) (Auto) 7.4 % Eosinophils (%) (Auto) 1.0 % Basophils (%) (Auto) 0.4 % Neutrophils # (Auto) 4.1 TH/MM3 Lymphocytes # (Auto) 0.9 TH/MM3 Monocytes # (Auto) 0.4 TH/MM3 Eosinophils # (Auto) 0.1 TH/MM3 Basophils # (Auto) 0.0 TH/MM3 CBC Comment DIFF FINAL Differential Comment Blood Urea Nitrogen 13 MG/DL Creatinine 0.86 MG/DL Random Glucose 91 MG/DL Total Protein 6.7 GM/DL Albumin 3.4 GM/DL Calcium Level 8.5 MG/DL Alkaline Phosphatase 84 U/L Aspartate Amino Transf (AST/SGOT) 16 U/L Alanine Aminotransferase (ALT/SGPT) 19 U/L Total Bilirubin 0.5 MG/DL Sodium Level 139 MEQ/L Potassium Level 3.9 MEQ/L Chloride Level 104 MEQ/L Carbon Dioxide Level 30.1 MEQ/L Anion Gap 5 MEQ/L Estimat Glomerular Filtration Rate 85 ML/MIN Total Creatine Kinase 52 U/L Troponin I LESS THAN 0.02 NG/ML Prothrombin Time 10.9 SEC Prothromb Time International Ratio 1.1 RATIO Activated Partial Thromboplast Time 27.3 SEC [facility] Medical Decision Making Medical Screen Exam Complete: Yes Emergency Medical Condition: Yes Medical Record Reviewed: Yes Differential Diagnosis Dehydration, electrolyte abnormality, arrhythmia, heart block, symptomatic anemia Narrative Course The patient was placed on ECG monitoring pulse oximetry. 12-lead EKG was obtained revealing sinus bradycardia with a rate in the 50s, second-degree AV block type I. Dr. Pablo discussed with Dr. Lu and it appears that the patient does have a history of first-degree AV block as well as second- degree AV block and previous EKGs. She is agreeable to mission for observation , she will consult, he is on metoprolol and she would like the metoprolol to be discontinued. Diagnosis Primary Impression: Dizziness Additional Impression: AV block, [place] 1 Admitting Information Admitting Physician Requests: Observation Jerardo Hull October 09, 2017 16:51
[2017-10-09 16:59] LABS: BLOOD UREA NITROGEN 13 MG/DL (7-18); CREATININE 0.86 MG/DL (0.60-1.30); GLOMERULAR FILTRATION RATE 85 ML/MIN (>89); GLUCOSE,RANDOM 91 MG/DL (74-106); TOTAL PROTEIN 6.7 GM/DL (6.4-8.2)
[2017-10-09 17:00] LABS: ALBUMIN 3.4 GM/DL (3.4-5.0); ALKALINE PHOSPHATASE 84 U/L (45-117); ALT (GPT) 19 U/L (12-78); AST (GOT) 16 U/L (15-37); BICARBONATE 30.1 MEQ/L (21.0-32.0); CALCIUM 8.5 MG/DL (8.5-10.1); CHLORIDE 104 MEQ/L (98-107); SODIUM (NA) 139 MEQ/L (136-145); TOTAL BILIRUBIN ADULT 0.5 MG/DL (0.2-1.0)
[2017-10-09 17:01] LABS: TROPONIN I LESS THAN 0.02 NG/ML (0.02-0.05)
[2017-10-09 17:02] LABS: INTERNATIONAL NORMALIZED RATIO 1.1 RATIO; PROTHROMBIN TIME - PATIENT 10.9 SEC (9.8-11.6)
[2017-10-09] MEDS ORDERED: SODIUM CHLORIDE 0.9% FLUSH 10 ML FLUSH IV FLUSH PRN (17:45)
[2017-10-09] MEDS ORDERED: NALOXONE HCL 0.4 MG/ML AMP IV PUSH PRN (17:45)
[2017-10-09] MEDS ORDERED: BISACODYL 10 MG SUPP RECTAL PRN (17:45)
[2017-10-09] MEDS ORDERED: ACETAMINOPHEN 325 MG TAB PO PRN (17:45)
[2017-10-09] MEDS ORDERED: SENNOSIDES 8.6 MG TAB PO PRN (17:45)
[2017-10-09] MEDS ORDERED: MAGNESIUM HYDROXIDE SUSP 30 ML CUP PO PRN (17:45)
[2017-10-09] MEDS ORDERED: LACTULOSE SYRUP 20 GM/30 ML CUP PO PRN (17:45)
[2017-10-09] MEDS ORDERED: ONDANSETRON ODT 4 MG TAB PO PRN (18:15)
[2017-10-09 18:49] VITALS: BP_SYST 156; BP_SYST 168; BP_SYST 182; BP_DIAS 82; BP_DIAS 90; PULSE 72; RESP 24; TEMP 98; O2SAT 95
[2017-10-09 20:03] VITALS: BP 143/77; PULSE 71; RESP 16; TEMP 98.3; O2SAT 94
[2017-10-09 20:20] VITALS: PULSE 69
[2017-10-09] MEDS: SODIUM CHLORIDE 0.9% FLUSH 10 ML FLUSH IV FLUSH SCH (20:57)
--- NOTE | 2017-10-09 21:43 | HHI.HP ---
[facility] Marquita Alonso MD Admission Diagnosis Dizziness Diagnoses: Travel History International Travel<30 Days: No Contact w/Intl Traveler <30 Da: No Traveled to Known Affected Are: No History of Present Illness 87-year-old male with a past medical history significant for coronary artery disease, status post CABG, hypertension, hyperlipidemia and hypothyroidism presents the emergency department for the evaluation of dizziness and chest tightness. The patient reports that for the past 3 days he has not been feeling well. He endorses intermittent chest tightness/pressure and dizziness. He states he feels as though he is spinning within her room. He also endorses a nonproductive cough and headache. He denies any shortness of breath. No abdominal pain. No nausea/vomiting/diarrhea. No lateralizing signs /symptoms. No weakness. Review of Systems Except as stated in HPI: all other systems reviewed are Neg Past Family Social History Past Medical History Hypertension Hyperlipidemia Coronary artery disease Hypothyroidism Past Surgical History AVR CABG TURP Reported Medications Reported Meds & Active Scripts Active Isosorbide Mononitrate ER (Isosorbide Mononitrate) 30 Mg Deejay 30 Mg PO DAILY@07 Reported Atorvastatin (Atorvastatin Calcium) 20 Mg Tab 20 Mg PO HS Metoprolol Tartrate 25 Mg Tab 12.5 Mg PO HS Vitamin C (Ascorbic Acid) 250 Mg Chew 500 Mg CHEW DAILY Aspirin 81 Mg Chew 81 Mg CHEW DAILY Amlodipine (Amlodipine Besylate) 10 Mg Tab 10 Mg PO DAILY Vitamin B-12 (Cyanocobalamin) 1,000 Mcg Tab 1,000 Mcg PO DAILY Levothyroxine (Levothyroxine Sodium) 25 Mcg Tab 25 Mcg PO MON, Multiple Vitamin 1 Tab 1 Tab PO DAILY Allergies: Coded Allergies: penicillin G (Unverified Allergy, Severe, Swelling, 10/09/17) Family History Both parents with coronary artery disease. Social History Negative for alcohol, tobacco and illicit drugs Physical Exam Vital Signs Vital Signs Date Time Temp Pulse Resp B/P (MAP) Pulse Ox O2 Delivery O2 Flow Rate FiO2 10/09/17 20:20 69 10/09/17 20:03 98.3 71 16 143/77 (99) 94 10/09/17 18:50 10/09/17 18:49 98.0 72 24 182/90 (120) 95 168/82 (110) 156/82 (106) 10/09/17 16:15 50 17 136/68 (90) 95 Room Air 10/09/17 16:07 48 16 94 Room Air 10/09/17 15:05 98.9 34 18 112/62 (79) 95 Physical Exam GENERAL: SKIN: No rashes, ecchymoses or lesions. Cool and dry. HEAD: Atraumatic. Normocephalic. No temporal or scalp tenderness. EYES: Pupils equal round and reactive. Extraocular motions intact. No scleral icterus. No injection or drainage. ENT: Nose without bleeding, purulent drainage or septal hematoma. Throat without erythema, tonsillar hypertrophy or exudate. Uvula midline. Airway patent. NECK: Trachea midline. No JVD or lymphadenopathy. Supple, nontender, no meningeal signs. CARDIOVASCULAR: Regular rate and rhythm. 3/6 murmur. RESPIRATORY: Clear to auscultation. Breath sounds equal bilaterally. No wheezes , rales, or rhonchi. GASTROINTESTINAL: Abdomen soft, non-tender, nondistended. No hepato-splenomegaly , or palpable masses. No guarding. MUSCULOSKELETAL: Extremities without clubbing, cyanosis, or edema. No joint tenderness, effusion, or edema noted. No calf tenderness. NEUROLOGICAL: Awake and alert. Cranial nerves II through XII intact. Motor and sensory grossly within normal limits. Normal speech. Laboratory Laboratory Tests Test 10/09/17 15:52 10/09/17 16:20 White Blood Count 5.5 Red Blood Count 4.04 Hemoglobin 13.3 Hematocrit 38.7 Mean Corpuscular Volume 95.9 Mean Corpuscular Hemoglobin 32.9 Mean Corpuscular Hemoglobin Concent 34.3 Red Cell Distribution Width 13.1 Platelet Count 165 Mean Platelet Volume 8.3 Neutrophils (%) (Auto) 74.2 Lymphocytes (%) (Auto) 17.0 Monocytes (%) (Auto) 7.4 Eosinophils (%) (Auto) 1.0 Basophils (%) (Auto) 0.4 Neutrophils # (Auto) 4.1 Lymphocytes # (Auto) 0.9 Monocytes # (Auto) 0.4 Eosinophils # (Auto) 0.1 Basophils # (Auto) 0.0 CBC Comment DIFF FINAL Differential Comment Blood Urea Nitrogen 13 Creatinine 0.86 Random Glucose 91 Total Protein 6.7 Albumin 3.4 Calcium Level 8.5 Alkaline Phosphatase 84 Aspartate Amino Transf (AST/SGOT) 16 Alanine Aminotransferase (ALT/SGPT) 19 Total Bilirubin 0.5 Sodium Level 139 Potassium Level 3.9 Chloride Level 104 Carbon Dioxide Level 30.1 Anion Gap 5 Estimat Glomerular Filtration Rate 85 Total Creatine Kinase 52 Troponin I LESS THAN 0.02 Prothrombin Time 10.9 Prothromb Time International Ratio 1.1 Activated Partial Thromboplast Time 27.3 Result Diagram: 10/09/17 1552 10/09/17 155 Caprini VTE Risk Assessment Caprini VTE Risk Assessment: Mod/High Risk (score >= 2) Caprini Risk Assessment Model Point Value = 1 Point Value = 2 Point Value = 3 Point Value = 5 Age 41-60 Minor surgery BMI > 25 kg/m2 Swollen legs Varicose veins or History of unexplained or recurrent spontaneous Oral contraceptives or hormone replacement Sepsis (< 1 month) Serious lung disease, including pneumonia (< 1 month) Abnormal pulmonary function Acute myocardial infarction Congestive heart failure (< 1 month) History of inflammatory bowel disease Medical patient at bed rest Age 61-74 Arthroscopic surgery Major open surgery (> 45 min) Laparoscopic surgery (> 45 min) Malignancy Confined to bed (> 72 hours) Immobilizing plaster cast Central venous access Age >= 75 History of VTE Family history of VTE Factor V Leiden Prothrombin [id number] Lupus anticoagulant Anticardiolipin antibodies Elevated serum homocysteine Heparin-induced thrombocytopenia Other congenital or acquired thrombophilia Stroke (< 1 month) Elective arthroplasty Hip, pelvis, or leg fracture Acute spinal cord injury (< 1 month) Prophylaxis Regimen Total Risk Factor Score Risk Level Prophylaxis Regimen 0-1 Low Early ambulation 2 Moderate Order ONE of the following: *Sequential Compression Device (SCD) *Heparin 5000 units SQ BID 3-4 Higher Order ONE of the following medications: *Heparin 5000 units SQ TID *Enoxaparin/Lovenox 40 mg SQ daily (WT < 150 kg, CrCl > 30 mL/min) *Enoxaparin/Lovenox 30 mg SQ daily (WT < 150 kg, CrCl > 10-29 mL/min) *Enoxaparin/Lovenox 30 mg SQ BID (WT < 150 kg, CrCl > 30 mL/min) AND/OR *Sequential Compression Device (SCD) 5 or more Highest Order ONE of the following medications: *Heparin 5000 units SQ TID (Preferred with Epidurals) *Enoxaparin/Lovenox 40 mg SQ daily (WT < 150 kg, CrCl > 30 mL/min) *Enoxaparin/Lovenox 30 mg SQ daily (WT < 150 kg, CrCl > 10-29 mL/min) *Enoxaparin/Lovenox 30 mg SQ BID (WT < 150 kg, CrCl > 30 mL/min) AND *Sequential Compression Device (SCD) Assessment and Plan Assessment and Plan Assessment/plan: 1. Dizziness Unclear etiology Given patient's significant cardiac history, concern for cardiac cause Last catheterization done on 08/09/17 showed patent graft with noncritical obstruction of the diagonal branch, RCA and circumflex arteries without obstruction Echo pending Patient's membership sales advisor, Dr. Lu consulted, appreciate recommendations 2. Chest tightness/pressure EKG significant for second-degree AV block with RBBB, unchanged from previous, personally reviewed Initial troponin negative ACS rule out pending; serial troponins/EKGs Cath as above 3. Hypertension/hyperlipidemia/hypothyroidism Continue home medications FEN Heart healthy diet Electrolytes: Monitor and replete as needed Heparin Antoinette Melo MD October 09, 2017 21:43
--- NOTE | 2017-10-09 22:10 | PD ---
Physical Exam Narrative Please see mid level provider note for full history, physical, and disposition. I saw and evaluated this patient. Briefly, patient presents to ER c/o dizziness. ECG showed 2nd degree AV block with RBBB. Spoke to his manager research and development, Dr. Lu, who advised that he has a h/o [place] and that she wants his metoprolol stopped and she will evaluate patient in house in the morning. Patient's BP 30s-70s in ER, he maintained his BP. Data Data Last Documented VS Vital Signs Date Time Temp Pulse Resp B/P (MAP) Pulse Ox O2 Delivery O2 Flow Rate FiO2 10/09/17 16:15 50 17 136/68 (90) 95 Room Air 10/09/17 15:05 98.9 Orders Orders Electrocardiogram (10/09/17 15:07) Complete Blood Count With Diff (10/09/17 15:07) Comprehensive Metabolic Panel (10/09/17 15:07) Iv Access Insert/Monitor (10/09/17 15:07) Ckmb (Isoenzyme) Profile (10/09/17 15:07) Troponin I (10/09/17 15:07) Chest, Single Ap (10/09/17 15:07) Act Partial Throm Time (Ptt) (10/09/17 16:28) Prothrombin Time / Inr (Pt) (10/09/17 16:28) Admit Order (Ed Use Only) (10/09/17 17:31) Labs Laboratory Tests Test 10/09/17 15:52 10/09/17 16:20 White Blood Count 5.5 TH/MM3 Red Blood Count 4.04 MIL/MM3 Hemoglobin 13.3 GM/DL Hematocrit 38.7 % Mean Corpuscular Volume 95.9 FL Mean Corpuscular Hemoglobin 32.9 PG Mean Corpuscular Hemoglobin Concent 34.3 % Red Cell Distribution Width 13.1 % Platelet Count 165 TH/MM3 Mean Platelet Volume 8.3 FL Neutrophils (%) (Auto) 74.2 % Lymphocytes (%) (Auto) 17.0 % Monocytes (%) (Auto) 7.4 % Eosinophils (%) (Auto) 1.0 % Basophils (%) (Auto) 0.4 % Neutrophils # (Auto) 4.1 TH/MM3 Lymphocytes # (Auto) 0.9 TH/MM3 Monocytes # (Auto) 0.4 TH/MM3 Eosinophils # (Auto) 0.1 TH/MM3 Basophils # (Auto) 0.0 TH/MM3 CBC Comment DIFF FINAL Differential Comment Blood Urea Nitrogen 13 MG/DL Creatinine 0.86 MG/DL Random Glucose 91 MG/DL Total Protein 6.7 GM/DL Albumin 3.4 GM/DL Calcium Level 8.5 MG/DL Alkaline Phosphatase 84 U/L Aspartate Amino Transf (AST/SGOT) 16 U/L Alanine Aminotransferase (ALT/SGPT) 19 U/L Total Bilirubin 0.5 MG/DL Sodium Level 139 MEQ/L Potassium Level 3.9 MEQ/L Chloride Level 104 MEQ/L Carbon Dioxide Level 30.1 MEQ/L Anion Gap 5 MEQ/L Estimat Glomerular Filtration Rate 85 ML/MIN Total Creatine Kinase 52 U/L Troponin I LESS THAN 0.02 NG/ML Prothrombin Time 10.9 SEC Prothromb Time International Ratio 1.1 RATIO Activated Partial Thromboplast Time 27.3 SEC MDM Supervised Visit with ANTONIO: Yes Diagnosis Primary Impression: Dizziness Additional Impression: AV block, [place] 1 Admitting Information Admitting Physician Requests: Admit Condition: Stable Gini Onofre MD October 09, 2017 22:10
[2017-10-09 23:14] VITALS: PULSE 56
[2017-10-10 00:10] LABS: TROPONIN I LESS THAN 0.02 NG/ML (0.02-0.05)
[2017-10-10 00:55] VITALS: BP 127/76; PULSE 71; RESP 16; TEMP 98.1; O2SAT 97
[2017-10-10 03:39] VITALS: BP 139/74; PULSE 58; RESP 17; TEMP 98.3; O2SAT 93
[2017-10-10] MEDS ORDERED: LEVOTHYROXINE SODIUM 25 MCG TAB PO SCH (06:00)
[2017-10-10] MEDS ORDERED: ISOSORBIDE MONONITRATE 30 MG CR TAB (IMDUR) PO SCH (07:00)
[2017-10-10 07:33] VITALS: BP 115/63; PULSE 70; RESP 20; TEMP 97.4; O2SAT 95
--- NOTE | 2017-10-10 07:51 | HHI.DCPOC ---
Discharge Care Plan Diagnosis: (1) Chest pain (2) Dizziness (3) CAD (coronary artery disease) (4) HTN (hypertension) Goals to Promote Your Health * To prevent worsening of your condition and complications * To maintain your health at the optimal level Directions to Meet Your Goals Take your medications as prescribed Follow your dietary instruction Follow activity as directed Keep your appointments as scheduled Take your immunizations and boosters as scheduled If your symptoms worsen call your PCP, if no PCP go to Urgent Care Center or Emergency Room Smoking is Dangerous to Your Health. Avoid second hand smoke Call the 24-hour hour crisis hotline for domestic abuse at [place] Harvey PA-C October 10, 2017 07:51
[2017-10-10 08:08] LABS: TROPONIN I 0.02 NG/ML (0.02-0.05)
--- NOTE | 2017-10-10 08:13 | MB ---
cc: Barbie Lu MD DATE: 10/10/2017 REASON FOR CONSULTATION: Dizziness and abnormal EKG. HISTORY OF PRESENT ILLNESS: Mr. Tanner is an 87-year-old man status post CABG and aortic valve replacement with a cardiac catheterization 2 months ago. This did show a patent BORRERO to LAD. The RCA and circumflex did not have any flow-limiting lesions. There is a diseased diagonal that was stable and we will continue with medical management. The patient this visit complained of dizziness. He denied any chest pain to me. He reports he has been walking for at least 30 minutes a day until this weekend when he began not feeling well. He reported dizziness that was intermittent and did note some room spinning. There was also a nonproductive cough. He denies any syncope. PAST MEDICAL HISTORY: Significant for hypertension, hyperlipidemia, coronary artery disease with a CABG and AVR, hypothyroidism, GERD, BPH. OUTPATIENT MEDICATIONS: Isosorbide, atorvastatin, metoprolol, vitamin C, aspirin, amlodipine, levothyroxine. ALLERGIES: PENICILLIN. FAMILY HISTORY: Positive for CAD. SOCIAL HISTORY: Negative for alcohol or tobacco use. REVIEW OF SYSTEMS: Except as mentioned in the HPI, all 12 systems are negative. PHYSICAL EXAMINATION: VITAL SIGNS: 58, 17, 139/74. GENERAL: He is a well-appearing man, who is in no apparent distress. NECK: Free from JVD. LUNGS: Bilaterally clear to auscultation. CARDIOVASCULAR: He has a normal S1 and S2. I did not appreciate any murmurs, rubs or gallops. ABDOMEN: Soft. EXTREMITIES: Free from edema. LABORATORY DATA: EKG shows Wenckebach. Lab values significant for a BUN of 13, creatinine of 0.9, serial troponin of less than 0.02. Telemetry - this was reviewed and does show a sinus rhythm, sinus bradycardia and Wenckebach. IMPRESSIONS: Dizziness - there is no overt cardiac etiology to his dizziness. He did have a recent cardiac catheterization which was overall stable. Telemetry does show Wenckebach and some bradycardia which does not appear to be related to his symptoms at all. He has had excellent recent exercise capacity. At this point, it does appear to be a noncardiac etiology, possibly vertigo or other inner ear disturbance, possibly related to a subclinical viral infection. I am going to discontinue his metoprolol in light of his dizziness and mild bradycardia just to ensure that this is not confounding. Coronary artery disease - the patient does appear stable and is status post recent catheterization. History of AVR - he is stable by exam. DISPOSITION: The patient will be discharged today. He will followup with me next week. MD MAAME Clancy/TL , 07:34 AM , 08:11 AM
[2017-10-10] MEDS: HEPARIN SODIUM - SQ 10,000 UNITS/ML VIAL SQ SCH ×2 (09:00→10:11)
[2017-10-10] MEDS: SODIUM CHLORIDE 0.9% FLUSH 10 ML FLUSH IV FLUSH SCH (09:00)
[2017-10-10] MEDS ORDERED: ASPIRIN 81 MG CHEW TAB CHEW SCH (09:00)
--- NOTE | 2017-10-10 09:47 | EKG ---
Date Performed: 10/09/2017 Time Performed: 15:09:45 PTAGE: 87 years EKG: SINUS BRADYCARDIA WITH WENCKEBACH RIGHT BUNDLE BRANCH BLOCK ABNORMAL ECG Since PREVIOUS TRACING , no significant change noted PREVIOUS TRACIN08/08/2017 22.25 DOCTOR: Barbie Lu Interpretating Date/Time 10/10/2017 09:46:25
--- NOTE | 2017-10-10 09:58 | HHI.PR ---
Subjective Remarks Follow-up dizziness October 10, 2017-patient seen and examined, reported improvement of symptoms since admission. She was seen and evaluated by cardiology and cleared him for discharge. Other than bradycardia patient vitals stable Objective Vitals Vital Signs Date Time Temp Pulse Resp B/P (MAP) Pulse Ox O2 Delivery O2 Flow Rate FiO2 10/10/17 07:33 97.4 70 20 115/63 (80) 95 10/10/17 03:39 98.3 58 17 139/74 (95) 93 10/10/17 00:55 98.1 71 16 127/76 (93) 97 10/09/17 23:14 56 10/09/17 20:20 69 10/09/17 20:03 98.3 71 16 143/77 (99) 94 10/09/17 18:50 10/09/17 18:49 98.0 72 24 182/90 (120) 95 168/82 (110) 156/82 (106) 10/09/17 16:15 50 17 136/68 (90) 95 Room Air 10/09/17 16:07 48 16 94 Room Air 10/09/17 15:05 98.9 34 18 112/62 (79) 95 Result Diagram: 10/09/17 1552 10/09/17 1552 Imaging Last Impressions Chest X-Ray 10/09/17 1507 Signed Impressions: Service Date/Time: Monday, October 09, 2017 15:14 - CONCLUSION: 1. No acute abnormality or significant interval change. Elroy Cardenas MD Objective Remarks GENERAL: NAD SKIN: Warm and dry. HEAD: Normocephalic. EYES: No scleral icterus. No injection or drainage. NECK: Supple, trachea midline. No JVD or lymphadenopathy. CARDIOVASCULAR: Regular rate and rhythm without murmurs, gallops, or rubs. RESPIRATORY: Breath sounds equal bilaterally. No accessory muscle use. GASTROINTESTINAL: Abdomen soft, non-tender, nondistended. MUSCULOSKELETAL: No cyanosis, or edema. BACK: Nontender without obvious deformity. No CVA tenderness. A/P Problem List: (1) Bradycardia ICD Code: R00.1 - Bradycardia, unspecified (2) Dizziness ICD Code: R42 - Dizziness and giddiness Status: Acute Assessment and Plan 87-year-old man with 1. Dizziness-resolved Noncardiac Chest x-ray without any cardiopulmonary disease Appreciate input from cardiology, and patient will follow outpatient 2. Chest tightness/pressure Resolved since admission ACS ruled out per protocol with serial cardiac enzyme and EKG Appreciate input from cardiology Patient to follow outpatient with Dr. Lu She will have to do 2D echo outpatient 3. Bradycardia Although is symptomatic, however Lopressor was discontinued by cardiology 4. Hypertension/hyperlipidemia/hypothyroidism Continue home medications Discharge Planning Discharge patient to home Condition on discharge: Improved Regular Diet as tolerated Ad Natasha activity Rx written:none Follow-up with primary care physician in 1week Outpatient follow with Dr. Lu, cardiology Noah Mauricio MD October 10, 2017 09:58
[2017-10-10 10:53] VITALS: BP 106/64; PULSE 50; RESP 12; TEMP 97.8; O2SAT 97
--- NOTE | 2017-10-10 19:11 | EKG ---
Date Performed: 10/10/2017 Time Performed: 06:06:16 PTAGE: 87 years EKG: SINUS BRADYCARDIA WITH 2ND DEGREE AV BLOCK, MOBITZ TYPE II BORDERLINE LEFT AXIS DEVIATION R IGHT BUNDLE BRANCH BLOCK ABNORMAL ECG Since the PREVIOUS TRACING , no significant change noted PREVIOUS TRACIN10/09/2017 15.09 DOCTOR: Barbie Lu Interpretating Date/Time 10/10/2017 19:10:21
[2017-10-10] MEDS ORDERED: METOPROLOL TARTRATE 25 MG TAB PO SCH (21:00)
[2017-10-10] MEDS ORDERED: ATORVASTATIN 20 MG TAB PO SCH (21:00)
== END 2017-10-10 13:23 | disposition home or self-care (01) ==
LOC: NEPE 14:44 → NEDA 17:35 → NEPHCDU 18:48
PROVIDERS: ADMIT Hospitalist; ATTEND Hospitalist
DX: R42 Dizziness and giddiness (principal); R07.89 Other chest pain; I44.1 Atrioventricular block, second degree; I45.10 Unspecified right bundle-branch block; R51 Headache; R05 Cough; I25.10 Atherosclerotic heart disease of native coronary artery without angina pectoris; I10 Essential (primary) hypertension; R00.1 Bradycardia, unspecified; E78.5 Hyperlipidemia, unspecified; E03.9 Hypothyroidism, unspecified; K21.9 Gastro-esophageal reflux disease without esophagitis; H91.90 Unspecified hearing loss, unspecified ear; N40.0 Benign prostatic hyperplasia without lower urinary tract symptoms; Z95.1 Presence of aortocoronary bypass graft; Z79.899 Other long term (current) drug therapy; Z79.82 Long term (current) use of aspirin; Z95.2 Presence of prosthetic heart valve
CPT/HCPCS: 71045; 80053; 82550; 84484; 85025; 85610; 85730; 93005; 97162; 99285; G0378; G8987; G8988; J1644